=== PATIENT | female | born 1965 | race Caucasian/White ===

== ENCOUNTER → 2017-09-14 08:48 | Outpatient (CLI) | payer BC, SELFPAY ==
--- NOTE | 2017-09-14 09:08 | BI_ITS ---
MAMMOGRAPHY - BILATERAL SCREENING 3-D SERA SYNTHESIS REASON FOR EXAM: Female, 51 years old. Bilateral Screening 3-D tomosynthesis PERTINENT HISTORY: No significant family history. TECHNIQUE: 2-D mammograms and 3-D Sera synthesis of the breast (s) were performed. CAD was performed. COMPARISON: August 19, 2015, July 09, 2014 FINDINGS: The breast composition is composed of scattered fibroglandular density. Scattered benign calcifications are seen. No dense spiculated masses or suspicious microcalcifications are identified. No architectural distortion is identified. There is no skin thickening or retraction. There has been no significant change since the prior study. BI/SCREENING MAMM (CAD), BILAT IMPRESSION: No mammographic signs of malignancy. Routine yearly mammograms recommended. ASSESSMENT CATEGORY: BIRADS Category 2: Benign. A letter regarding these results will be sent to the patient by the facility within 30 days. FOLLOW UP RECOMMENDATION: Yearly follow up mammogram recommended. (A) Approximately 10% of breast cancers are not detected by mammography. A normal mammogram should not delay biopsy of a clinically suspicious abnormality. Electronically Signed: Carlos Alberto Tobar MD at 18:04 EDT , Service support ,
== END ==
PROVIDERS: Family Provider Family Medicine; PCP Family Medicine; Visit Provider Obstetrics & Gynecology
DX: Z12.31 Encounter for screening mammogram for malignant neoplasm of breast (principal)
CPT/HCPCS: 77063; 77067

== ENCOUNTER 2018-04-30 11:38 | Day surgery (SDC) | payer BC, SELFPAY ==
--- NOTE | 2018-04-30 | IMM_PTH ---
PATIENT: MARLENE SEAMAN LOC: EN U#:[id number] AGE/SX: 52/F ROOM: RE04/30/[address]: Dr. Edd Obregon MD : 1965 BED: DIS: 04/30/2018 SPEC #: [id number] RECD: 05/02/18 11:03 STATUS: CAROLINE REMarimar #: [id number] YUNIER: 04/30/18 00:[address]: Edd Obregon DEPT: IMMUNOHISTOCHEMISTRY RECD BY: Alla Baker ENTERED: 05/02/18 11:03 SP TYPE: IMMUNO OTHR DR: Dr. Ismael Rios MD Tissues: A - Stomach, NOS Procedures: H Pylori (initial) PHYSICIAN & INSTITUTION [place] [id number] SPECIMEN INFORMATION: Tissue Source: A - Antral biopsy Clinical Info: Constipation, LLQ pain, family history of cancer Specimen Number: [id number] CPT code: 15253 METHODOLOGY: Deparaffinized sections of prefer/formalin-fixed tissue or PAP/DQ stained slides are incubated with monoclonal/polyclonal antibodies/oligonucleotide probes. Localization is made via biotin free immunoperoxidase method. Appropriate controls are performed and reacted as expected. Results on target cell population are indicated in the following table: RESULTS: ANTIBODY / CLONE RESULT Block A H Pylori (polyclonal) negative These tests were developed and their performance characteristics determined by [facility]. They may not have been cleared or approved by the U.S. Food and Drug Administration. The FDA has determined that such clearance or approval is not necessary. INTERPRETATION: A. Antral biopsy: Negative for Helicobacter pylori. AM:giulia 05/05/18
--- NOTE | 2018-04-30 06:54 | HP.PCM_ITS ---
History and Physical Date of Admission: 04/30/18 Becki Carballo a 52 year old female who is a consultation requested by Dr. Rios?for an opinion regarding LLQ pain. ?My final recommendations will be communicated back to the requesting physician by way of shared Medical record. The patient has not?been seen previously. The patient is not aware of a family?history of colon cancer. ? The patient was seen by ?on 04/10/18, leading to this consultation. ?That note has been reviewed and part as follows: Has been having bowel issues for several years, but has decided since she is of age for colonoscopy she would discuss these issues with provider. ?She has been having constipation, wont have BM for a week then she will have LLQ pain then has BM that starts out hard then is diarrhea half way through. ?Unsure if she has any family hx of colon cancer, cancers do run in her family. ?She did use Miralax in past, but that seemed to cause her to be bloated so she hasn't been taking that. ?Has used Fiber supplements in the past. ? Component Latest Ref Rng & Units 04/03/2018 Protein, Total 6.3 - 8.0 g/dL 7.3 Albumin 3.9 - 4.9 g/dL 4.2 Calcium 8.5 - 10.2 mg/dL 9.4 Bilirubin, Total 0.2 - 1.3 mg/dL 0.3 Alkaline Phosphatase 34 - 123 U/L 35 AST 13 - 35 U/L 20 Glucose 74 - 99 mg/dL 85 BUN 7 - 21 mg/dL 12 Creatinine 0.58 - 0.96 mg/dL 0.87 Sodium 136 - 144 mmol/L 137 Potassium 3.7 - 5.1 mmol/L 4.3 Chloride 97 - 105 mmol/L 100 CO2 22 - 30 mmol/L 24 Anion Gap 9 - 18 mmol/L 13 ALT 7 - 38 U/L 10 eGFR- ? >60 eGFR-All Other Races . >60 Phosphorus 2.7 - 4.8 mg/dL 3.1 Magnesium 1.7 - 2.3 mg/dL 2.0 ? Presenting complaint: The patient presents today reporting abdominal pain and altered bowel habits off and on for years. ?Really bad when her daughter was born 17 yrs ago. ?She can't recall and issues when in teens or early twenties. ? The patient tells me that she will have bright red blood with constipation - anal tears. ? The patient isn't aware of any colon cancer in her family. Mother had stomach cancer. ?? . ? REVIEW OF SYSTEMS: GENERAL: No unplanned weight loss. RESPIRATORY: Negative for cough, hemoptysis, wheezing, COPD, dyspnea or shortness of breath CARDIOVASCULAR: ?Notes occasional palpitations - has had the work up. GI: The patient states that her appetite has been adequate. ?There has been no?nausea, no?vomiting. She denies?dysphagia and denies?odynophagia. There has not?been indigestion or?heartburn. There has not?been positional?regurgitation. Bowel habits have been irregular. There has been diarrhea. There has ?been constipation. The patient admits to?rectal bleeding. There has not?been melena. Intermittent abdominal pain that is located in the left lower?quadrant. LEASING DIRECTOR: Negative for abnormal vaginal bleeding, abnormal vaginal discharge. ?LMP: medication induced amenorrhagia. PSYCH: Sees Dr. Severino. HEMATOLOGY/LYMPHOLOGY Negative for prolonged bleeding, bruising easily or swollen nodes ENDOCRINE: No thyroid or diabetes. NEURO: ?No history of headaches, syncope, paralysis, seizures or tremors All other reviewed and negative other than HPI. ? ? PAST MEDICAL HISTORY PAST MEDICAL HISTORY Diagnosis Date ? Anorexia nervosa, restricting type ? ? Anxiety ? ? Ascending aorta dilation (HCC) ? ? 3.5 cm ? Cervical disc disease ? ? C6-7 ? Eating disorder, unspecified ? ? Esophageal reflux ? ? Lung nodule ? ? right ? Major depressive disorder, recurrent episode, mild (HCC) ? ? PTSD (post-traumatic stress disorder) ? ? Snoring ? ? PAST SURGICAL HISTORY PAST SURGICAL HISTORY Procedure Laterality Date ? LAMINECTOMY,CERVICAL ? 03/14/12 ? Laminectomy, cervical, diskectomy with fusion. ? LAPAROSCOPIC CHOLEYCYSTECTOMY ? 1996 ? Cholecystectomy, lap ? LIGATE FALLOPIAN TUBE ? 2001 ? Tubal ligation ? REPAIR UMBILICAL NICA,5+Y/O,REDUC ? 06/11/2007 ? Simple ? FAMILY HISTORY FAMILY HISTORY Problem Relation Age of Onset ? Hypertension Mother ? ? Cancer Maternal Grandmother ?Stomach ? Cancer Paternal Grandmother ?COPD ? Alcohol/Drug Maternal Grandfather ? ? Ischemic Heart Disease Maternal Grandfather ? ? Hypertension Maternal Grandfather ? ? Hypertension Brother ? ? other (Lung cancer) Paternal Grandfather ? ? other (pancreatic ca) Paternal Grandfather ?4 MGM siblings and patient's cousins. ? CURRENT MEDICATIONS ? Current Outpatient Prescriptions: buPROPion XL (WELLBUTRIN XL) 300 mg 24 hr tablet Take 1 tablet by mouth once daily. Disp: 30 tablet Rfl: 6 cholecalciferol, vitamin D3, (VITAMIN D3 ORAL) Take 1,000 mg by mouth once daily. Disp: Rfl: Drospirenone-Ethinyl Estradiol 3-0.02 mg per tablet Take 1 tablet by mouth once daily. Disp: Rfl: 0 [place]-3 Fatty Acids (OMEGA 3) 550 mg ORAL Cap Take one(1) tablet daily. Disp: Rfl: 0 Swab (NO-STING SKIN-PREP) swab 1 application once daily as needed (prior to attaching TENS unit pads). Disp: 50 Each Rfl: 1 TENS unit and electrodes cmpk Use as instructed. Disp: 1 Device Rfl: 0 traZODone (DESYREL) 50 mg tablet Take 1-2 tablets by mouth daily at bedtime. Disp: 60 tablet Rfl: 6 ? No current facility-administered medications for this visit. ? ? SOCIAL HISTORY: Patient is . She has never smoked. ?She?reports her alcohol use as occasionally having a glass of wine. She denies?recreational drug use. ? ? PHYSICAL EXAMINATION: Blood pressure 123/80, pulse 93, height 162.6 cm (5' 4), weight 57.8 kg (127 lb 6.4 oz). General Appearance: Well appearing, alert, in no acute distress, well-hydrated, well nourished. Skin: Skin color, texture, turgor normal, no suspicious rashes or lesions. Head: Normocephalic, no masses, lesions, or abnormalities. Eyes: Anicteric sclera. Oropharynx: Lips, mucosa, and tongue normal, teeth and gums normal, oropharynx normal. Neck: Supple, no adenopathy. Lungs: lungs clear to auscultation. Heart: RRR without murmur. Abdomen: Abdomen soft. Slight tenderness to palpation LLQ, non-tender otherwise. Bowel sounds normal. No masses, organomegaly. Extremities: No deformities or?edema. Peripheral Pulses: Normal. Neurologic: Gait normal. Sensation grossly intact. ? ? Impression: Family history of stomach cancer 2)colorectal cancer screening ?3)intermittent LLQ pain ? ? Plan: The patient will be scheduled for an upper endoscopy and?colonoscopy. ?She will require MAC due to anxiety.?Preparation for the procedures, using GoLytely as the laxative, have been explained in detail. ?The risks, benefits, anticipated outcomes and possible complications were mentioned. I explained the procedure in understandable terms and the patient was given printed material concerning the planned procedure. The patient had the opportunity to ask questions concerning the planned procedure. The patient freely consents to the planned procedure. ? ? The patient is encouraged to call with any questions or concerns, or should there be any change ?in health status between now and the scheduled procedure. ? I have personally interviewed and examined this patient. ?I have read the information that the HUMAN PERFORMANCE CONSULTANT?documented in this encounter. I spent 30?minutes in the visit, with more than 50% of the total [id number] time of the visit in counseling / coordination of care. ?? Laxmi Arriaga RN DISTILLERY MILLER.ELECTRIC FAN ASSEMBLER
[2018-04-30 12:15] VITALS: BP 95/64; PULSE 64; RESP 16; TEMP 36.9; O2SAT 100; BMI 21.8
--- NOTE | 2018-04-30 13:00 | COLBX_PTH ---
PATIENT: MARLENE SEAMAN LOC: EN U#:[id number] AGE/SX: 52/F ROOM: RE04/30/[address]: Dr. Edd Obregon MD : 1965 BED: DIS: 04/30/2018 SPEC #: [id number] RECD: 04/30/18 15:14 STATUS: CAROLINE KEN #: [id number] YUNIER: 04/30/18 13:[address]: Edd Obregon DEPT: SURGICAL PATHOLOGY RECD BY: Rolando Bryan ENTERED: 05/01/18 12:09 SP TYPE: COLON BX OTHR DR: Dr. Ismael Rios MD Tissues: A - Gastric mucous membrane B - Sigmoid colon biopsy Procedures: Surgery Specimen Level IV HEADER OPERATION: Colonoscopy, EGD ([facility] [place]) PRE-OP DIAGNOSIS: Family history of cancer, constipation, LLQ pain TISSUE SUBMITTED: A - Antral biopsy, B - Sigmoid polyps MICROSCOPIC DIAGNOSIS A. Gastric antrum, biopsy: Mild chronic gastritis. B. Sigmoid colon polyps, biopsy: Two fragments of tubular adenoma. AM:milton 05/02/18 COMMENT A. The results of immunohistochemistry for Helicobacter pylori will be reported separately ([id number]). MICROSCOPIC DESCRIPTION Slides are reviewed. GROSS DESCRIPTION A - Received in fixative is one container labeled with the patient's name and designated antral biopsy. The specimen consists of one irregular fragment of light morrison soft tissue that measures 0.3 x 0.3 x 0.1 cm. The specimen is totally submitted in one cassette. B - Received in fixative is one container labeled with the patient's name and designated sigmoid polyp. The specimen consists of two irregular fragments of morrison polypoid tissue that in aggregate measure 1 x 0.5 x 0.3 cm. The specimen is totally submitted in one cassette. / SJ:milton 05/01/18 TC:5 CPT: 91404 x2
[2018-04-30 14:14] VITALS: BP 109/64; BP 95/64; PULSE 76; RESP 16; TEMP 36.3; O2SAT 100
[2018-04-30 14:19] VITALS: BP 122/63; BP 95/64; PULSE 81; RESP 16; O2SAT 100
[2018-04-30 14:24] VITALS: BP 122/60; BP 95/64; PULSE 78; RESP 16; O2SAT 100
[2018-04-30 14:29] VITALS: BP 95/64; BP 99/69; PULSE 89; RESP 16; TEMP 36.8; O2SAT 100
[2018-04-30 14:59] VITALS: BP 95/64
--- NOTE | 2018-05-05 11:17 | OP.ENDO_ITS ---
Patient Name: Becki Carballo Procedure Date: 04/30/2018 1:34 PM Date of : 1965 Age: 52 Procedure: Upper GI endoscopy Indications: Family history of gastric cancer Providers: Edd Obregon MD Referring MD: Ismael Rios Medicines: Monitored Anesthesia Care Patient Profile: This is a 52 year old female. Refer to note in patient chart for documentation of history and physical. Complications: No immediate complications. Procedure: Pre-Anesthesia Assessment: - Prior to the procedure, a History and Physical was performed, and patient medications and allergies were reviewed. The patient is competent. The risks and benefits of the procedure and the sedation options and risks were discussed with the patient. All questions were answered and informed consent was obtained. Patient identification and proposed procedure were verified by the physician, the nurse and the soda flaker in the procedure room. Mental Status Examination: alert and oriented. Airway Examination: normal oropharyngeal airway and neck mobility. Respiratory Examination: clear to auscultation. CV Examination: normal. Prophylactic Antibiotics: The patient does not require prophylactic antibiotics. Prior Anticoagulants: The patient has taken no previous anticoagulant or antiplatelet agents. After reviewing the risks and benefits, the patient was deemed in satisfactory condition to undergo the procedure. The anesthesia plan was to use monitored anesthesia care (MAC). Immediately prior to administration of medications, the patient was re-assessed for adequacy to receive sedatives. The heart rate, respiratory rate, oxygen saturations, blood pressure, adequacy of pulmonary ventilation, and response to care were monitored throughout the procedure. The physical status of the patient was re-assessed after the procedure. After obtaining informed consent, the endoscope was passed under direct vision. Throughout the procedure, the patient's blood pressure, pulse, and oxygen saturations were monitored continuously. The gastroscope was introduced through the mouth, and advanced to the jejunum. The upper GI endoscopy was accomplished without difficulty. The patient tolerated the procedure well. Scope In: 1:43:44 PM Scope Out: 1:46:29 PM Total Procedure Duration Time 0 hours 2 minutes 45 seconds Findings: The examined jejunum was normal. The in the duodenum was normal. Localized mild inflammation characterized by erosions, erythema and friability was found in the gastric antrum. Biopsies were taken with a cold forceps for Helicobacter pylori testing using PyloriTek test. Biopsies were taken with a cold forceps for histology. The examined esophagus was normal. Impression: - Normal examined jejunum. - Normal. - Gastritis. Biopsied. - Normal esophagus. Recommendation: - Return to nurse practitioner in 1 week. - Continue present medications. Procedure Code(s): --- Professional --- 12811, Esophagogastroduodenoscopy, flexible, transoral; with biopsy, single or multiple CPT copyright 2017 [employer]. All rights reserved. The codes documented in this report are preliminary and upon ehs manager review may be revised to meet current compliance requirements. Edd Obregon MD 04/30/2018 2:18:37 PM This report has been signed electronically. Number of Addenda: 0 Note Initiated On: 04/30/2018 1:34 PM
--- NOTE | 2018-05-05 11:17 | OP.ENDO_ITS ---
Patient Name: Becki Carballo Procedure Date: 04/30/2018 1:48 PM Date of : 1965 Age: 52 Procedure: Colonoscopy Indications: Abdominal pain in the left lower quadrant, Constipation Providers: Edd Obregon MD Referring MD: Ismael Rios Medicines: Monitored Anesthesia Care Patient Profile: This is a 52 year old female. Refer to note in patient chart for documentation of history and physical. Last Colonoscopy: date unknown. Unable to locate last colonoscopy report. Complications: No immediate complications. Procedure: Pre-Anesthesia Assessment: - Prior to the procedure, a History and Physical was performed, and patient medications and allergies were reviewed. The patient is competent. The risks and benefits of the procedure and the sedation options and risks were discussed with the patient. All questions were answered and informed consent was obtained. Patient identification and proposed procedure were verified by the physician, the nurse and the plant operator helper in the procedure room. Mental Status Examination: alert and oriented. Airway Examination: normal oropharyngeal airway and neck mobility. Respiratory Examination: clear to auscultation. CV Examination: normal. Prophylactic Antibiotics: The patient does not require prophylactic antibiotics. Prior Anticoagulants: The patient has taken no previous anticoagulant or antiplatelet agents. After reviewing the risks and benefits, the patient was deemed in satisfactory condition to undergo the procedure. The anesthesia plan was to use monitored anesthesia care (MAC). Immediately prior to administration of medications, the patient was re-assessed for adequacy to receive sedatives. The heart rate, respiratory rate, oxygen saturations, blood pressure, adequacy of pulmonary ventilation, and response to care were monitored throughout the procedure. The physical status of the patient was re-assessed after the procedure. After I obtained informed consent, the scope was passed under direct vision. Throughout the procedure, the patient's blood pressure, pulse, and oxygen saturations were monitored continuously. The Colonoscope was introduced through the anus and advanced to the cecum, identified by the appendiceal orifice, ileocecal valve and palpation. The colonoscopy was performed without difficulty. The patient tolerated the procedure well. The quality of the bowel preparation was good. Scope In: 1:49:39 PM Scope Withdrawal Time 0 hours 11 minutes 48 seconds Scope Out: 2:09:51 PM Total Procedure Duration Time 0 hours 20 minutes 12 seconds Findings: The perianal and digital rectal examinations were normal. Three sessile polyps were found in the mid sigmoid colon. The polyps were small in size. These polyps were removed with a hot snare. Resection and retrieval were complete. The exam was otherwise without abnormality. The retroflexed view of the distal rectum and anal verge was normal and showed no anal or rectal abnormalities. Impression: - Three small polyps in the mid sigmoid colon, removed with a hot snare. Resected and retrieved. - The examination was otherwise normal. - The distal rectum and anal verge are normal on retroflexion view. Recommendation: - Discharge patient to home. - Resume previous diet. - Continue present medications. - Await pathology results. - Repeat colonoscopy in 5 years for screening purposes. - Return to nurse practitioner in 1 week. Procedure Code(s): --- Professional --- 84278, Colonoscopy, flexible; with removal of tumor(s), polyp(s), or other lesion(s) by snare technique CPT copyright 2017 [employer]. All rights reserved. The codes documented in this report are preliminary and upon workers compensation coordinator review may be revised to meet current compliance requirements. Edd Obregon MD 04/30/2018 2:21:45 PM This report has been signed electronically. Number of Addenda: 0 Note Initiated On: 04/30/2018 1:48 PM
--- OUTSIDE RECORDS SUMMARY | 2018-07-05 07:46 | XMS RPT_ITS ---
:1965 Author Organization OHIP Care Team Providers Name Role Phone SENDY HAMM Attending Unavailable SENDY HAMM Referring Unavailable Patric Mcbride Primary Care Unavailable SENDY HAMM Attending Unavailable SENDY HAMM Referring Unavailable Patric Mcbride Primary Care Unavailable SENDY HAMM Attending Unavailable SENDY HAMM Referring Unavailable Patric Mcbride Primary Care Unavailable CHIQUITA MARTÍNEZ Attending Unavailable SENDY HAMM Referring Unavailable Patric Mcbride Primary Care Unavailable Mary Mar Attending Unavailable Patric Mcbride Primary Care Unavailable Areli Longoria Attending Unavailable Areli Longoria Referring Unavailable Patric Mcbride Primary Care Unavailable CIASENDY SALAS Attending Unavailable CIANCONESENDY Referring Unavailable CIANCONESENDY Attending Unavailable SENDY HAMM Referring Unavailable CHIQUITA MARTÍNEZ ([facility]) Attending Unavailable SENDY HMAM Referring Unavailable [email or web address], physician Attending Unavailable PROVIDER, UNKNOWN Referring Unavailable renanonisha, physician Primary Care Unavailable SANCHEZ DA SILVA Attending Unavailable SANCHEZ DA SILVA Referring Unavailable SANCHEZ DA SILVA Attending Unavailable SANCHEZ DA SILVA Referring Unavailable SANCHEZ DA SILVA Attending Unavailable SANCHEZ DA SILVA Referring Unavailable FAUSTO BOWLING, SANCHEZ M Attending Unavailable FAUSTO BOWLING, SANCHEZ M Referring Unavailable FAUSTO BOWLING, SANCHEZ M Attending Unavailable FAUSTO BOWLING, SANCHEZ M Referring Unavailable ELDERBROCK, PATRIC Burton Attending Unavailable FAUSTO BOWLING, SANCHEZ Gibson Attending Unavailable FAUSTO BOWLING, SANCHEZ M Referring Unavailable FAUSTO BOWLING, SANCHEZ M Attending Unavailable FAUSTO BOWLING, SANCHEZ M Referring Unavailable FAUSTO BOWLING, SANCHEZ M Attending Unavailable FAUSTO BOWLING, SANCHEZ M Referring Unavailable FAUSTO BOWLING, SANCHEZ M Attending Unavailable FAUSTO BOWLING, SANCHEZ M Referring Unavailable ELDERBROCK, PATRIC Burton Attending Unavailable RADHA CAMARA (AGRICULTURAL TECHNICIAN) Referring Unavailable FAUSTO BOWLING, SANCHEZ Gibson Attending Unavailable FAUSTO BOWLING, SANCHEZ Gibson Referring Unavailable FAUSTO BOWLING, SANCHEZ M Attending Unavailable FAUSTO BOWLING, SANCHEZ M Referring Unavailable FAUSTO BOWLING, SANCHEZ M Attending Unavailable FAUSTO BOWLING, SANCHEZ M Referring Unavailable FAUSTO BOWLING, SANCHEZ M Attending Unavailable FAUSTO BOWLING, SANCHEZ M Referring Unavailable FAUSTO BOWLING, SANCHEZ M Attending Unavailable FAUSTO BOWLING, SANCHEZ M Referring Unavailable FAUSTO BOWLING, SANCHEZ M Attending Unavailable FAUSTO BOWLING, SANCHEZ M Referring Unavailable RADHA CAMARA (AGRICULTURAL TECHNICIAN) Referring Unavailable RADHA CAMARA (AGRICULTURAL TECHNICIAN) Referring Unavailable RADHA CAMARA (AGRICULTURAL TECHNICIAN) Attending Unavailable RADHA CAMARA (AGRICULTURAL TECHNICIAN) Referring Unavailable FAUSTO BOWLING, SANCHEZ Gibson Attending Unavailable FAUSTO BOWLING, SANCHEZ M Referring Unavailable FAUSTO BOWLING, SANCHEZ M Attending Unavailable FAUSTO BOWLING, SANCHEZ M Referring Unavailable FAUSTO BOWLING, SANCHEZ M Attending Unavailable FAUSTO BOWLING, SANCHEZ M Referring Unavailable FAUSTO BOWLING, SANCHEZ M Attending Unavailable FAUSTO BOWLING, SANCHEZ M Referring Unavailable FAUSTO BOWLING, SANCHEZ M Attending Unavailable FAUSTO BOWLING, SANCHEZ M Referring Unavailable FAUSTO BOWLING, SANCHEZ M Attending Unavailable FAUSTO BOWLING, SANCHEZ M Referring Unavailable RADHA CAMARA (AGRICULTURAL TECHNICIAN) Attending Unavailable RODOLFOKASI PARIKH (LUMP MACHINE OPERATOR) Referring Unavailable FAUSTO BOWLING, SANCHEZ M Attending Unavailable FAUSTO BOWLING, SANCHEZ M Referring Unavailable FAUSTO BOWLING, SANCHEZ M Attending Unavailable FAUSTO BOWLING, SANCHEZ M Referring Unavailable FAUSTO BOWLING, SANCHEZ M Attending Unavailable FAUSTO BOWLING, SANCHEZ M Referring Unavailable RODOLFO, KASI (LUMP MACHINE OPERATOR) Attending Unavailable RODOLFOKASI PARIKH (LUMP MACHINE OPERATOR) Referring Unavailable FAUSTO BOWLING, SANCHEZ Gibson Attending Unavailable FAUSTO BOWLING, SANCHEZ Gibson Referring Unavailable FAUSTO BOWLING, SANCHEZ Gibson Attending Unavailable FAUSTO BOWLING, SANCHEZ Gibson Referring Unavailable CHIQUITA MARTÍNEZ Referring Unavailable THORPEDALLAS (AGRICULTURAL TECHNICIAN) Referring Unavailable FAUSTO BOWLING, SANCHEZ Gibson Attending Unavailable FAUSTO BOWLING, SANCHEZ Gibson Referring Unavailable FAUSTO BOWLING, SANCHEZ Gibson Attending Unavailable FAUSTO BOWLING, SANCHEZ Gibson Referring Unavailable THORPEDALLAS (AGRICULTURAL TECHNICIAN) Attending Unavailable ELDERBROCK, PATRIC Burton Referring Unavailable ELDERBROCK, PATRIC Burton Attending Unavailable CIANCONESENDY Referring Unavailable FAUSTO BOWLING, SANCHEZ Gibson Attending Unavailable FAUSTO BOWLING, SANCHEZ Gibson Referring Unavailable FAUSTO BOWLING, SANCHEZ Gibson Attending Unavailable FAUSTO BOWLING, SANCHEZ Gibson Referring Unavailable FAUSTO BOWLING, SANCHEZ Gibson Attending Unavailable FAUSTO BOWLING, SANCHEZ Gibson Attending Unavailable FAUSTO BOWLING, SANCHEZ Gibson Referring Unavailable FAUSTO BOWLING, SANCHEZ Gibson Attending Unavailable FAUSTO BOWLING, SANCHEZ Gibson Referring Unavailable RADHA CAMARA (AGRICULTURAL TECHNICIAN) Attending Unavailable ELDERBROCK, PATRIC Burton Referring Unavailable FAUSTO BOWLING, SANCHEZ Gibson Attending Unavailable FAUSTO BOWLING, SANCHEZ Gibson Referring Unavailable FAUSTO BOWLING, SANCHEZ Gibson Attending Unavailable FAUSTO BOWLING, SANCHEZ Gibson Referring Unavailable FAUSTO BOWLING, SANCHEZ Gibson Attending Unavailable FAUSTO BOWLING, SANCHEZ Gibson Referring Unavailable PROBLEMS PROBLEMS DATE TYPE CONDITION / CODE ATTENDING STATUS SOURCE 05/05/2018 Active Functional NA Active [facility] dyspepsia / [facility] [place] K30(ICD-10) Repository 10/07/2017 Active Pain in right hip NA Active [facility] / M25.551(ICD-10) [facility] [place] Repository 10/07/2017 Active Pain in left hip NA Active [facility] / M25.552(ICD-10) [facility] [place] Repository 10/07/2017 Active Other fatigue / NA Active [facility] R53.83(ICD-10) [facility] [place] Repository 06/05/2016 Active Vitamin D SENDY HAMM Active [facility] deficiency, [facility] [place] unspecified / Repository E55.9(ICD-10) 02/20/2016 Active Post-traumatic CIANCONESENDY Active [facility] stress disorder, [facility] unspecified / Repository F43.10(ICD-10) 02/20/2016 Active Anorexia nervosa, GALADAVIDSENDY SCHUMACHER Active [facility] restricting type [facility] [place] / F50.01(ICD-10) Repository 02/20/2016 Active Major depressive SENDY HAMM Active [facility] disorder, [facility] [place] recurrent, mild / Repository F33.0(ICD-10) 02/20/2016 Active Anxiety disorder, SENDY HAMM Active [facility] unspecified / [facility] [place] F41.9(ICD-10) Repository 06/05/2016 Admitting Unknown / SENDY HAMM Active [facility]K(Unknown) [facility] Repository 07/03/2017 Active Unknown / FAUSTO MCCULLOUGH Active [facility] UNK(Unknown) SANCHEZ Gibson [facility] Repository PROCEDURES PROCEDURES No Procedure Records FoundRESULTS RESULTS PROGRESS Observed: 05/09/2018 Status: COMPLETED Source: [place] 9:25 AM [facility] REPOSITORY HNO ID: [id number] Author: Chiquita Martínez Service: (none) Author Type: Nurse Practitioner Type: Progress Notes Filed: 05/09/2018 9:25 AM Note Text: Reviewed results. Chiquita Martínez APRN.JULY TSH Collected: 05/08/2018 Status: F Source: [place] 11:50 AM [facility] REPOSITORY TYPE CODE TESTS RESULT OUT OF RANGE REFERENCE UNITS LAB TSH 0.400-5.500 uU/mL TSH 2.530 Result Comment: If the patient is , TSH reference range varies by gestational period: First Trimester 0.100-2.500 uU/mL Second Trimester 0.200-3.000 uU/mL Third Trimester 0.300-3.000 uU/mL References: 1. Harrison L, Myrtle M, Sage EK, et al. Management of Thyroid Dysfunction during and : An Endocrine Society Clinical Practice Guideline. J Clin Endocrinol Metab, 2012:97:7625-5296. 2. Jamie TIM. Overview of thyroid disease in . UpToDate. 2016. Accessed on September 30, 2015. Performed By: #### TSH, VITD #### [facility] [address] [place] [address] VITAMIN D 25 HYDROXY Collected: 05/08/2018 Status: F Source: [place] 11:50 AM [facility] REPOSITORY TYPE CODE TESTS RESULT OUT OF REFERENCE UNITS RANGE LAB VITD 31.0-80.0 ng/mL Vitamin D 25 56.3 Hydroxy Result Comment: Classification of 25 [place] Vitamin D status: Insufficiency/Moderate Deficiency: < or = 30 ng/mL Sufficiency/Optimal Levels: 31 to 80 ng/mL Toxicity: > 100 ng/mL Test performed by chemiluminescent immunoassay. Performed By: #### TSH, VITD #### [facility] [address] [place], [place] [address] OPERATIVE REPORT - Observed: 05/07/2018 Status: F Source: [facility] 12:46 PM [facility] REPOSITORY [facility] Medical Records Department [address] [place] [address] Operative Report - Endoscopy MR#: [id number] Acct: [id number] Name: MARLENE CARBALLO Rep #: [id number] : 1965 52 From: Areli Longoria MD PCP: Patric Mcbride MD Status: [facility] Patient Name: Marlene Carballo Procedure Date: 04/30/2018 1:34 PM Date of : 1965 Age: 52 Procedure: Upper GI endoscopy Indications: Family history of gastric cancer Providers: Areli Longoria MD Referring MD: Patric Mcbride Medicines: Monitored Anesthesia Care Patient Profile: This is a 52 year old female. Refer to note in patient chart for documentation of history and physical. Complications: No immediate complications. Procedure: Pre-Anesthesia Assessment: - Prior to the procedure, a History and Physical was performed, and patient medications and allergies were reviewed. The patient is competent. The risks and benefits of the procedure and the sedation options and risks were discussed with the patient. All questions were answered and informed consent was obtained. Patient identification and proposed procedure were verified by the physician, the nurse and the fraud manager in the procedure room. Mental Status Examination: alert and oriented. Airway Examination: normal oropharyngeal airway and neck mobility. Respiratory Examination: clear to auscultation. CV Examination: normal. Prophylactic Antibiotics: The patient does not require prophylactic antibiotics. Prior Anticoagulants: The patient has taken no previous anticoagulant or antiplatelet agents. After reviewing the risks and benefits, the patient was deemed in satisfactory condition to undergo the procedure. The anesthesia plan was to use monitored anesthesia care (MAC). Immediately prior to administration of medications, the patient was re-assessed for adequacy to receive sedatives. The heart rate, respiratory rate, oxygen saturations, blood pressure, adequacy of pulmonary ventilation, and response to care were monitored throughout the procedure. The physical status of the patient was re-assessed after the procedure. After obtaining informed consent, the endoscope was passed under direct vision. Throughout the procedure, the patient's blood pressure, pulse, and oxygen saturations were monitored continuously. The gastroscope was introduced through the mouth, and advanced to the jejunum. The upper GI endoscopy was accomplished without difficulty. The patient tolerated the procedure well. Scope In: 1:43:44 PM Scope Out: 1:46:29 PM Total Procedure Duration Time 0 hours 2 minutes 45 seconds Findings: The examined jejunum was normal. The in the duodenum was normal. Localized mild inflammation characterized by erosions, erythema and friability was found in the gastric antrum. Biopsies were taken with a cold forceps for Helicobacter pylori testing using PyloriTek test. Biopsies were taken with a cold forceps for histology. The examined esophagus was normal. Impression: - Normal examined jejunum. - Normal. - Gastritis. Biopsied. - Normal esophagus. Recommendation: - Return to nurse practitioner in 1 week. - Continue present medications. Procedure Code(s): --- Professional --- 19339, Esophagogastroduodenoscopy, flexible, transoral; with biopsy, single or multiple CPT copyright 2017 [employer]. All rights reserved. The codes documented in this report are preliminary and upon refining supervisor review may be revised to meet current compliance requirements. Areli Longoria MD 04/30/2018 2:18:37 PM This report has been signed electronically. Number of Addenda: 0 Note Initiated On: 04/30/2018 1:34 PM 05/05/18 1016 Date Areli Longoria MD Cosigner Signature: Date (if indicated) CC: Patric Mcbride MD; Areli Longoria MD Date Dictated: 04/30/18 1334 Date Transcribed: Kitchen Utility Associate: MILTON Signed PROGRESS Observed: 05/06/2018 Status: COMPLETED Source: [place] 8:23 AM [facility] REPOSITORY HNO ID: [id number] Author: Chiquita Martínez Service: (none) Author Type: Nurse Practitioner Type: Progress Notes Filed: 05/07/2018 3:50 PM Note Text: Time In: 8:23 AM Interim History: Marlene Carballo is a 52 year old female who presents for a follow up with symptoms of Depression; and Anxiety/ Anorexia, interviewed alone. My depression has been worse. Patient endorses exacerbation of depressive symptoms since January 2018. She shared that she had transitioned to a new trauma therapist who was attempting to move her through her trauma work more intensively than her prior trauma therapist. She indicates she began struggling with more flashbacks and intrusive recall of her trauma, and elected to take a break from her trauma work until her mood improved. She notes that since that time, her anxious symptoms and PTSD related symptoms have improved, but her depressive symptoms have worsened. She reports not feeling excited for [place] and not being excited about her son's being . She reports efforts to use DBT skills, with opposite to emotion action and maintaining an attitude of gratitude; she describes feelings of frustration with her current mood as she indicates everything in her life is going well currently, but she doesn't feel good. She endorses intermittent episodes of imagining herself not being here anymore wondering if everyone would be better off without (her), feeling this way 2x/week. She convincingly denies SI plan or intent. She indicates her children and future grandchild give her a sense of hope. She endorses urges to escape into sleep. She reports feeling too sedated with Trazodone and self discontinued use. She is now taking 2 melatonin tabs (dose unknown) and 1/2 Benadryl (12.5 mg) nightly, and getting 8-9 hrs of nonrestorative sleep. She reports her current mood is associated with urges to isolate, lowered motivation interest, and energy. She continues to maintain ADLs, and is on task at work and home. Ms. Carballo shared that her eating is ok, could be better sharing that she lacks an appetite currently, secondary to her lowered mood. She reports that she continues to eat 3 small meals and 1-2 snacks daily. Ms. Carballo endorses continued urges for weight loss, but denies intentional effort to control or influence her weight at this time. She denies self weighing. She denies current use of diet pills, laxatives or Sudafed. She shared that she self discontinued Y[place]utat 2 yrs ago, secondary to fears of weight gain, despite this not manifesting after years of Y[place]utat use. She endorsed constant ruminative anxiety regarding her weight with Y[place]utat use, and refuses to use it again secondary to her high distress when taking it. 24 recall - B: toast, yogurt L: polish muffin with egg D: pasta, chicken and vegetables Ms. Carballo is currently seeing Dr. Fausto Mccullough for individual therapy, once/week. She shared that she paused her trauma therapy this past January, after having to switch to a new therapist from Andrew to [facility] in November 2017. She shared that the trauma therapy had become too intensive, triggering frequent flashbacks and exacerbating her anxious symptoms. She elected to take a break from this therapy with intention to return the end of April 2018, but now is uncertain if she is ready to begin again. Past Psychotropic Medication Trials: cymbalta - night sweats zoloft - weight gain prozac - unsure why changed effexor - reports did not do well on Yakutat - significant anxiety re: risk for weight gain; no weight gain in evidence during use Trazodone - too sedating Past/Fam/Soc Hx Marlene Carballo currently is currently working as a nurse at [employer] and doing 2 shifts per week at the [employer]. 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 She indicates when working at the [employer], 1/2 of her shifts are 8 hr evening shifts and 1/2 are 8 hr night shifts. She reports tolerating the night shifts without difficulty, noting that these are shorter than shifts she used to work at the hospital. She shared that she meets with friends once every 2 weeks but denies having any outside interests or hobbies other than work and home life. Family/social history -Wilmar 4 children - Reggie (24), Mitch (22) ,Lizett Zapien (19), Mariam (17yo - has ADD); She reports her children are doing well and she is getting along with them. 3 children continue to live at home; Reggie is in the [employer] - and lives in [place] with his who is with their first child Alcohol: none Denies illicit drug use Past medical history Cervical fusion ? Current Psychiatric Meds: Wellbutrin XL 300 mg daily PAST MEDICAL HISTORY Diagnosis Date - Anorexia nervosa, restricting type - Anxiety - Ascending aorta dilation (HCC) 3.5 cm - Cervical disc disease C6-7 - Esophageal reflux - Lung nodule right - Major depressive disorder, recurrent episode, mild (HCC) - PTSD (post-traumatic stress disorder) - Snoring FAMILY HISTORY Problem Relation Age of Onset - Hypertension Mother - Cancer Maternal Grandmother Stomach - Cancer Paternal Grandmother COPD - Alcohol/Drug Maternal Grandfather - Ischemic Heart Disease Maternal Grandfather - Hypertension Maternal Grandfather - Hypertension Brother - other (Lung cancer) Paternal Grandfather - other (pancreatic ca) Paternal Grandfather 4 MGM siblings and patient's cousins. Social History Marital status: Spouse name: Isabelle Years of education: Number of children: 4 Occupational History Occupation Employer Comment [employer]* [employer]* Social History Main Topics Smoking status: Never Smoker Smokeless tobacco: Never Used Alcohol use: No Drug use: No Sexual activity: Yes Partners with: Male General Observations Appearance:Neatly groomed Demeanor:Cooperative Activity:Normal Eye Contact:Good Speech Rate:Normal Volume:Soft Articulation:Clear Coherent: Yes Spontaneous:Yes Language Naming:Intact Repetition:Intact Mood AND Affect Depression:Mild Anxiety:None Anger:None Anhedonia;Mild Euphoria:None Affect:Blunted Associations:Logical Process:Normal Knowledge: Good Delusion: re: body image Hallucination: No Suicidal Ideation:Thoughts of , but not suicide. Homicidal Ideation:No homicidal ideation, intent or plan. Judgement::Automatic Insight:Intellectual Orientation:Person, Place, Time and Situation Gait and Station: Steady, Straight Muscle Strength AND Tone: Muscle:Normal Strength:Normal Tone: Strong 3 or > Vital Signs: There were no vitals taken for this visit. Memory:Intact Attention:Good Concentration:Good Review Of Systems: Sleep:urges to escape into sleep; takes melatonin and Benadryl 12.5 mg nightly for sleep Headache: No Weakness:No Stiffness: No Tremor:No Gastrointestinal: Appetite:describes poor appetite but forces self to eat 3 small meals and 1-2 snacks Nausea: No Bowel movements: Normal Skin rash: No Stressors: Denies legal, medical, financial, occupational, or interpersonal stressors. Labwork: Reviewed past labwork including Vitamin D 10/07/17 WNL (39.4); last TSH 09/24/16 WNL (1.97) Diagnosis: 1. Major depressive disorder, recurrent episode, mild (HCC) - ICD9: 296.31, ICD10: F33.0 (primary diagnosis) 2. Anxiety - ICD9: 300.00, ICD10: F41.9 3. PTSD (post-traumatic stress disorder) - ICD9: 309.81, ICD10: F43.10 4. Anorexia nervosa, restricting type - ICD9: 307.1, ICD10: F50.01 Therapy/ Treatment Plan: - Follow Up Therapy: Continue follow-up with primary care physician Dr. Mcbride. Continue therapy with Dr. Sanchez Matos. Patient currently taking a break from Ria Granger at [place] of traumatic stress, stating she is waiting until depressive symptoms improve. Encouraged patient to begin exploring possible hobbies to pursue, as she reports no activities for herself outside of work and caring for her own children. Mindfulness to eating recommended. Lab requisition provided to obtain updated TSH and Vit D levels. Continue with current use of OTC Vitamin D 1000 iu daily. - 40 minutes of DBT oriented psychotherapy was provided as part of the session discussing opposite to emotion action for eating and socialization and healthy self soothing (+[id number]) - Psychotherapy was provided as part of session, Plan discussed including risks, benefits, and side effects of medications (ongoing discussion) and patient agreeable to plan, - Follow Up: in 1-2 months. - Medication Management: Continue with current regimen. Discussed obtaining updated labwork for Vit D level and TSH as last TSH obtained in September 2016, and Vit D level was 39.4 in September 2017. Patient wishes to wait for these results before considering medication changes. Discussed possible addition of Prozac. Patient refusing Y[place]utat at this time; she reports ruminative anxiety regarding potential weight gain with use of Yakutat despite no weight gain previously while taking it. Continue medication management and psychotherapy. Risks benefits alternatives of medications discussed with patient. Risks of Wellbutrin and disordered eating discussed including increased risk of seizure. Benefit continues to outweigh risk at this time. Patient acknowledges understanding that should ongoing weight loss and disordered eating symptoms persist that alternative medications may be better options. Current regimen: Wellbutrin XL 300 mg daily Trazodone 50 mg 1-2 tablets QHS PRN sleep - patient not currently taking as she reports too sedating. Medication orders placed this encounter buPROPion XL (WELLBUTRIN XL) 300 mg 24 hr tablet Sig: Take 1 tablet by mouth once daily. Dispense: 30 tablet Refill: 6 Case reviewed by MD Zana. Chiquita Martínez APRN.LUMP MACHINE OPERATOR Time Out:: 9:15AM AMYLASE Collected: 05/05/2018 Status: F Source: [place] 11:33 AM [facility] REPOSITORY TYPE CODE TESTS RESULT OUT OF REFERENCE UNITS RANGE LAB AMYL 30-104 U/L Amylase 58 Performed By: #### AMYL, LIPA #### [facility] [address] [place] [address] LIPASE Collected: 05/05/2018 Status: F Source: [place] 11:33 AM [facility] REPOSITORY TYPE CODE TESTS RESULT OUT OF REFERENCE UNITS RANGE LAB LIPA 16-61 U/L Lipase 38 Performed By: #### AMYL, LIPA #### [facility] [address] [place], [place] [address] PROGRESS Observed: 05/05/2018 Status: COMPLETED Source: [place] 11:22 AM [facility] REPOSITORY HNO ID: [id number] Author: Patric Mcbride Service: (none) Author Type: Physician Type: Progress Notes Filed: 05/05/2018 11:33 AM Note Text: Chief Complaint Patient presents with: Sinus Infection,frequent/recurring HPI Marlene Carballo is a 52 year old female who presents here today for sinus infection. Pt has been sick with head congestion, slight non productive cough, left ear pain, sinus pressure, facial pain, tooth pain x 12 days, SOB x 2 days. Denies any fevers or sore throat. Snot is discolored which has been going on now for the last week. Has been using Tylenol. She states that she normally does not get sick, did have a sinus infection 18 months ago. Has not been working last few days. Past medical history, appointments, medications, allergies reviewed. Previous Medical History PAST MEDICAL HISTORY Diagnosis Date - Anorexia nervosa, restricting type - Anxiety - Ascending aorta dilation (HCC) 3.5 cm - Cervical disc disease C6-7 - Esophageal reflux - Lung nodule right - Major depressive disorder, recurrent episode, mild (HCC) - PTSD (post-traumatic stress disorder) - Snoring Previous Surgical History PAST SURGICAL HISTORY Procedure Laterality Date - LAMINECTOMY,CERVICAL 03/14/12 Laminectomy, cervical, diskectomy with fusion. - LAPAROSCOPIC CHOLEYCYSTECTOMY 1996 Cholecystectomy, lap - LIGATE FALLOPIAN TUBE 2001 Tubal ligation - REPAIR UMBILICAL NICA,5+Y/O,REDUC 06/11/2007 Simple Family History FAMILY HISTORY Problem Relation Age of Onset - Hypertension Mother - Cancer Maternal Grandmother Stomach - Cancer Paternal Grandmother COPD - Alcohol/Drug Maternal Grandfather - Ischemic Heart Disease Maternal Grandfather - Hypertension Maternal Grandfather - Hypertension Brother - other (Lung cancer) Paternal Grandfather - other (pancreatic ca) Paternal Grandfather 4 MGM siblings and patient's cousins. Patient Allergies ALLERGIES No Known Allergies Current Medications Current Outpatient Prescriptions on File Prior to Visit: cholecalciferol, vitamin D3, (VITAMIN D3 ORAL) Take 1,000 mg by mouth once daily. buPROPion XL (WELLBUTRIN XL) 300 mg 24 hr tablet Take 1 tablet by mouth once daily. traZODone (DESYREL) 50 mg tablet Take 1-2 tablets by mouth daily at bedtime. Swab (NO-STING SKIN-PREP) swab 1 application once daily as needed (prior to attaching TENS unit pads). T[facility] unit and electrodes [facility] Use as instructed. Drospirenone-Ethinyl Estradiol 3-0.02 mg per tablet Take 1 tablet by mouth once daily. [place]-3 Fatty Acids (OMEGA 3) 550 mg ORAL Cap Take one(1) tablet daily. No current facility-administered medications on file prior to visit. 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 General Appearance: Well appearing, alert, in no acute distress, well-hydrated, well nourished.. Head: Facial tenderness. Ears: External ears normal, canals clear, left ear slightly red, no infection Oropharynx: Lips, mucosa, and tongue normal, teeth and gums normal, oropharynx normal. Neck: Supple, no adenopathy; thyroid symmetric, normal size, no bruits. Lungs: lungs clear to auscultation. No wheezing, rhonchi, rales. Heart: RRR without murmur, gallop, or rubs. No ectopy. Health Maintenance List HPV EVERY 5 YEARS due on 10/27/1997 DTAP,TDAP,TD(2 - Tdap) due on 10/13/2012 COLORECTAL CANCER SCREENING,SEE MODIFIER due on 10/27/2017 PAP EVERY 5 YEARS due on 06/27/2018 MAMMOGRAM due on 09/14/2018 LIPID SCREEN due on 02/01/2021 DIABETES SCREEN due on 04/03/2021 INFLUENZA Completed Data reviewed none ASSESSMENT/PLAN: 1. Acute non-recurrent frontal sinusitis - ICD9: 461.1, ICD10: J01.10 - Will begin treatment with Augmentin 875 mg PO BID for 10 days Follow up as needed or if sx continue or worsen. I agree with the Chief Complaint, ROS, and Past Histories independently gathered by the clinical production support specialist and the remaining scribed note accurately describes my personal service to the patient. Patric Mcbride MD The documentation for this note was completed by Rosalind Perdomo Ma acting as scribe for Patric Mcbride MD. May 05, 2018 11:22 AM. OPERATIVE REPORT - Observed: 05/05/2018 Status: F Source: [facility] 11:21 AM [facility] REPOSITORY [facility] Medical Records Department [address] [place] [address] Operative Report - Endoscopy MR#: [id number] Acct: [id number] Name: MARLENE CARBALLO Enedelia Rep #: [id number] : 1965 52 From: Areli Longoria MD PCP: Patric Mcbride MD Status: DEP [facility] Patient Name: Marlene Carballo Procedure Date: 04/30/2018 1:48 PM Date of : 1965 Age: 52 Procedure: Colonoscopy Indications: Abdominal pain in the left lower quadrant, Constipation Providers: Areli Longoria MD Referring MD: Patric Mcbride Medicines: Monitored Anesthesia Care Patient Profile: This is a 52 year old female. Refer to note in patient chart for documentation of history and physical. Last Colonoscopy: date unknown. Unable to locate last colonoscopy report. Complications: No immediate complications. Procedure: Pre-Anesthesia Assessment: - Prior to the procedure, a History and Physical was performed, and patient medications and allergies were reviewed. The patient is competent. The risks and benefits of the procedure and the sedation options and risks were discussed with the patient. All questions were answered and informed consent was obtained. Patient identification and proposed procedure were verified by the physician, the nurse and the fraud manager in the procedure room. Mental Status Examination: alert and oriented. Airway Examination: normal oropharyngeal airway and neck mobility. Respiratory Examination: clear to auscultation. CV Examination: normal. Prophylactic Antibiotics: The patient does not require prophylactic antibiotics. Prior Anticoagulants: The patient has taken no previous anticoagulant or antiplatelet agents. After reviewing the risks and benefits, the patient was deemed in satisfactory condition to undergo the procedure. The anesthesia plan was to use monitored anesthesia care (MAC). Immediately prior to administration of medications, the patient was re-assessed for adequacy to receive sedatives. The heart rate, respiratory rate, oxygen saturations, blood pressure, adequacy of pulmonary ventilation, and response to care were monitored throughout the procedure. The physical status of the patient was re-assessed after the procedure. After I obtained informed consent, the scope was passed under direct vision. Throughout the procedure, the patient's blood pressure, pulse, and oxygen saturations were monitored continuously. The Colonoscope was introduced through the anus and advanced to the cecum, identified by the appendiceal orifice, ileocecal valve and palpation. The colonoscopy was performed without difficulty. The patient tolerated the procedure well. The quality of the bowel preparation was good. Scope In: 1:49:39 PM Scope Withdrawal Time 0 hours 11 minutes 48 seconds Scope Out: 2:09:51 PM Total Procedure Duration Time 0 hours 20 minutes 12 seconds Findings: The perianal and digital rectal examinations were normal. Three sessile polyps were found in the mid sigmoid colon. The polyps were small in size. These polyps were removed with a hot snare. Resection and retrieval were complete. The exam was otherwise without abnormality. The retroflexed view of the distal rectum and anal verge was normal and showed no anal or rectal abnormalities. Impression: - Three small polyps in the mid sigmoid colon, removed with a hot snare. Resected and retrieved. - The examination was otherwise normal. - The distal rectum and anal verge are normal on retroflexion view. Recommendation: - Discharge patient to home. - Resume previous diet. - Continue present medications. - Await pathology results. - Repeat colonoscopy in 5 years for screening purposes. - Return to nurse practitioner in 1 week. Procedure Code(s): --- Professional --- 12393, Colonoscopy, flexible; with removal of tumor(s), polyp(s), or other lesion(s) by snare technique CPT copyright 2017 [employer]. All rights reserved. The codes documented in this report are preliminary and upon refining supervisor review may be revised to meet current compliance requirements. Areli Longoria MD 04/30/2018 2:21:45 PM This report has been signed electronically. Number of Addenda: 0 Note Initiated On: 04/30/2018 1:48 PM 04/30/18 1451 Date Areli Longoria MD Cosigner Signature: Date (if indicated) CC: Patric Mcbride MD; Areli Longoria MD Date Dictated: 04/30/18 1348 Date Transcribed: Kitchen Utility Associate: MILTON VARGAS Observed: 05/05/2018 Status: COMPLETED Source: [place] 11:20 AM [facility] RE[facility]IT[facility] MARLENE CARBALLO ([id number]) 1965 F Date Time Provider Department 05/05/18 11:20 AM PATRIC MCBRIDE During your visit today, we recorded the following information about you: Temperature Pulse Respiration Blood pressure 97.3 degrees 78/minute 16/minute 138/88 Weight 56.8 kg Patric Mcbride MD 05/05/2018 11:33 AM Signed Chief Complaint Patient presents with: Sinus Infection,frequent/recurring HPI Marlene Carballo is a 52 year old female who presents here today for sinus infection. Pt has been sick with head congestion, slight non productive cough, left ear pain, sinus pressure, facial pain, tooth pain x 12 days, SOB x 2 days. Denies any fevers or sore throat. Snot is discolored which has been going on now for the last week. Has been using Tylenol. She states that she normally does not get sick, did have a sinus infection 18 months ago. Has not been working last few days. Past medical history, appointments, medications, allergies reviewed. Previous Medical History PAST MEDICAL HISTORY Diagnosis Date - Anorexia nervosa, restricting type - Anxiety - Ascending aorta dilation (HCC) 3.5 cm - Cervical disc disease C6-7 - Esophageal reflux - Lung nodule right - Major depressive disorder, recurrent episode, mild (HCC) - PTSD (post-traumatic stress disorder) - Snoring Previous Surgical History PAST SURGICAL HISTORY Procedure Laterality Date - LAMINECTOMY,CERVICAL 03/14/12 Laminectomy, cervical, diskectomy with fusion. - LAPAROSCOPIC CHOLEYCYSTECTOMY 1996 Cholecystectomy, lap - LIGATE FALLOPIAN TUBE 2001 Tubal ligation - REPAIR UMBILICAL NICA,5+Y/O,REDUC 06/11/2007 Simple Family History FAMILY HISTORY Problem Relation Age of Onset - Hypertension Mother - Cancer Maternal Grandmother Stomach - Cancer Paternal Grandmother COPD - Alcohol/Drug Maternal Grandfather - Ischemic Heart Disease Maternal Grandfather - Hypertension Maternal Grandfather - Hypertension Brother - other (Lung cancer) Paternal Grandfather - other (pancreatic ca) Paternal Grandfather 4 MGM siblings and patient's cousins. Patient Allergies ALLERGIES No Known Allergies Current Medications Current Outpatient Prescriptions on File Prior to Visit: cholecalciferol, vitamin D3, (VITAMIN D3 ORAL) Take 1,000 mg by mouth once daily. buPROPion XL (WELLBUTRIN XL) 300 mg 24 hr tablet Take 1 tablet by mouth once daily. traZODone (DESYREL) 50 mg tablet Take 1-2 tablets by mouth daily at bedtime. Swab (NO-STING SKIN-PREP) swab 1 application once daily as needed (prior to attaching TENS unit pads). TENS unit and electrodes cmpk Use as instructed. Drospirenone-Ethinyl Estradiol 3-0.02 mg per tablet Take 1 tablet by mouth once daily. [place]-3 Fatty Acids (OMEGA 3) 550 mg ORAL Cap Take one(1) tablet daily. No current facility-administered medications on file prior to visit. 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 General Appearance: Well appearing, alert, in no acute distress, well-hydrated, well nourished.. Head: Facial tenderness. Ears: External ears normal, canals clear, left ear slightly red, no infection Oropharynx: Lips, mucosa, and tongue normal, teeth and gums normal, oropharynx normal. Neck: Supple, no adenopathy; thyroid symmetric, normal size, no bruits. Lungs: lungs clear to auscultation. No wheezing, rhonchi, rales. Heart: RRR without murmur, gallop, or rubs. No ectopy. Health Maintenance List HPV EVERY 5 YEARS due on 10/27/1997 DTAP,TDAP,TD(2 - Tdap) due on 10/13/2012 COLORECTAL CANCER SCREENING,SEE MODIFIER due on 10/27/2017 PAP EVERY 5 YEARS due on 06/27/2018 MAMMOGRAM due on 09/14/2018 LIPID SCREEN due on 02/01/2021 DIABETES SCREEN due on 04/03/2021 INFLUENZA Completed Data reviewed none ASSESSMENT/PLAN: 1. Acute non-recurrent frontal sinusitis - ICD9: 461.1, ICD10: J01.10 - Will begin treatment with Augmentin 875 mg PO BID for 10 days Follow up as needed or if sx continue or worsen. I agree with the Chief Complaint, ROS, and Past Histories independently gathered by the clinical production support specialist and the remaining scribed note accurately describes my personal service to the patient. Patric Mcbride MD The documentation for this note was completed by Rosalind Perdomo Ma acting as scribe for Patric Mcbride MD. May 05, 2018 11:22 AM. Referring Provider: SELF [[id number]] Allergies As of Date: 05/05/2018 (No Known Allergies) Date Reviewed: 05/05/2018 Reviewed by: Rosalind Perdomo Ma - Fully Assessed Reason for Visit: Sinus Infection,frequent/recurring [1167] Primary Visit Diagnosis:Acute non-recurrent frontal sinusitis [J01.10] Order(s):amoxicillin-clavulanic acid (AUGMENTIN) 875-125 mg per tabletTake 1 tablet by mouth twice daily for 10 days.Disp: 20 tabletRfl: 0 Prescriptions as of 05/05/2018 Sig: VITAMIN D3 ORAL Take 1,000 mg by mouth once d* BUPROPION XL 300 MG 24 HR TAB Take 1 tablet by mouth once d* TRAZODONE 50 MG TABLET Take 1-2 tablets by mouth [place]* SWAB 1 application once daily as n* TENS UNIT AND ELECTRODES COMB* Use as instructed. DROSPIRENONE 3 MG-ETHINYL EST* Take 1 tablet by mouth once d* * FLAXSEED OIL 1000 MG CAPSULE Take one(1) tablet daily. AMOXICILLIN 875 MG-POTASSIUM * Take 1 tablet by mouth twice * Problem List As Of Date 05/05/2018 Noted Resolved Eating disorder [F50.9] INVALID FOR* More... UMBILICAL HERNIA [K42.9] INVALID FOR* Osteopenia [M85.80] INVALID FOR* PVC's (premature ventricular contractions) [I49*INVALID FOR* Mitral prolapse [I34.1] INVALID FOR* Depression [F32.9] INVALID FOR* Cervicalgia [M54.2] INVALID FOR* PMDD (premenstrual dysphoric disorder) [F32.81] INVALID FOR* Cervical strain [S16.1XXA] INVALID FOR* DDD (degenerative disc disease), cervical [M50.*INVALID FOR* Ascending aorta dilatation (HCC) [I77.810] INVALID FOR* Eating disorder, unspecified [F50.9] Anxiety [F41.9] Major depressive disorder, recurrent episode, m* Anorexia nervosa, restricting type [F50.01] PTSD (post-traumatic stress disorder) [F43.10] Vitamin D deficiency [E55.9] INVALID FOR* Episcleritis of left eye [H15.102] INVALID FOR* Prescriptions ordered this encounter Disp Refills Start End AMOXICILLIN 875 MG-POTASSIUM CLAVULA* 20 t* 0 05/05/2018 05/15/2018 Route: ORAL Sig: Take 1 tablet by mouth twice daily for 10 days. Disposition: Return if symptoms worsen or fail to improve. Follow-up and Disposition History Recorded Encounter Status:Closed by PATRIC MCBRIDE MD on 05/05/18 PROGRESS Observed: 05/01/2018 Status: COMPLETED Source: [facility] 2:58 PM [facility] REPOSITORY HNO ID: [id number] Author: Sanchez Mccullough Service: (none) Author Type: Psychologist Type: Progress Notes Filed: 05/08/2018 2:28 PM Note Text: [facility] Progress Note Marlene Carballo 05/01/2018 [id number] Provider: Sanchez Wood PSYD CPT Code: 20293 Psychotherapy 38-52 minutes Time: Approximately 45 minutes was spent in therapy. Parties Present: Patient Patient Presentation/Concerns: Marlene was more engaged today, less shut down. She indicated being less depressed (less hopeless thoughts, better mood). She indicated that she had been sick (sounded sick) and thus was isolated for that reason. Stated that she is dreading the appointment next week to talk about medication. I sent Marlene a link about a virtual eating disorder support group. Mental Status: Mood: neutral Affect: mood-congruent Thoughts/Associations:goal directed Suicidal/Homicidal Ideation: None expressed or evidenced Other Observations: Therapy Focus Mood/affect regulation MEDICATIONS: Per medical record: Current Outpatient Prescriptions: cholecalciferol, vitamin D3, (VITAMIN D3 ORAL) Take 1,000 mg by mouth once daily. buPROPion XL (WELLBUTRIN XL) 300 mg 24 hr tablet Take 1 tablet by mouth once daily. traZODone (DESYREL) 50 mg tablet Take 1-2 tablets by mouth daily at bedtime. Swab (NO-STING SKIN-PREP) swab 1 application once daily as needed (prior to attaching TENS unit pads). TENS unit and electrodes cmpk Use as instructed. Drospirenone-Ethinyl Estradiol 3-0.02 mg per tablet Take 1 tablet by mouth once daily. [place]-3 Fatty Acids (OMEGA 3) 550 mg ORAL Cap Take one(1) tablet daily. No current facility-administered medications for this visit. Psychiatric Medication Issues: No change from previous appointment DIAGNOSIS: MO Anorexia Treatment Modality/Interventions: Cognitive Behavioral TREATMENT ASSESSMENT/PROGRESS: Deja Connell had put aside her journaling. We discussed the positive aspects that have come out of her trauma (stronger, more diligent parenting, protective etc). TREATMENT PLAN/GOALS: Continue in therapy focusing on affect management, mindful eating, coping Next appointment: 2 weeks Sanchez Wood PSYD PROGRESS Observed: 04/30/2018 Status: COMPLETED Source: [place] 7:25 PM [facility] [place] REPOSITORY HNO ID: [id number] Author: Areli Longoria Service: (none) Author Type: Physician Type: Progress Notes Filed: 04/30/2018 7:28 PM Note Text: OPERATIVE NOTATION FOR [facility] SURGICAL PROCEDURE. April 30, 2018 Marlene Carballo 1965 [id number] female PROCEDURE: EGD WITH BIOPSY - [id number] and COLONOSCOPY WITH SNARE POLYPECTOMY- 94312-308 SURGEON: Bing Longoria M.D. FACS SUBCONTRACT MANAGER: None DEPT: WQ PROVIDER: [id number] Longoria MD POS: 7X6=SDIPVDULRY DIAGNOSIS: (K29.70, K29.90) Gastritis and gastroduodenitis (primary encounter diagnosis) (D12.5) Polyp of sigmoid colon, unspecified type ASA CLASS: 3 - Severe FINDINGS: COMPLICATIONS: None PMHx - PAST MEDICAL HISTORY Diagnosis Date - Anorexia nervosa, restricting type - Anxiety - Ascending aorta dilation (HCC) 3.5 cm - Cervical disc disease C6-7 - Esophageal reflux - Lung nodule right - Major depressive disorder, recurrent episode, mild (HCC) - PTSD (post-traumatic stress disorder) - Snoring COMORBIDITIES - Psychiatric Post Op Occurrences - None Wound Classification - Clean Contaminated Operative note dictated in the [facility] dictation system. Areli Longoria MD COLON BIOPSY (CHOOSE Observed: 04/30/2018 Status: F Source: [place] SITE) 1:00 PM [facility] REPOSITORY Patient: MARLENE CARBALLO : 1965 (52/F) Acct Num: [id number] Phys: Mindi ASENCIO,Areli Unit Num: [id number] Loc: EN Specimen: [id number] Received: 04/30/18 1514 Spec Type: COLON BX TISSUES 1 TISSUES: A. Gastric mucous membrane B. Sigmoid colon biopsy COMMENT A. The results of immunohistochemistry for Helicobacter pylori will be reported separately ([id number]). GROSS DESCRIPTION A - Received in fixative is one container labeled with the patient's name and designated antral biopsy. The specimen consists of one irregular fragment of light morrison soft tissue that measures 0.3 x 0.3 x 0.1 cm. The specimen is totally submitted in one cassette. B - Received in fixative is one container labeled with the patient's name and designated sigmoid polyp. The specimen consists of two irregular fragments of morrison polypoid tissue that in aggregate measure 1 x 0.5 x 0.3 cm. The specimen is totally submitted in one cassette. / SJ:milton 05/01/18 TC:5 CPT: 61090 x2 HEADER OPERATION[place] [place] DIAGNOSIS: Family history of cancer, constipation, LLQ pain TISSUE SUBMITTED: A - Antral biopsy, B - Sigmoid polyps MICROSCOPIC DESCRIPTION Slides are reviewed. MICROSCOPIC DIAGNOSIS A. Gastric antrum, biopsy: Mild chronic gastritis. B. Sigmoid colon polyps, biopsy: Two fragments of tubular adenoma. AM:milton 05/02/18 Signed Michael Kasper DO 05/02/18 <signature on file> Performed By: #### PCOLBX #### [facility] [address] [place], [address] HISTORY AND PHYSICAL Observed: 04/30/2018 Status: F Source: [facility] EXAM 6:54 AM [facility] REPOSITORY [facility] Medical Records Department [address] [place] [address] History and Physical 04/30/18 0653 MR#: [id number] Acct: [id number] Name: MARLENE CARBALLO Rep #: [id number] : 1965 52 From: Areli Longoria MD PCP: Blanca ASENCIOPatric Status: PRE [facility] Y Location: EN History and Physical Date of Admission: 04/30/18 Marlene Carballo a 52 year old female who is a consultation requested by Dr. Mcbride for an opinion regarding LLQ pain. My final recommendations will be communicated back to the requesting physician by way of shared Medical record. The patient has not been seen previously. The patient is not aware of a family history of colon cancer. The patient was seen by on 04/10/18, leading to this consultation. That note has been reviewed and part as follows: Has been having bowel issues for several years, but has decided since she is of age for colonoscopy she would discuss these issues with provider. She has been having constipation, wont have BM for a week then she will have LLQ pain then has BM that starts out hard then is diarrhea half way through. Unsure if she has any family hx of colon cancer, cancers do run in her family. She did use Miralax in past, but that seemed to cause her to be bloated so she hasn't been taking that. Has used Fiber supplements in the past. o Component o Latest Ref Rng AND Units o 04/03/2018 o Protein, Total o 6.3 - 8.0 g/dL w 7.3 o Albumin o 3.9 - 4.9 g/dL w 4.2 o Calcium o 8.5 - 10.2 mg/dL w 9.4 Presenting complaint: The patient presents today reporting abdominal pain and altered bowel habits off and on for years. Really bad when her daughter was born 17 yrs ago. She can't recall and issues when in teens or early twenties. The patient tells me that she will have bright red blood with constipation - anal tears. The patient isn't aware of any colon cancer in her family. Mother had stomach cancer. . REVIEW OF SYSTEMS: GENERAL: No unplanned weight loss. RESPIRATORY: Negative for cough, hemoptysis, wheezing, COPD, dyspnea or shortness of breath CARDIOVASCULAR: Notes occasional palpitations - has had the work up. GI: The patient states that her appetite has been adequate. There has been no nausea, no vomiting. She denies dysphagia and denies odynophagia. There has not been indigestion or heartburn. There has not been positional regurgitation. Bowel habits have been irregular. There has been diarrhea. There has been constipation. The patient admits to rectal bleeding. There has not been melena. Intermittent abdominal pain that is located in the left lower quadrant. FRONT OFFICE ATTENDANT: Negative for abnormal vaginal bleeding, abnormal vaginal discharge. LMP: medication induced amenorrhagia. PSYCH: Sees Dr. Mccullough. HEMATOLOGY/LYMPHOLOGY Negative for prolonged bleeding, bruising easily or swollen nodes ENDOCRINE: No thyroid or diabetes. NEURO: No history of headaches, syncope, paralysis, seizures or tremors All other reviewed and negative other than HPI. w PAST MEDICAL HISTORY w PAST SURGICAL HISTORY w PAST SURGICAL HISTORY Procedure Laterality Date LAMINECTOMY,CERVICAL 03/14/12 Gian ctomy, cervical, diskectomy with fusion. LAPAROSCOPIC CHOLEYCYSTECTOMY 1996 Cholecystec Iveth castillo FALLOPIAN TUBE 2002 Tubal ligation REPAIR UMBILICAL NICA,5+Y/O,REDUC 06/11/2007 Simple w FAMILY HISTORY w FAMILY HISTORY Problem Relation Age of Onset Hypertension Mother Cancer Maternal Gra ndmother Stomach Cancer Paternal Grandmother COPD Alcohol/Drug Maternal Grandfather Ischemic Heart Disease Maternal Grandfather Hypertension Maternal Grandf ather Hypertension Brother other (Lung cancer) Paternal Grandfather other (pancr eatic ca) PaternalGrandfather 4 MGM siblings and patient's cousins. w CURRENT MEDICATIONS SOCIAL HISTORY: Patient is . She has never smoked. She reports her alcohol use as occasionally having a glass of wine. She denies recreational drug use. PHYSICAL EXAMINATION: Blood pressure 123/80, pulse 93, height 162.6 cm (5' 4), weight 57.8 kg (127 lb 6.4 oz). General Appearance: Well appearing, alert, in no acute distress, well-hydrated, well nourished. Skin: Skin color, texture, turgor normal, no suspicious rashes or lesions. Head: Normocephalic, no masses, lesions, or abnormalities. Eyes: Anicteric sclera. Oropharynx: Lips, mucosa, and tongue normal, teeth and gums normal, oropharynx normal. Neck: Supple, no adenopathy. Lungs: lungs clear to auscultation. Heart: RRR without murmur. Abdomen: Abdomen soft. Slight tenderness to palpation LLQ, non-tender otherwise. Bowel sounds normal. No masses, organomegaly. Extremities: No deformities or edema. Peripheral Pulses: Normal. Neurologic: Gait normal. Sensation grossly intact. Impression: Family history of stomach cancer 2)colorectal cancer screening 3)intermittent LLQ pain Plan: The patient will be scheduled for an upper endoscopy and colonoscopy. She will require MAC due to anxiety. Preparation for the procedures, using GoLytely as the laxative, have been explained in detail. The risks, benefits, anticipated outcomes and possible complications were mentioned. I explained the procedure in understandable terms and the patient was given printed material concerning the planned procedure. The patient had the opportunity to ask questions concerning the planned procedure. The patient freely consents to the planned procedure. The patient is encouraged to call with any questions or concerns, or should there be any change in health status between now and the scheduled procedure. I have personally interviewed and examined this patient. I have read the information that the REFERRAL RN documented in this encounter. I spent 30 minutes in the visit, with more than 50% of the total [id number] time of the visit in counseling / coordination of care. Dallas Arriaga RN APRN.[facility] 04/30/18 [id number] <Electronically signed by Areli Longoria MD> Date Areli Longoria MD Cosigner Signature: Date (if applicable) CC: Patric Mcbride MD; Areli Longoria MD Signed IMMUNOHISTOCHEMISTRY Observed: 04/30/2018 Status: F Source: [place] 12:00 AM [facility] REPOSITORY Patient: MARLENE CARBALLO : 1965 (52/F) Acct Num: [id number] Phys: Mindi ASENCIO,Areli Unit Num: [id number] Loc: EN Specimen: [id number] Received: 05/02/18 - 1103 Spec Type: IMMUNO TISSUES 1 TISSUES: A. Stomach, NOS SPECIMEN INFORMATION: Tissue Source: A - Antral biopsy Clinical Info: Constipation, LLQ pain, family history of cancer Specimen Number: [id number] CPT code: 32714 METHODOLOGY: Deparaffinized sections of prefer/formalin-fixed tissue or PAP/DQ stained slides are incubated with monoclonal/polyclonal antibodies/oligonucleotide probes. Localization is made via biotin free immunoperoxidase method. Appropriate controls are performed and reacted as expected. Results on target cell population are indicated in the following table: RESULTS: ANTIBODY / CLONE RESULT Block A H Pylori (polyclonal) negative These tests were developed and their performance characteristics determined by [facility]. They may not have been cleared or approved by the U.S. Food and Drug Administration. The FDA has determined that such clearance or approval is not necessary. INTERPRETATION: A. Antral biopsy: Negative for Helicobacter pylori. AM:giulia 05/05/18 PHYSICIAN AND INSTITUTION [place] [id number] Signed Michael Kasper DO 05/05/18 <signature on file> Performed By: #### PIMM #### [facility] [address] [place] [address]. [place], [place], [address] CNOP Observed: 04/30/2018 Status: COMPLETED Source: [place] 12:00 AM [facility] REPOSITORY Operative Note (Enc) (GENSWS) Progress Notes: Areli Longoria MD 04/30/2018 7:28 PM Signed OPERATIVE NOTATION FOR [facility] SURGICAL PROCEDURE. April 30, 2018 Marlene Carballo 1965 [id number] female PROCEDURE: EGD WITH BIOPSY - [id number] and COLONOSCOPY WITH SNARE POLYPECTOMY- 96155-607 SURGEON: Bing Longoria M.D. FACS SUBCONTRACT MANAGER: None DEPT: WQ PROVIDER: [id number] Longoria MD POS: [id number]=[id number] DIAGNOSIS: (K29.70, K29.90) Gastritis and gastroduodenitis (primary encounter diagnosis) (D12.5) Polyp of sigmoid colon, unspecified type ASA CLASS: 3 - Severe FINDINGS: COMPLICATIONS: None PMHx - PAST MEDICAL HISTORY Diagnosis Date - Anorexia nervosa, restricting type - Anxiety - Ascending aorta dilation (HCC) 3.5 cm - Cervical disc disease C6-7 - Esophageal reflux - Lung nodule right - Major depressive disorder, recurrent episode, mild (HCC) - PTSD (post-traumatic stress disorder) - Snoring COMORBIDITIES - Psychiatric Post Op Occurrences - None Wound Classification - Clean Contaminated Operative note dictated in the [facility] dictation system. Areli Longoria MD Encounter Status:Closed by ARELI LONGORIA MD on 04/30/18 PROGRESS Observed: 04/23/2018 Status: COMPLETED Source: [place] 6:36 PM [facility] REPOSITORY HNO ID: [id number] Author: Sanchez Mccullough Service: (none) Author Type: Psychologist Type: Progress Notes Filed: 04/29/2018 3:15 PM Note Text: [facility] Progress Note Marlene Carballo 04/23/2018 [id number] Provider: Sanchez Wood PSYD CPT Code: 69023 Psychotherapy 38-52 minutes Time: Approximately 45 minutes was spent in therapy. Parties Present: Patient Patient Presentation/Concerns: Marlene indicated having good and bad days over the holidays. Overall, she presented as very depressed (depressive thinking, hopeless (why bother), shutting down, isolating). She denied any suicidal thoughts or plans. The depression level has not seemed to improve. We spoke about possible shift in medication. Also, discussed eating routinely and no isolating. Discussed ways of connecting. Mental Status: Mood: depressed Affect: mood-congruent Thoughts/Associations:goal directed Suicidal/Homicidal Ideation: None expressed or evidenced Other Observations: Therapy Focus Self-care, Stress management and Mood/affect regulation MEDICATIONS: Per medical record: Current Outpatient Prescriptions: cholecalciferol, vitamin D3, (VITAMIN D3 ORAL) Take 1,000 mg by mouth once daily. buPROPion XL (WELLBUTRIN XL) 300 mg 24 hr tablet Take 1 tablet by mouth once daily. traZODone (DESYREL) 50 mg tablet Take 1-2 tablets by mouth daily at bedtime. Swab (NO-STING SKIN-PREP) swab 1 application once daily as needed (prior to attaching TENS unit pads). TENS unit and electrodes cmpk Use as instructed. Drospirenone-Ethinyl Estradiol 3-0.02 mg per tablet Take 1 tablet by mouth once daily. [place]-3 Fatty Acids (OMEGA 3) 550 mg ORAL Cap Take one(1) tablet daily. No current facility-administered medications for this visit. Psychiatric Medication Issues: No change from previous appointment DIAGNOSIS: MO PTSD Anorexia Treatment Modality/Interventions: Cognitive Behavioral TREATMENT ASSESSMENT/PROGRESS: Stable. She denied any suicidal thoughts or actions or plans. Very shut down during the session. Long pauses as if thinking. TREATMENT PLAN/GOALS: Continue in therapy focusing on affect management. I urged her to keep me posted of any changes or worsening of symptoms. Next appointment: 2 weeks Sanchez Wood PSYD HISTORY PHYSICAL Observed: 04/14/2018 Status: COMPLETED Source: [place] 2:00 PM [facility] REPOSITORY [facility] ID: [id number] Author: Dallas Arriaga Service: (none) Author Type: Nurse Practitioner Type: HANDP Filed: 04/14/2018 3:43 PM Note Text: Marlene Carballo a 52 year old female who is a consultation requested by Dr. Mcbride for an opinion regarding LLQ pain. My final recommendations will be communicated back to the requesting physician by way of shared Medical record. The patient has not been seen previously. The patient is not aware of a family history of colon cancer. The patient was seen by on 04/10/18, leading to this consultation. That note has been reviewed and part as follows: Has been having bowel issues for several years, but has decided since she is of age for colonoscopy she would discuss these issues with provider. She has been having constipation, wont have BM for a week then she will have LLQ pain then has BM that starts out hard then is diarrhea half way through. Unsure if she has any family hx of colon cancer, cancers do run in her family. She did use Miralax in past, but that seemed to cause her to be bloated so she hasn't been taking that. Has used Fiber supplements in the past. Component Latest Ref Rng AND Units 04/03/2018 Protein, Total 6.3 - 8.0 g/dL 7.3 Albumin 3.9 - 4.9 g/dL 4.2 Calcium 8.5 - 10.2 mg/dL 9.4 Bilirubin, Total 0.2 - 1.3 mg/dL 0.3 Alkaline Phosphatase 34 - 123 U/L 35 AST 13 - 35 U/L 20 Glucose 74 - 99 mg/dL 85 BUN 7 - 21 mg/dL 12 Creatinine 0.58 - 0.96 mg/dL 0.87 Sodium 136 - 144 mmol/L 137 Potassium 3.7 - 5.1 mmol/L 4.3 Chloride 97 - 105 mmol/L 100 CO2 22 - 30 mmol/L 24 Anion Gap 9 - 18 mmol/L 13 ALT 7 - 38 U/L 10 eGFR- >60 eGFR-All Other Races . >60 Phosphorus 2.7 - 4.8 mg/dL 3.1 Magnesium 1.7 - 2.3 mg/dL 2.0 Presenting complaint: The patient presents today reporting abdominal pain and altered bowel habits off and on for years. Really bad when her daughter was born 17 yrs ago. She can't recall and issues when in teens or early twenties. The patient tells me that she will have bright red blood with constipation - anal tears. The patient isn't aware of any colon cancer in her family. Mother had stomach cancer. . REVIEW OF SYSTEMS: GENERAL: No unplanned weight loss. RESPIRATORY: Negative for cough, hemoptysis, wheezing, COPD, dyspnea or shortness of breath CARDIOVASCULAR: Notes occasional palpitations - has had the work up. GI: The patient states that her appetite has been adequate. There has been no nausea, no vomiting. She denies dysphagia and denies odynophagia. There has not been indigestion or heartburn. There has not been positional regurgitation. Bowel habits have been irregular. There has been diarrhea. There has been constipation. The patient admits to rectal bleeding. There has not been melena. Intermittent abdominal pain that is located in the left lower quadrant. FRONT OFFICE ATTENDANT: Negative for abnormal vaginal bleeding, abnormal vaginal discharge. LMP: medication induced amenorrhagia. PSYCH: Sees Dr. Bowling. HEMATOLOGY/LYMPHOLOGY Negative for prolonged bleeding, bruising easily or swollen nodes ENDOCRINE: No thyroid or diabetes. NEURO: No history of headaches, syncope, paralysis, seizures or tremors All other reviewed and negative other than HPI. PAST MEDICAL HISTORY Diagnosis Date - Anorexia nervosa, restricting type - Anxiety - Ascending aorta dilation (HCC) 3.5 cm - Cervical disc disease C6-7 - Eating disorder, unspecified - Esophageal reflux - Lung nodule right - Major depressive disorder, recurrent episode, mild (HCC) - PTSD (post-traumatic stress disorder) - Snoring PAST SURGICAL HISTORY Procedure Laterality Date - LAMINECTOMY,CERVICAL 03/14/12 Laminectomy, cervical, diskectomy with fusion. - LAPAROSCOPIC CHOLEYCYSTECTOMY 1996 Cholecystectomy, lap - LIGATE FALLOPIAN TUBE 2001 Tubal ligation - REPAIR UMBILICAL NICA,5+Y/O,REDUC 06/11/2007 Simple FAMILY HISTORY Problem Relation Age of Onset - Hypertension Mother - Cancer Maternal Grandmother Stomach - Cancer Paternal Grandmother COPD - Alcohol/Drug Maternal Grandfather - Ischemic Heart Disease Maternal Grandfather - Hypertension Maternal Grandfather - Hypertension Brother - other (Lung cancer) Paternal Grandfather - other (pancreatic ca) Paternal Grandfather 4 MGM siblings and patient's cousins. Current Outpatient Prescriptions: buPROPion XL (WELLBUTRIN XL) 300 mg 24 hr tablet Take 1 tablet by mouth once daily. Disp: 30 tablet Rfl: 6 cholecalciferol, vitamin D3, (VITAMIN D3 ORAL) Take 1,000 mg by mouth once daily. Disp: Rfl: Drospirenone-Ethinyl Estradiol 3-0.02 mg per tablet Take 1 tablet by mouth once daily. Disp: Rfl: 0 [place]-3 Fatty Acids (OMEGA 3) 550 mg ORAL Cap Take one(1) tablet daily. Disp: Rfl: 0 Swab (NO-STING SKIN-PREP) swab 1 application once daily as needed (prior to attaching TENS unit pads). Disp: 50 Each Rfl: 1 TENS unit and electrodes cmpk Use as instructed. Disp: 1 Device Rfl: 0 traZODone (DESYREL) 50 mg tablet Take 1-2 tablets by mouth daily at bedtime. Disp: 60 tablet Rfl: 6 No current facility-administered medications for this visit. SOCIAL HISTORY: Patient is . She has never smoked. She reports her alcohol use as occasionally having a glass of wine. She denies recreational drug use. PHYSICAL EXAMINATION: Blood pressure 123/80, pulse 93, height 162.6 cm (5' 4), weight 57.8 kg (127 lb 6.4 oz). General Appearance: Well appearing, alert, in no acute distress, well-hydrated, well nourished. Skin: Skin color, texture, turgor normal, no suspicious rashes or lesions. Head: Normocephalic, no masses, lesions, or abnormalities. Eyes: Anicteric sclera. Oropharynx: Lips, mucosa, and tongue normal, teeth and gums normal, oropharynx normal. Neck: Supple, no adenopathy. Lungs: lungs clear to auscultation. Heart: RRR without murmur. Abdomen: Abdomen soft. Slight tenderness to palpation LLQ, non-tender otherwise. Bowel sounds normal. No masses, organomegaly. Extremities: No deformities or edema. Peripheral Pulses: Normal. Neurologic: Gait normal. Sensation grossly intact. Impression: Family history of stomach cancer 2)colorectal cancer screening 3)intermittent LLQ pain Plan: The patient will be scheduled for an upper endoscopy and colonoscopy. She will require MAC due to anxiety. Preparation for the procedures, using GoLytely as the laxative, have been explained in detail. The risks, benefits, anticipated outcomes and possible complications were mentioned. I explained the procedure in understandable terms and the patient was given printed material concerning the planned procedure. The patient had the opportunity to ask questions concerning the planned procedure. The patient freely consents to the planned procedure. The patient is encouraged to call with any questions or concerns, or should there be any change in health status between now and the scheduled procedure. I have personally interviewed and examined this patient. I have read the information that the REFERRAL RN documented in this encounter. I spent 30 minutes in the visit, with more than 50% of the total zilp-xi-zzcv time of the visit in counseling / coordination of care. Dallas Arriaga RN APRN.[facility] Observed: 04/14/2018 Status: COMPLETED Source: [place] 2:00 PM [facility] REPOSITORY [facility] MARLENE CARBALLO ([id number]) 1965 F Date Time Provider Department 04/14/18 2:00 PM DALLAS ARRIAGA (ALANNAH) [facility] During your visit today, we recorded the following information about you: Pulse Blood pressure Weight Height 93/minute 123/80 57.8 kg 1.626 m Dallas Arriaga RN SURVEY AND MAPPING TECHNICIAN.LUMP MACHINE OPERATOR 04/14/2018 3:43 PM Signed Marlene Carballo a 52 year old female who is a consultation requested by Dr. Mcbride for an opinion regarding LLQ pain. My final recommendations will be communicated back to the requesting physician by way of shared Medical record. The patient has not been seen previously. The patient is not aware of a family history of colon cancer. The patient was seen by on 04/10/18, leading to this consultation. That note has been reviewed and part as follows: Has been having bowel issues for several years, but has decided since she is of age for colonoscopy she would discuss these issues with provider. She has been having constipation, wont have BM for a week then she will have LLQ pain then has BM that starts out hard then is diarrhea half way through. Unsure if she has any family hx of colon cancer, cancers do run in her family. She did use Miralax in past, but that seemed to cause her to be bloated so she hasn't been taking that. Has used Fiber supplements in the past. Component Latest Ref Rng AND Units 04/03/2018 Protein, Total 6.3 - 8.0 g/dL 7.3 Albumin 3.9 - 4.9 g/dL 4.2 Calcium 8.5 - 10.2 mg/dL 9.4 Bilirubin, Total 0.2 - 1.3 mg/dL 0.3 Alkaline Phosphatase 34 - 123 U/L 35 AST 13 - 35 U/L 20 Glucose 74 - 99 mg/dL 85 BUN 7 - 21 mg/dL 12 Creatinine 0.58 - 0.96 mg/dL 0.87 Sodium 136 - 144 mmol/L 137 Potassium 3.7 - 5.1 mmol/L 4.3 Chloride 97 - 105 mmol/L 100 CO2 22 - 30 mmol/L 24 Anion Gap 9 - 18 mmol/L 13 ALT 7 - 38 U/L 10 eGFR- >60 eGFR-All Other Races . >60 Phosphorus 2.7 - 4.8 mg/dL 3.1 Magnesium 1.7 - 2.3 mg/dL 2.0 Presenting complaint: The patient presents today reporting abdominal pain and altered bowel habits off and on for years. Really bad when her daughter was born 17 yrs ago. She can't recall and issues when in teens or early twenties. The patient tells me that she will have bright red blood with constipation - anal tears. The patient isn't aware of any colon cancer in her family. Mother had stomach cancer. . REVIEW OF SYSTEMS: GENERAL: No unplanned weight loss. RESPIRATORY: Negative for cough, hemoptysis, wheezing, COPD, dyspnea or shortness of breath CARDIOVASCULAR: Notes occasional palpitations - has had the work up. GI: The patient states that her appetite has been adequate. There has been no nausea, no vomiting. She denies dysphagia and denies odynophagia. There has not been indigestion or heartburn. There has not been positional regurgitation. Bowel habits have been irregular. There has been diarrhea. There has been constipation. The patient admits to rectal bleeding. There has not been melena. Intermittent abdominal pain that is located in the left lower quadrant. FRONT OFFICE ATTENDANT: Negative for abnormal vaginal bleeding, abnormal vaginal discharge. LMP: medication induced amenorrhagia. PSYCH: Sees Dr. Mccullough. HEMATOLOGY/LYMPHOLOGY Negative for prolonged bleeding, bruising easily or swollen nodes ENDOCRINE: No thyroid or diabetes. NEURO: No history of headaches, syncope, paralysis, seizures or tremors All other reviewed and negative other than HPI. PAST MEDICAL HISTORY Diagnosis Date - Anorexia nervosa, restricting type - Anxiety - Ascending aorta dilation (HCC) 3.5 cm - Cervical disc disease C6-7 - Eating disorder, unspecified - Esophageal reflux - Lung nodule right - Major depressive disorder, recurrent episode, mild (HCC) - PTSD (post-traumatic stress disorder) - Snoring PAST SURGICAL HISTORY Procedure Laterality Date - LAMINECTOMY,CERVICAL 03/14/12 Laminectomy, cervical, diskectomy with fusion. - LAPAROSCOPIC CHOLEYCYSTECTOMY 1996 Cholecystectomy, lap - LIGATE FALLOPIAN TUBE 2001 Tubal ligation - REPAIR UMBILICAL NICA,5+Y/O,REDUC 06/11/2007 Simple FAMILY HISTORY Problem Relation Age of Onset - Hypertension Mother - Cancer Maternal Grandmother Stomach - Cancer Paternal Grandmother COPD - Alcohol/Drug Maternal Grandfather - Ischemic Heart Disease Maternal Grandfather - Hypertension Maternal Grandfather - Hypertension Brother - other (Lung cancer) Paternal Grandfather - other (pancreatic ca) Paternal Grandfather 4 MGM siblings and patient's cousins. Current Outpatient Prescriptions: buPROPion XL (WELLBUTRIN XL) 300 mg 24 hr tablet Take 1 tablet by mouth once daily. Disp: 30 tablet Rfl: 6 cholecalciferol, vitamin D3, (VITAMIN D3 ORAL) Take 1,000 mg by mouth once daily. Disp: Rfl: Drospirenone-Ethinyl Estradiol 3-0.02 mg per tablet Take 1 tablet by mouth once daily. Disp: Rfl: 0 [place]-3 Fatty Acids (OMEGA 3) 550 mg ORAL Cap Take one(1) tablet daily. Disp: Rfl: 0 Swab (NO-STING SKIN-PREP) swab 1 application once daily as needed (prior to attaching TENS unit pads). Disp: 50 Each Rfl: 1 TENS unit and electrodes cmpk Use as instructed. Disp: 1 Device Rfl: 0 traZODone (DESYREL) 50 mg tablet Take 1-2 tablets by mouth daily at bedtime. Disp: 60 tablet Rfl: 6 No current facility-administered medications for this visit. SOCIAL HISTORY: Patient is . She has never smoked. She reports her alcohol use as occasionally having a glass of wine. She denies recreational drug use. PHYSICAL EXAMINATION: Blood pressure 123/80, pulse 93, height 162.6 cm (5' 4), weight 57.8 kg (127 lb 6.4 oz). General Appearance: Well appearing, alert, in no acute distress, well-hydrated, well nourished. Skin: Skin color, texture, turgor normal, no suspicious rashes or lesions. Head: Normocephalic, no masses, lesions, or abnormalities. Eyes: Anicteric sclera. Oropharynx: Lips, mucosa, and tongue normal, teeth and gums normal, oropharynx normal. Neck: Supple, no adenopathy. Lungs: lungs clear to auscultation. Heart: RRR without murmur. Abdomen: Abdomen soft. Slight tenderness to palpation LLQ, non-tender otherwise. Bowel sounds normal. No masses, organomegaly. Extremities: No deformities or edema. Peripheral Pulses: Normal. Neurologic: Gait normal. Sensation grossly intact. Impression: Family history of stomach cancer 2)colorectal cancer screening 3)intermittent LLQ pain Plan: The patient will be scheduled for an upper endoscopy and colonoscopy. She will require MAC due to anxiety. Preparation for the procedures, using GoLytely as the laxative, have been explained in detail. The risks, benefits, anticipated outcomes and possible complications were mentioned. I explained the procedure in understandable terms and the patient was given printed material concerning the planned procedure. The patient had the opportunity to ask questions concerning the planned procedure. The patient freely consents to the planned procedure. The patient is encouraged to call with any questions or concerns, or should there be any change in health status between now and the scheduled procedure. I have personally interviewed and examined this patient. I have read the information that the REFERRAL RN documented in this encounter. I spent 30 minutes in the visit, with more than 50% of the total exsw-ai-zdcv time of the visit in counseling / coordination of care. Dallas Arriaga RN APRN.JULY Arriaga RN APRN.LUMP MACHINE OPERATOR 04/14/2018 2:38 PM Signed Please follow the provided instructions for upper endoscopy and colonoscopy. You will be using GoLytely as the laxative during the preparation. You may start the laxative as early as 1:00 in the afternoon. You will have the deeper sedation we call MAC. Please call the surgical scheduler, at the number provided, to schedule your procedure. The endoscopy staff will call you the day before the procedure with specific on arrival time. (Saturday for Saturday procedures). Referring Provider: PATRIC MCBRIDE [[id number]] Allergies As of Date: 04/14/2018 (No Known Allergies) Date Reviewed: 04/14/2018 Reviewed by: Lavinia Solis LPN - Fully Assessed Reason for Visit: LLQ PAIN, DIARRHEA,CONSTIPAITON [Other] Primary Visit Diagnosis:Functional dyspepsia [K30] Other Visit Diagnoses:LLQ pain [R10.32] Functional bowel disorder [K59.9] Encounter for screening for malignant neoplasm of colon [Z12.11] Family history of stomach cancer [Z80.0] Order(s):LIPASE BLD [SQLIPA] Order #: [id number] FUTURE AMYLASE BLD [SQAMYL] Order #: [id number] FUTURE COLONOSCOPY GEN ANES [7381654] Order #: [id number] FUTURE EGD GEN ANES [7309176] Order #: [id number] FUTURE peg 3350-electrolytes (COLYTE) 240-22.72-6.72 -5.84 gram solutionTake 4,000 mL by mouth one time only for 1 dose.Disp: 1 BottleRfl: 0 Prescriptions as of 04/14/2018 Sig: BUPROPION XL 300 MG 24 HR TAB Take 1 tablet by mouth once d* VITAMIN D3 ORAL Take 1,000 mg by mouth once d* DROSPIRENONE 3 MG-ETHINYL EST* Take 1 tablet by mouth once d* * FLAXSEED OIL 1000 MG CAPSULE Take one(1) tablet daily. SWAB 1 application once daily as n* TENS UNIT AND ELECTRODES COMB* Use as instructed. TRAZODONE 50 MG TABLET Take 1-2 tablets by mouth delores* PEG 3350 240 GRAM-ELECTROLYTE* Take 4,000 mL by mouth one ti* Problem List As Of Date 04/14/2018 Noted Resolved Eating disorder [F50.9] INVALID FOR* More... UMBILICAL HERNIA [K42.9] INVALID FOR* Osteopenia [M85.80] INVALID FOR* PVC's (premature ventricular contractions) [I49*INVALID FOR* Mitral prolapse [I34.1] INVALID FOR* Depression [F32.9] INVALID FOR* Cervicalgia [M54.2] INVALID FOR* PMDD (premenstrual dysphoric disorder) [F32.81] INVALID FOR* Cervical strain [S16.1XXA] INVALID FOR* DDD (degenerative disc disease), cervical [M50.*INVALID FOR* Ascending aorta dilatation (HCC) [I77.810] INVALID FOR* Eating disorder, unspecified [F50.9] Anxiety [F41.9] Major depressive disorder, recurrent episode, m* Anorexia nervosa, restricting type [F50.01] PTSD (post-traumatic stress disorder) [F43.10] Vitamin D deficiency [E55.9] INVALID FOR* Episcleritis of left eye [H15.102] INVALID FOR* Other instructions from your clinician: Please follow the provided instructions for upper endoscopy and colonoscopy. You will be using GoLytely as the laxative during the preparation. You may start the laxative as early as 1:00 in the afternoon. You will have the deeper sedation we call MAC. Please call the surgical scheduler, at the number provided, to schedule your procedure. The endoscopy staff will call you the day before the procedure with specific on arrival time. (Saturday for Saturday procedures). Prescriptions ordered this encounter Disp Refills Start End PEG 3350 240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 Progress Note Marlene Carbalol 03/14/2018 [id number] Provider: Sanchez Wood PSYD CPT Code: 44800 Psychotherapy 38-52 minutes Time: Approximately 445 minutes was spent in therapy. Parties Present: self Patient Presentation/Concerns: Marlene discussed again wanting to quit the trauma therapy. She is emotionally wrestling with whether to continue or quit. It has brought up thoughts of self harm, which she denies acting on. Also reports depression Mental Status: Mood: depressed Affect: mood-congruent and blunted Thoughts/Associations:ruminiatve depressive Suicidal/Homicidal Ideation: None expressed or evidenced Other Observations: None Therapy Focus Mood/affect regulation MEDICATIONS: Per medical record: Current Outpatient Prescriptions: cholecalciferol, vitamin D3, (VITAMIN D3 ORAL) Take 1,000 mg by mouth once daily. buPROPion XL (WELLBUTRIN XL) 300 mg 24 hr tablet Take 1 tablet by mouth once daily. traZODone (DESYREL) 50 mg tablet Take 1-2 tablets by mouth daily at bedtime. Swab (NO-STING SKIN-PREP) swab 1 application once daily as needed (prior to attaching TENS unit pads). TENS unit and electrodes cmpk Use as instructed. Drospirenone-Ethinyl Estradiol 3-0.02 mg per tablet Take 1 tablet by mouth once daily. [place]-3 Fatty Acids (OMEGA 3) 550 mg ORAL Cap Take one(1) tablet daily. No current facility-administered medications for this visit. Psychiatric Medication Issues: No change from previous appointment DIAGNOSIS: MO Anorexia Treatment Modality/Interventions: Cognitive Behavioral TREATMENT ASSESSMENT/PROGRESS: Stable The trauma issues have triggered desire to restrict and depression, she stated TREATMENT PLAN/GOALS: Continue in therapy focusing on affect management, she denied any suicidal thoughts Continue to discuss best options for moving forward Call immediately if she is experiencing self harm thoughts/actions Next appointment: 2 weeks Sanchez Wood PSYD PROGRESS Observed: 02/20/2018 Status: COMPLETED Source: [place] 2:28 PM [facility] REPOSITORY HNO ID: [id number] Author: Sanchez Mccullough Service: (none) Author Type: Psychologist Type: Progress Notes Filed: 03/14/2018 9:23 AM Note Text: [facility] Progress Note Marlene Carballo 02/20/2018 [id number] Provider: Sanchez Wood PSYD CPT Code: 64217 Psychotherapy 38-52 minutes Time: Approximately 45 minutes was spent in therapy. Patient Concerns: Marlene indicated being depressed and overwhelmed by the new trauma therapy at [facility]. Delroy's session led to self harm of hitting herself and taking a muscle relaxant (1). Discussed how she is feeling and the need to contact Ria as soon as possible. She was shut down during the session. She denied any thoughts of suicide. Stated wanting to numb out the feelings with restriction of food. She reports continuing to eat because she has to. Discussed healthy coping mechanisms. I also suggested returning to an Eating Disorder IOP program. Mental Status: Mood: neutral Affect: mood-congruent Thoughts/Associations:goal directed Suicidal/Homicidal Ideation: None expressed or evidenced Other Observations: Therapy Focus CBT MEDICATIONS: Per medical record: Current Outpatient Prescriptions: cholecalciferol, vitamin D3, (VITAMIN D3 ORAL) Take 1,000 mg by mouth once daily. buPROPion XL (WELLBUTRIN XL) 300 mg 24 hr tablet Take 1 tablet by mouth once daily. traZODone (DESYREL) 50 mg tablet Take 1-2 tablets by mouth daily at bedtime. Swab (NO-STING SKIN-PREP) swab 1 application once daily as needed (prior to attaching TENS unit pads). TENS unit and electrodes cmpk Use as instructed. Drospirenone-Ethinyl Estradiol 3-0.02 mg per tablet Take 1 tablet by mouth once daily. [place]-3 Fatty Acids (OMEGA 3) 550 mg ORAL Cap Take one(1) tablet daily. No current facility-administered medications for this visit. Psychiatric Medication Issues: No change from previous appointment DIAGNOSIS: MO PTSD Anorexia Treatment Modality/Interventions: Cognitive Behavioral TREATMENT ASSESSMENT/PROGRESS: Trauma triggers, self harm. She will be spending time with her sister in law this weekend. Encouraged her to call if needed. Discussed safety plan (if feeling suicidal call 911, go to ER). TREATMENT PLAN/GOALS: Continue in therapy focusing on stress management and affect management. I encouraged her to call Ria and talk to her. I have left her a message to return my call. Next appointment: 1 week Sanchez Wood PSYD PROGRESS Observed: 02/13/2018 Status: COMPLETED Source: [place] 1:05 PM [facility] REPOSITORY HNO ID: [id number] Author: Sanchez Mccullough Service: (none) Author Type: Psychologist Type: Progress Notes Filed: 02/18/2018 3:44 PM Note Text: [facility] Progress Note Marlene Carballo 02/13/2018 [id number] Provider: Sanchez Wood PSYD CPT Code: 55741 Psychotherapy 38-52 minutes Time: Approximately 45 minutes was spent in therapy. Parties Present: Patient Patient Presentation/Concerns: Marlene indicated that she is struggling with the new therapy. It has prompted her to feel depressed, wanting to be alone, urges (denies any action) of self harm, increase in eating disorder behaviors. We discussed coping behaviors-calling her support system, staying connected, distraction, positive self talk etc. I indicated that she can stop the trauma therapy at [place] at any time if she feels too overwhelmed or can't do it. She stated she wants to continue. She denies any suicidal feelings/thoughts. Mental Status: Mood: neutral Affect: mood-congruent Thoughts/Associations:goal directed Suicidal/Homicidal Ideation: None expressed or evidenced Other Observations: None Therapy Focus Mood/affect regulation MEDICATIONS: Per medical record: Current Outpatient Prescriptions: cholecalciferol, vitamin D3, (VITAMIN D3 ORAL) Take 1,000 mg by mouth once daily. buPROPion XL (WELLBUTRIN XL) 300 mg 24 hr tablet Take 1 tablet by mouth once daily. traZODone (DESYREL) 50 mg tablet Take 1-2 tablets by mouth daily at bedtime. Swab (NO-STING SKIN-PREP) swab 1 application once daily as needed (prior to attaching TENS unit pads). TENS unit and electrodes cmpk Use as instructed. Drospirenone-Ethinyl Estradiol 3-0.02 mg per tablet Take 1 tablet by mouth once daily. [place]-3 Fatty Acids (OMEGA 3) 550 mg ORAL Cap Take one(1) tablet daily. No current facility-administered medications for this visit. Psychiatric Medication Issues: No change from previous appointment DIAGNOSIS: MO Anorexia PTSD Treatment Modality/Interventions: Cognitive Behavioral TREATMENT ASSESSMENT/PRPGRESS Jaber, difficult for her to put things into words. Her weight is the same per doctors apt yesterday TREATMENT PLAN/GOALS: Continue in therapy focusing on affect management. Next appointment: 2 weeks Sanchez Wood PSYD PROGRESS Observed: 02/10/2018 Status: COMPLETED Source: [place] 9:57 AM [facility] [place] REPOSITORY O ID: [id number] Author: Radha Chahal (Alannah) Jax Service: (none) Author Type: Nurse Practitioner Type: Progress Notes Filed: 02/10/2018 10:18 AM Note Text: Chief Complaint Patient presents with: Recheck: 2 month HPI Marlene Carballo is a 52 year old female who presents here today for Routine 2 month follow up Anorexia, eating disorder. Continues to follow with Dr. Mccullough (Psychology)for counseling, and Psychiatry-recently added Trazodone for sleep with improvement. 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 Stressful job, learning as she goes. States overall feels she is doing well. States she is drinking Ensure to make sure she gets her protein in. Weight stable. Denies any light headedness or syncope. Last 3 Encounter Wt Readings: Date: Wt: 02/10/2018 58.1 kg (128 lb) 12/09/2017 58.2 kg (128 lb 6.4 oz) 10/07/2017 59 kg (130 lb) The ROS is otherwise negative. Past medical history, appointments, medications, allergies reviewed. Patient Allergies ALLERGIES No Known Allergies Current Medications Current Outpatient Prescriptions on File Prior to Visit: buPROPion XL (WELLBUTRIN XL) 300 mg 24 hr tablet Take 1 tablet by mouth once daily. traZODone (DESYREL) 50 mg tablet Take 1-2 tablets by mouth daily at bedtime. Swab (NO-STING SKIN-PREP) swab 1 application once daily as needed (prior to attaching TENS unit pads). TENS unit and electrodes cmpk Use as instructed. Drospirenone-Ethinyl Estradiol 3-0.02 mg per tablet Take 1 tablet by mouth once daily. [place]-3 Fatty Acids (OMEGA 3) 550 mg ORAL Cap Take one(1) tablet daily. No current facility-administered medications on file prior to visit. Previous Medical History PAST MEDICAL HISTORY Diagnosis Date - Anorexia nervosa, restricting type - Anxiety - Ascending aorta dilation (HCC) 3.5 cm - Cervical disc disease C6-7 - Eating disorder, unspecified - Esophageal reflux - Lung nodule right - Major depressive disorder, recurrent episode, mild (HCC) - PTSD (post-traumatic stress disorder) - Snoring Previous Surgical History PAST SURGICAL HISTORY Procedure Laterality Date - LAMINECTOMY,CERVICAL 03/14/12 Laminectomy, cervical, diskectomy with fusion. - LAPAROSCOPIC CHOLEYCYSTECTOMY 1996 Cholecystectomy, lap - LIGATE FALLOPIAN TUBE 2001 Tubal ligation - REPAIR UMBILICAL NICA,5+Y/O,REDUC 06/11/2007 Simple Family History FAMILY HISTORY Problem Relation Age of Onset - Hypertension Mother - Cancer Maternal Grandmother Stomach - Cancer Paternal Grandmother COPD - Alcohol/Drug Maternal Grandfather - Ischemic Heart Disease Maternal Grandfather - Hypertension Maternal Grandfather - Hypertension Brother - other (Lung cancer) Paternal Grandfather - other (pancreatic ca) Paternal Grandfather 4 MGM siblings and patient's cousins. 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 General Appearance: Well appearing, alert, in no acute distress, well-hydrated, well nourished.. Oropharynx: Lips, mucosa, and tongue normal, teeth and gums normal, oropharynx normal. Neck: Supple, no adenopathy; thyroid symmetric, normal size, no bruits. Lungs: Lungs clear to auscultation. No wheezing, rhonchi, rales. Heart: RRR without murmur, gallop, or rubs. No ectopy. Appearance: well dressed well groomed, cooperative and pleasant Behavior: good eye contact Speech: fluent and coherent Mood: happy Affect: appropriate Perceptions: none Thought process: goal directed Thought Content: normal Intelligence level: normal Insight: fair Judgment: good ASSESSMENT/PLAN: 1. Anorexia nervosa, restricting type - ICD9: 307.1, ICD10: F50.01 (primary diagnosis) - continue with her current treatment plan and follow up with Psychiatry and Psychology as planned 2. Depression, unspecified depression type - ICD9: 311, ICD10: F32.9 Stable 3. Anxiety - ICD9: 300.00, ICD10: F41.9 Stable MARCOS Santiago SURVEY AND MAPPING TECHNICIAN.LUMP MACHINE OPERATOR CNOV Observed: 02/10/2018 Status: COMPLETED Source: [place] 9:40 AM [facility] REPOSITORY Office Visit (FAMPWS) MARLENE CARBALLO ([id number]) 1965 F Date Time Provider Department 02/10/18 9:40 AM RADHA CAMARA (AGRICULTURAL TECHNICIAN) FAMPWS During your visit today, we recorded the following information about you: Temperature Pulse Respiration Blood pressure 98.3 degrees 76/minute 16/minute 118/80 Weight 58.1 kg MARCOS Santiago SURVEY AND MAPPING TECHNICIAN.LUMP MACHINE OPERATOR 02/10/2018 10:18 AM Signed Chief Complaint Patient presents with: Recheck: 2 month HPI Marlene Carballo is a 52 year old female who presents here today for Routine 2 month follow up Anorexia, eating disorder. Continues to follow with Dr. Mccullough (Psychology)for counseling, and Psychiatry-recently added Trazodone for sleep with improvement. 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 Stressful job, learning as she goes. States overall feels she is doing well. States she is drinking Ensure to make sure she gets her protein in. Weight stable. Denies any light headedness or syncope. Last 3 Encounter Wt Readings: Date: Wt: 02/10/2018 58.1 kg (128 lb) 12/09/2017 58.2 kg (128 lb 6.4 oz) 10/07/2017 59 kg (130 lb) The ROS is otherwise negative. Past medical history, appointments, medications, allergies reviewed. Patient Allergies ALLERGIES No Known Allergies Current Medications Current Outpatient Prescriptions on File Prior to Visit: buPROPion XL (WELLBUTRIN XL) 300 mg 24 hr tablet Take 1 tablet by mouth once daily. traZODone (DESYREL) 50 mg tablet Take 1-2 tablets by mouth daily at bedtime. Swab (NO-STING SKIN-PREP) swab 1 application once daily as needed (prior to attaching TENS unit pads). TENS unit and electrodes cmpk Use as instructed. Drospirenone-Ethinyl Estradiol 3-0.02 mg per tablet Take 1 tablet by mouth once daily. [place]-3 Fatty Acids (OMEGA 3) 550 mg ORAL Cap Take one(1) tablet daily. No current facility-administered medications on file prior to visit. Previous Medical History PAST MEDICAL HISTORY Diagnosis Date - Anorexia nervosa, restricting type - Anxiety - Ascending aorta dilation (HCC) 3.5 cm - Cervical disc disease C6-7 - Eating disorder, unspecified - Esophageal reflux - Lung nodule right - Major depressive disorder, recurrent episode, mild (HCC) - PTSD (post-traumatic stress disorder) - Snoring Previous Surgical History PAST SURGICAL HISTORY Procedure Laterality Date - LAMINECTOMY,CERVICAL 03/14/12 Laminectomy, cervical, diskectomy with fusion. - LAPAROSCOPIC CHOLEYCYSTECTOMY 1996 Cholecystectomy, lap - LIGATE FALLOPIAN TUBE 2001 Tubal ligation - REPAIR UMBILICAL NICA,5+Y/O,REDUC 06/11/2007 Simple Family History FAMILY HISTORY Problem Relation Age of Onset - Hypertension Mother - Cancer Maternal Grandmother Stomach - Cancer Paternal Grandmother COPD - Alcohol/Drug Maternal Grandfather - Ischemic Heart Disease Maternal Grandfather - Hypertension Maternal Grandfather - Hypertension Brother - other (Lung cancer) Paternal Grandfather - other (pancreatic ca) Paternal Grandfather 4 MGM siblings and patient's cousins. 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 General Appearance: Well appearing, alert, in no acute distress, well-hydrated, well nourished.. Oropharynx: Lips, mucosa, and tongue normal, teeth and gums normal, oropharynx normal. Neck: Supple, no adenopathy; thyroid symmetric, normal size, no bruits. Lungs: Lungs clear to auscultation. No wheezing, rhonchi, rales. Heart: RRR without murmur, gallop, or rubs. No ectopy. Appearance: well dressed well groomed, cooperative and pleasant Behavior: good eye contact Speech: fluent and coherent Mood: happy Affect: appropriate Perceptions: none Thought process: goal directed Thought Content: normal Intelligence level: normal Insight: fair Judgment: good ASSESSMENT/PLAN: 1. Anorexia nervosa, restricting type - ICD9: 307.1, ICD10: F50.01 (primary diagnosis) - continue with her current treatment plan and follow up with Psychiatry and Psychology as planned 2. Depression, unspecified depression type - ICD9: 311, ICD10: F32.9 Stable 3. Anxiety - ICD9: 300.00, ICD10: F41.9 Stable Radha Camara, MSN SURVEY AND MAPPING TECHNICIAN.LUMP MACHINE OPERATOR Referring Provider: PATRIC MCBRIDE [[id number]] Allergies As of Date: 02/10/2018 (No Known Allergies) Date Reviewed: 02/10/2018 Reviewed by: Karrie Wells LPN - Fully Assessed Reason for Visit: Recheck [92] Cmt: 2 month Primary Visit Diagnosis:Anorexia nervosa, restricting type [F50.01] Other Visit Diagnoses:Depression, unspecified depression type [F32.9] Anxiety [F41.9] Prescriptions as of 02/10/2018 Sig: VITAMIN D3 ORAL Take 1,000 mg by mouth once d* BUPROPION XL 300 MG 24 HR TAB Take 1 tablet by mouth once d* TRAZODONE 50 MG TABLET Take 1-2 tablets by mouth delores* SWAB 1 application once daily as n* TENS UNIT AND ELECTRODES COMB* Use as instructed. DROSPIRENONE 3 MG-ETHINYL EST* Take 1 tablet by mouth once d* * FLAXSEED OIL 1000 MG CAPSULE Take one(1) tablet daily. Problem List As Of Date 02/10/2018 Noted Resolved Eating disorder [F50.9] INVALID FOR* More... UMBILICAL HERNIA [K42.9] INVALID FOR* Osteopenia [M85.80] INVALID FOR* PVC's (premature ventricular contractions) [I49*INVALID FOR* Mitral prolapse [I34.1] INVALID FOR* Depression [F32.9] INVALID FOR* Cervicalgia [M54.2] INVALID FOR* PMDD (premenstrual dysphoric disorder) [F32.81] INVALID FOR* Cervical strain [S16.1XXA] INVALID FOR* DDD (degenerative disc disease), cervical [M50.*INVALID FOR* Ascending aorta dilatation (HCC) [I77.810] INVALID FOR* Eating disorder, unspecified [F50.9] Anxiety [F41.9] Major depressive disorder, recurrent episode, m* Anorexia nervosa, restricting type [F50.01] PTSD (post-traumatic stress disorder) [F43.10] Vitamin D deficiency [E55.9] INVALID FOR* Episcleritis of left eye [H15.102] INVALID FOR* Disposition: Return in about 4 months (around 06/12/2018). Follow-up and Disposition History Recorded Encounter Status:Closed by RADHA CAMARA LUMP MACHINE OPERATOR on 02/10/18 PROGRESS Observed: 01/23/2018 Status: COMPLETED Source: [place] 2:01 PM [facility] REPOSITORY HNO ID: [id number] Author: Sanchez Mccullough Service: (none) Author Type: Psychologist Type: Progress Notes Filed: 01/27/2018 10:53 AM Note Text: [facility] Progress Note Marlene Carballo 01/23/2018 [id number] Provider: Sanchez Wood PSYD CPT Code: 30316 Psychotherapy 38-52 minutes Time: Approximately 45 minutes was spent in therapy. Parties Present: Patient Patient Presentation/Concerns: Marlene spoke to her about the start of the new treatment. She stated being disappointed by his response. She was shut down again today, affect and talking. She states being afraid that her eating disorder symptoms will escalate. She is currently restricting (but states still eating) and has urges to numb with sleep and substances. She denies doing it. Mental Status: Mood: neutral Affect: mood-congruent Thoughts/Associations:goal directed Suicidal/Homicidal Ideation: None expressed or evidenced Other Observations: Therapy Focus Mood/affect regulation MEDICATIONS: Per medical record: Current Outpatient Prescriptions: buPROPion XL (WELLBUTRIN XL) 300 mg 24 hr tablet Take 1 tablet by mouth once daily. traZODone (DESYREL) 50 mg tablet Take 1-2 tablets by mouth daily at bedtime. Swab (NO-STING SKIN-PREP) swab 1 application once daily as needed (prior to attaching TENS unit pads). TENS unit and electrodes cmpk Use as instructed. Drospirenone-Ethinyl Estradiol 3-0.02 mg per tablet Take 1 tablet by mouth once daily. [place]-3 Fatty Acids (OMEGA 3) 550 mg ORAL Cap Take one(1) tablet daily. No current facility-administered medications for this visit. Psychiatric Medication Issues: No change from previous appointment DIAGNOSIS: MO Anorexia Treatment Modality/Interventions: Cognitive Behavioral TREATMENT ASSESSMENT/PROGRESS: Stable TREATMENT PLAN/GOALS: Continue in therapy focusing on affect management, mindful eating, call/text me if needed when I am gone next week Next appointment: 2 weeks Sanchez Wood PSYD PROGRESS Observed: 01/22/2018 Status: COMPLETED Source: [place] 11:04 AM [facility] REPOSITORY O ID: [id number] Author: Sanchez Mccullough Service: (none) Author Type: Psychologist Type: Progress Notes Filed: 01/22/2018 12:30 PM Note Text: [facility] Progress Note Marlene Carballo 01/16/2018 [id number] Provider: Sanchez Wood PSYD CPT Code: 65246 Psychotherapy 38-52 minutes Time: Approximately 45 minutes was spent in therapy. Parties Present: Patient Patient Presentation/Concerns: Malrene indicated that she had spoken with Ria, the trauma therapist about getting started. She stated wanting to stop the anticipation anxiety. She continues to struggle with talking to her about the new therapy option as Ria has suggested. She states that she worries about an increase in eating disorder thoughts/behaviors as the therapy starts as the thoughts are strong now. She indicates putting pressure on herself to be over or to stop making a big deal. It's difficult jay her to validate her own feelings and to feel them without becoming overwhelmed. Mental Status: Mood: neutral Affect: mood-congruent Thoughts/Associations:goal directed Suicidal/Homicidal Ideation: None expressed or evidenced Other Observations: None Therapy Focus Mood/affect regulation MEDICATIONS: Per medical record: Current Outpatient Prescriptions: buPROPion XL (WELLBUTRIN XL) 300 mg 24 hr tablet Take 1 tablet by mouth once daily. traZODone (DESYREL) 50 mg tablet Take 1-2 tablets by mouth daily at bedtime. Swab (NO-STING SKIN-PREP) swab 1 application once daily as needed (prior to attaching TENS unit pads). TENS unit and electrodes cmpk Use as instructed. Drospirenone-Ethinyl Estradiol 3-0.02 mg per tablet Take 1 tablet by mouth once daily. [place]-3 Fatty Acids (OMEGA 3) 550 mg ORAL Cap Take one(1) tablet daily. No current facility-administered medications for this visit. Psychiatric Medication Issues: No change from previous appointment DIAGNOSIS: MO PTSD Anorexia Treatment Modality/Interventions: Cognitive Behavioral TREATMENT ASSESSMENT/PROGRESS: Stable TREATMENT PLAN/GOALS: Continue in therapy focusing on affect management. CBT and DBT coping skills, utilize mindful eating skills, coping effectively and in healthy ways to trauma triggers. Next appointment: 2 weeks Sanchez Wood PSYD PROGRESS Observed: 01/08/2018 Status: COMPLETED Source: [place] 3:13 PM [facility] REPOSITORY O ID: [id number] Author: Sanchez Mccullough Service: (none) Author Type: Psychologist Type: Progress Notes Filed: 01/21/2018 2:25 PM Note Text: [facility] Progress Note Marlene Carballo 01/08/2018 [id number] Provider: Sanchez Wood PSYD CPT Code: 17658 Psychotherapy 38-52 minutes Time: Approximately 45 minutes was spent in therapy. Parties Present: Patient Patient Presentation/Concerns: Marlene indicated having a lot of anticipation anxiety, fear and flashbacks due to her the anticipation on working on trauma therapy in the next few weeks. The anxiety has led to eating disorder urges and thoughts of self punishment. She stated she has not acted on these. Despite feeling anxious, she stated wanting to continue with the therapy. She states being anxious to get through it. She was shut down today emotionally. Stated that the thoughts were very bothersome. None of the techniques she used in the past help. Mental Status: Mood: depressed Affect: mood-congruent Thoughts/Associations:goal directed Suicidal/Homicidal Ideation: None expressed or evidenced Other Observations: None Therapy Focus Mood/affect regulation MEDICATIONS: Per medical record: Current Outpatient Prescriptions: buPROPion XL (WELLBUTRIN XL) 300 mg 24 hr tablet Take 1 tablet by mouth once daily. traZODone (DESYREL) 50 mg tablet Take 1-2 tablets by mouth daily at bedtime. Swab (NO-STING SKIN-PREP) swab 1 application once daily as needed (prior to attaching TENS unit pads). TENS unit and electrodes cmpk Use as instructed. Drospirenone-Ethinyl Estradiol 3-0.02 mg per tablet Take 1 tablet by mouth once daily. [place]-3 Fatty Acids (OMEGA 3) 550 mg ORAL Cap Take one(1) tablet daily. No current facility-administered medications for this visit. Psychiatric Medication Issues: No change from previous appointment DIAGNOSIS: Diagnosis: MO Anorexia Treatment Modality/Interventions: Cognitive Behavioral TREATMENT ASSESSMENT/PROGRESS: Increase in eating disorder thoughts, sad affect, shut down. Her fear is that other people will notice that she is upset TREATMENT PLAN/GOALS: Continue in therapy focusing on affect management. I contacted Marlene after the session via phone to see how she was doing. She stated that the thoughts continued to be bothersome and exhausting. She indicated she would try some of the techniques (distraction, music, sleep) ##I called [facility], to let her know I would be gone for two weeks in January. We spoke about Marlene's anxiety about the upcoming therapy of Cognitive Processing Therapy. We agreed to keep in contact. she stated that she would wait until after I returned to begin as I am one of Marlene's main suppo rts. Next appointment: 2 weeks Sanchez Wood PSYD PROGRESS Observed: 01/01/2018 Status: COMPLETED Source: [place] 6:43 PM [facility] REPOSITORY HNO ID: [id number] Author: Sanchez Mccullough Service: (none) Author Type: Psychologist Type: Progress Notes Filed: 01/15/2018 4:49 PM Note Text: [facility] Progress Note Marlene Carballo 01/01/2018 [id number] Provider: Sanchez Wood PSYD CPT Code: 21394 Psychotherapy 38-52 minutes Time: Approximately 45 minutes was spent in therapy. Parties Present: Patient Patient Presentation/Concerns: Marlene indicated that she feels shut down this week. She was very quiet, not very talkative in session. She states being triggered in the last session with Ria. She states wanting more support, which she does not get at home. Marlene indicates disconnecting from others, shutting down. Mental Status: Mood: neutral Affect: mood-congruent and flat Thoughts/Associations:goal directed, ruminative Suicidal/Homicidal Ideation: None expressed or evidenced Other Observations: None Therapy Focus Mood/affect regulation MEDICATIONS: Per medical record: Current Outpatient Prescriptions: buPROPion XL (WELLBUTRIN XL) 300 mg 24 hr tablet Take 1 tablet by mouth once daily. traZODone (DESYREL) 50 mg tablet Take 1-2 tablets by mouth daily at bedtime. Swab (NO-STING SKIN-PREP) swab 1 application once daily as needed (prior to attaching TENS unit pads). [facility] Use as instructed. Drospirenone-Ethinyl Estradiol 3-0.02 mg per tablet Take 1 tablet by mouth once daily. [place]-3 Fatty Acids (OMEGA 3) 550 mg ORAL Cap Take one(1) tablet daily. No current facility-administered medications for this visit. Psychiatric Medication Issues: No change from previous appointment DIAGNOSIS: MO PTSD Anorexia Treatment Modality/Interventions: Cognitive Behavioral TREATMENT ASSESSMENT/PROGRESS: Stable TREATMENT PLAN/GOALS: Continue in therapy focusing on affect management. 1) Time with recovery journal 2) Connect with others to maintain the connection Next appointment: 2 weeks Sanchez Wood PSYD PROGRESS Observed: 12/31/2017 Status: COMPLETED Source: [place] 12:58 PM [facility] REPOSITORY HNO ID: [id number] Author: Sanchez Mccullough Service: (none) Author Type: Psychologist Type: Progress Notes Filed: 01/08/2018 6:33 PM Note Text: [facility] Progress Note Marlene Carballo 12/26/2017 [id number] Provider: Sanchez Wood PSYD CPT Code: 06341 Psychotherapy 38-52 minutes Time: Approximately 45 minutes was spent in therapy. Parties Present: Patient Patient Presentation/Concerns: Marlene spoke about a lot of anxiety regarding events and home. She indicated an increase in eating disorder thoughts. She stated it may be due to the trauma therapist indicating they would get started in January. Also, she stated struggling with having little support at home regarding her eating disorder. Mental Status: Mood: depressed Affect: mood-congruent Thoughts/Associations:goal directed Suicidal/Homicidal Ideation: None expressed or evidenced Other Observations: None Therapy Focus Mood/affect regulation MEDICATIONS: Per medical record: Current Outpatient Prescriptions: buPROPion XL (WELLBUTRIN XL) 300 mg 24 hr tablet Take 1 tablet by mouth once daily. traZODone (DESYREL) 50 mg tablet Take 1-2 tablets by mouth daily at bedtime. Swab (NO-STING SKIN-PREP) swab 1 application once daily as needed (prior to attaching TENS unit pads). TENS unit and electrodes cmpk Use as instructed. Drospirenone-Ethinyl Estradiol 3-0.02 mg per tablet Take 1 tablet by mouth once daily. [place]-3 Fatty Acids (OMEGA 3) 550 mg ORAL Cap Take one(1) tablet daily. No current facility-administered medications for this visit. Psychiatric Medication Issues: No change from previous appointment DIAGNOSIS: MO Anorexia PTSD Treatment Modality/Interventions: Cognitive Behavioral TREATMENT ASSESSMENT/PROGRESS: Reported an increase in Eating Disorder symptoms TREATMENT PLAN/GOALS: Continue in therapy focusing on anxiety management, coping with trauma triggers eff Call Ria about the therapy and connecting/treatment planning. Next appointment: 1 week Sanchez Wood PSYD PROGRESS Observed: 12/19/2017 Status: COMPLETED Source: [place] 1:04 PM [facility] REPOSITORY HNO ID: [id number] Author: Sanchez Mccullough Service: (none) Author Type: Psychologist Type: Progress Notes Filed: 12/25/2017 7:15 PM Note Text: [facility] Progress Note Marlene Carballo 12/19/2017 [id number] Provider: Sanchez Wood PSYD CPT Code: 06402 Psychotherapy 38-52 minutes Time: Approximately 45 minutes was spent in therapy. Parties Present: Patient Patient Presentation/Concerns: Marlene indicated that she is still restricting. She stated needing a dietitian. She agreed to look into this option with her insurance. Marlene is still processing/adapting to the new therapist. She states disclosing things triggers anxiety. After the sessions, she noticed an increase in anxiety. Her daughter lost weight due to medication. This was triggering to her. Mental Status: Mood: neutral Affect: mood-congruent Thoughts/Associations:goal directed Suicidal/Homicidal Ideation: None expressed or evidenced Other Observations: None Therapy Focus Mood/affect regulation MEDICATIONS: Per medical record: Current Outpatient Prescriptions: buPROPion XL (WELLBUTRIN XL) 300 mg 24 hr tablet Take 1 tablet by mouth once daily. traZODone (DESYREL) 50 mg tablet Take 1-2 tablets by mouth daily at bedtime. Swab (NO-STING SKIN-PREP) swab 1 application once daily as needed (prior to attaching TENS unit pads). TENS unit and electrodes cmpk Use as instructed. Drospirenone-Ethinyl Estradiol 3-0.02 mg per tablet Take 1 tablet by mouth once daily. [place]-3 Fatty Acids (OMEGA 3) 550 mg ORAL Cap Take one(1) tablet daily. No current facility-administered medications for this visit. Psychiatric Medication Issues: No change from previous appointment DIAGNOSIS: Diagnosis: MO Anorexia PTSD Treatment Modality/Interventions: Cognitive Behavioral TREATMENT ASSESSMENT/PROGRESS: Stable TREATMENT PLAN/GOALS: Continue in therapy focusing on affect management and mindful eating. Next appointment: 2 weeks Sanchez Wood PSYD PROGRESS Observed: 12/12/2017 Status: COMPLETED Source: [place] 9:40 AM [facility] REPOSITORY O ID: [id number] Author: Sendy Hamm Service: (none) Author Type: Physician Type: Progress Notes Filed: 12/12/2017 9:47 AM Note Text: Marlene Carballo 1965 Psychiatric Evaluation -December 12, 2017 seen for 30 minutes History obtained per interview with patient and review of chart. CC: Follow Up; Depression; and Anxiety/ Anorexia My main problem is anxiety HPI/Interim History: Mood stable and euthymic since summer 2016. Denies depression. Admits to decreased energy associated with food restriction July and September. Increased food intake over the past 2-3 weeks has resulted in increased energy and ability to focus. Reports decreased appetite overall. Reports general intake as: Breakfast-Egg, Kyr[place] muffin, milk Lunch-cottage cheese or yogurt or protein bar Dinner-protein and fruit Snack-2 Ensures daily Denies diet pills laxatives or Sudafed's. Denies binging or purging. Ruminative anxiety increased over the past 2 weeks associated with the start of school. 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 No suicidal or homicidal ideation. No symptoms consistent with psychosis. Sleeping from 10 PM until between 5 and 8 AM. Labs from January 2016 reviewed. Phosphorous normal at 3.0. Creatinine mildly elevated at 1.08. TSH normal at 2.9. Hemoglobin and hematocrit low at 11 and 33. [place] level from September 2015 - 0.2 Labs reviewed from July 19, 2016. Creatinine 1.0. Family/social history -[place] 4 children - Reggie (23), Mitch (21), Lizett Snyder (18), Erik (16) Nurse Alcohol none Denies illicit drug use Past medical history Cervical fusion Current Psychiatric Meds: Wellbutrin XL 300 mg daily MSE: Patient is alert and oriented in no acute distress. Appears stated age. Ambulatory with normal gait and station. Casually dressed and groomed with appropriate hygiene. Cooperative with interview. Good eye contact. No psychomotor agitation or retardation. Mood is anxious. Affect congruent. Speech is clear and of regular rate and volume. Language fluent. Thought process organized. Associations logical. Thought content significant for ruminative anxiety . No current suicidal ideation related to her detected. No homicidal ideation or symptoms of psychosis related to her detected. Immediate recent and remote memory grossly intact. Attention and concentration are good. Estimated intelligence fund of knowledge average. Judgment and insight are fair . Diagnosis: Encounter Diagnosis ICD-10-CM 1. Major depressive disorder, recurrent episode, mild (HCC) F33.0 2. Anxiety F41.9 3. PTSD (post-traumatic stress disorder) F43.10 4. Anorexia nervosa, restricting type F50.01 PHOSPHORUS INORGANIC COMP METABOLIC PANEL MAGNESIUM BLD 5. Vitamin D deficiency E55.9 Plan: Continue medication management and psychotherapy. Risks benefits alternatives of medications discussed with patient. Risks of Wellbutrin and disordered eating discussed including increased risk of seizure. Benefit continues to outweigh risk at this time. Patient acknowledges understanding that should ongoing weight loss and disordered eating symptoms persist that alternative medications may be better options. Wellbutrin XL 300 mg daily September 24, 2016 labs reviewed. CMP within normal limits. TSH 1.9 Requisition for lab work provided including CMP, phosphorus, magnesium Continue follow-up with primary care physician Dr. Mcbride. Continue therapy with Dr. Sanchez Matos. Continue with Ria Granger at [place] of traumatic stress. Review recovery journal. Normalized eating encouraged. Encouraged to follow meal plan with food logs. Decreased social media. No Sudafed. Encouraged to see dietitian. Referral provided for . Psychotherapy Time: 20 minutes insight oriented psychotherapy . Follow up with primary care physician/providers for medical issues. Plan discussed including risks, benefits and side effects of medications (ongoing discussion). Patient acknowledges understanding and is agreeable to plan. Patient feels able to maintain safety for self and others. Patient agrees to seek help or emergency care should symptoms worsen. Sendy Hamm MD PROGRESS Observed: 12/11/2017 Status: COMPLETED Source: [place] 6:24 PM [facility] REPOSITORY O ID: [id number] Author: Sanchez Mccullough Service: (none) Author Type: Psychologist Type: Progress Notes Filed: 12/25/2017 3:50 PM Note Text: [facility] Progress Note Marlene Carballo 12/11/2017 [id number] Provider: Sanchez Wood PSYD CPT Code: 51738 Psychotherapy 38-52 minutes Time: Approximately 45 minutes was spent in therapy. Parties Present: Patient Patient Presentation/Concerns: Marlene indicated that she had lost weight. Discussed how the eating disorder thoughts may trigger other thoughts (ex. you lost weight, keep going). Marlene has an appointment tomorrow with her psychiatrist. We discussed what she wishes to gain in the appointment with AC. Specifically, we spoke about being direct about what she needs. Mental Status: Mood: neutral Affect: mood-congruent Thoughts/Associations:goal directed Suicidal/Homicidal Ideation: None expressed or evidenced Other Observations: Therapy Focus Mood/affect regulation MEDICATIONS: Per medical record: Current Outpatient Prescriptions: buPROPion XL (WELLBUTRIN XL) 300 mg 24 hr tablet Take 1 tablet by mouth once daily. Swab (NO-STING SKIN-PREP) swab 1 application once daily as needed (prior to attaching TENS unit pads). TENS unit and electrodes cmpk Use as instructed. Drospirenone-Ethinyl Estradiol 3-0.02 mg per tablet Take 1 tablet by mouth once daily. [place]-3 Fatty Acids (OMEGA 3) 550 mg ORAL Cap Take one(1) tablet daily. No current facility-administered medications for this visit. Psychiatric Medication Issues: No change from previous appointment DIAGNOSIS: MO PTSD Anoreixa Treatment Modality/Interventions: Cognitive Behavioral TREATMENT ASSESSMENT/PROGRESS: Stable TREATMENT PLAN/GOALS: Continue in therapy focusing on affect management, mindful eating, CBT for reducing eating disorder thoughts Next appointment: 2 weeks Sanchez Wood PSYD PROGRESS Observed: 12/09/2017 Status: COMPLETED Source: [place] 8:14 AM [facility] [place] REPOSITORY O ID: [id number] Author: Patric Mcbride Service: (none) Author Type: Physician Type: Progress Notes Filed: 12/09/2017 8:51 AM Note Text: Chief Complaint Patient presents with: Recheck HPI Marlene Carballo is a 52 year old female who presents here today for a 2 mo f/u. Pt here today to follow up. Hip pain - Improvement in bilateral hip pain since last seeing Radha Camara. Pt states that with PT she had much improvement. Does not feel Rheum eval needed at this point. Eating - Weight has been stable. Follows with psychiatry and psychologist Discussed family history of pancreatic caner. Apparently her mother is being genetically tested this fall; recommended waiting to see these results and can refer Marlene for genetic testing if she is positive. Oc palpitations; not bothersome Past medical history, appointments, medications, allergies reviewed. Previous Medical History PAST MEDICAL HISTORY Diagnosis Date - Anorexia nervosa, restricting type - Anxiety - Ascending aorta dilation (HCC) 3.5 cm - Cervical disc disease C6-7 - Eating disorder, unspecified - Esophageal reflux - Lung nodule right - Major depressive disorder, recurrent episode, mild (HCC) - PTSD (post-traumatic stress disorder) - Snoring Previous Surgical History PAST SURGICAL HISTORY Procedure Laterality Date - LAMINECTOMY,CERVICAL 03/14/12 Laminectomy, cervical, diskectomy with fusion. - LAPAROSCOPIC CHOLEYCYSTECTOMY 1996 Cholecystectomy, lap - LIGATE FALLOPIAN TUBE 2001 Tubal ligation - REPAIR UMBILICAL NICA,5+Y/O,REDUC 06/11/2007 Simple Family History FAMILY HISTORY Problem Relation Age of Onset - Hypertension Mother - Cancer Maternal Grandmother Stomach - Cancer Paternal Grandmother COPD - Alcohol/Drug Maternal Grandfather - Ischemic Heart Disease Maternal Grandfather - Hypertension Maternal Grandfather - Hypertension Brother - other (Lung cancer) Paternal Grandfather - other (pancreatic ca) Paternal Grandfather 4 MGM siblings and patient's cousins. Patient Allergies ALLERGIES No Known Allergies Current Medications Current Outpatient Prescriptions on File Prior to Visit: buPROPion XL (WELLBUTRIN XL) 300 mg 24 hr tablet Take 1 tablet by mouth once daily. Swab (NO-STING SKIN-PREP) swab 1 application once daily as needed (prior to attaching TENS unit pads). TENS unit and electrodes cmpk Use as instructed. Drospirenone-Ethinyl Estradiol 3-0.02 mg per tablet Take 1 tablet by mouth once daily. [place]-3 Fatty Acids (OMEGA 3) 550 mg ORAL Cap Take one(1) tablet daily. No current facility-administered medications on file prior to visit. 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 General Appearance: Well appearing, alert, in no acute distress, well-hydrated, well nourished.. Lungs: Lungs clear to auscultation. No wheezing, rhonchi, rales. Heart: RRR without murmur, gallop, or rubs. No ectopy. Health Maintenance List HPV EVERY 5 YEARS due on 10/27/1997 DTAP,TDAP,TD(2 - Tdap) due on 10/13/2012 COLORECTAL CANCER SCREENING,SEE MODIFIER due on 10/27/2017 INFLUENZA(1) due on 12/14/2017 PAP EVERY 5 YEARS due on 06/27/2018 MAMMOGRAM due on 09/14/2018 DIABETES SCREEN due on 10/07/2020 LIPID SCREEN due on 02/01/2021 Data reviewed No visits with results within 2 Month(s) from this visit. Latest known visit with results is: Appointment on 10/07/2017 Component Date Value - WBC 10/07/2017 6.59 - RBC 10/07/2017 3.91 - Hemoglobin 10/07/2017 11.4* - Hematocrit 10/07/2017 36.7 - MCV 10/07/2017 93.9 - MCH 10/07/2017 29.2 - MCHC 10/07/2017 31.1 - RDW-CV 10/07/2017 13.2 - Platelet Count 10/07/2017 306 - MPV 10/07/2017 11.0 - Neut% 10/07/2017 64.3 - Abs Neut (ANC) 10/07/2017 4.22 - Lymph% 10/07/2017 29.6 - Abs Lymph 10/07/2017 1.95 - Emery% 10/07/2017 5.0 - Abs Emery 10/07/2017 0.33 - Eosin% 10/07/2017 0.8 - Abs Eosin 10/07/2017 0.05 - Baso% 10/07/2017 0.3 - Abs Baso 10/07/2017 <0.03 - Nucleated Reds 10/07/2017 0.0 - Absolute nRBC 10/07/2017 <0.01 - Diff Type 10/07/2017 Auto Diff - Ferritin 10/07/2017 52.9 - Vitamin D 25 Hydroxy 10/07/2017 39.4 - Protein, Total 10/07/2017 7.5 - Albumin 10/07/2017 4.4 - Calcium 10/07/2017 9.6 - Bilirubin, Total 10/07/2017 0.4 - Alkaline Phosphatase 10/07/2017 35 - AST 10/07/2017 21 - Glucose 10/07/2017 92 - BUN 10/07/2017 10 - Creatinine 10/07/2017 0.80 - Sodium 10/07/2017 137 - Potassium 10/07/2017 4.3 - Chloride 10/07/2017 101 - CO2 10/07/2017 24 - Anion Gap 10/07/2017 12 - ALT 10/07/2017 16 - eGFR- 10/07/2017 >60 - eGFR-All Other Races 10/07/2017 >60 - WSR 10/07/2017 28* - CRP 10/07/2017 0.4 ASSESSMENT/PLAN: 1. Anorexia nervosa, restricting type - ICD9: 307.1, ICD10: F50.01 Continue current medications. Follow up in 2 months with Radha Camara, 4 months with me I agree with the Chief Complaint, ROS, and Past Histories independently gathered by the clinical production support specialist and the remaining scribed note accurately describes my personal service to the patient. Patric Mcbride MD The documentation for this note was completed by Brit Schwartz Ma acting as scribe for Patric Mcbride MD. December 09, 2017 8:15 AM. CNOV Observed: 12/09/2017 Status: COMPLETED Source: [place] 8:00 AM [facility] REPOSITORY Office Visit (FAMPWS) MARLENE CARBALLO ([id number]) 1965 F Date Time Provider Department 12/09/17 8:00 AM [facility] During your visit today, we recorded the following information about you: Pulse Respiration Blood pressure Weight 68/minute 12/minute 110/74 58.2 kg Patric Mcbride MD 12/09/2017 8:51 AM Signed Chief Complaint Patient presents with: Recheck HPI Marlene Carballo is a 52 year old female who presents here today for a 2 mo f/u. Pt here today to follow up. Hip pain - Improvement in bilateral hip pain since last seeing Radha Camara. Pt states that with PT she had much improvement. Does not feel Rheum eval needed at this point. Eating - Weight has been stable. Follows with psychiatry and psychologist Discussed family history of pancreatic caner. Apparently her mother is being genetically tested this fall; recommended waiting to see these results and can refer Marlene for genetic testing if she is positive. Oc palpitations; not bothersome Past medical history, appointments, medications, allergies reviewed. Previous Medical History PAST MEDICAL HISTORY Diagnosis Date - Anorexia nervosa, restricting type - Anxiety - Ascending aorta dilation (HCC) 3.5 cm - Cervical disc disease C6-7 - Eating disorder, unspecified - Esophageal reflux - Lung nodule right - Major depressive disorder, recurrent episode, mild (HCC) - PTSD (post-traumatic stress disorder) - Snoring Previous Surgical History PAST SURGICAL HISTORY Procedure Laterality Date - LAMINECTOMY,CERVICAL 03/14/12 Laminectomy, cervical, diskectomy with fusion. - LAPAROSCOPIC CHOLEYCYSTECTOMY 1996 Cholecystectomy, lap - LIGATE FALLOPIAN TUBE 2001 Tubal ligation - REPAIR UMBILICAL NICA,5+Y/O,REDUC 06/11/2007 Simple Family History FAMILY HISTORY Problem Relation Age of Onset - Hypertension Mother - Cancer Maternal Grandmother Stomach - Cancer Paternal Grandmother COPD - Alcohol/Drug Maternal Grandfather - Ischemic Heart Disease Maternal Grandfather - Hypertension Maternal Grandfather - Hypertension Brother - other (Lung cancer) Paternal Grandfather - other (pancreatic ca) Paternal Grandfather 4 MGM siblings and patient's cousins. Patient Allergies ALLERGIES No Known Allergies Current Medications Current Outpatient Prescriptions on File Prior to Visit: buPROPion XL (WELLBUTRIN XL) 300 mg 24 hr tablet Take 1 tablet by mouth once daily. Swab (NO-STING SKIN-PREP) swab 1 application once daily as needed (prior to attaching TENS unit pads). TENS unit and electrodes cmpk Use as instructed. Drospirenone-Ethinyl Estradiol 3-0.02 mg per tablet Take 1 tablet by mouth once daily. [place]-3 Fatty Acids (OMEGA 3) 550 mg ORAL Cap Take one(1) tablet daily. No current facility-administered medications on file prior to visit. Social History Social History Marital status: Spouse name: Isabelle Years of education: Number of children: 4 Occupational History Occupation Employer Comment [employer]* [employer] * Social History Main Topics Smoking status: Never Smoker Smokeless tobacco: Never Used Alcohol use: No Drug use: No Sexual activity: Yes Partners with: Male EXAM: BP 110/74 (BP Site: Left Arm, BP Position: Sitting, BP Cuff Size: Regular Adult) Pulse 68 Resp 12 Wt 58.2 kg (128 lb 6.4 oz) BMI 22.39 kg/m? General Appearance: Well appearing, alert, in no acute distress, well-hydrated, well nourished.. Lungs: Lungs clear to auscultation. No wheezing, rhonchi, rales. Heart: RRR without murmur, gallop, or rubs. No ectopy. Health Maintenance List HPV EVERY 5 YEARS due on 10/27/1997 DTAP,TDAP,TD(2 - Tdap) due on 10/13/2012 COLORECTAL CANCER SCREENING,SEE MODIFIER due on 10/27/2017 INFLUENZA(1) due on 12/14/2017 PAP EVERY 5 YEARS due on 06/27/2018 MAMMOGRAM due on 09/14/2018 DIABETES SCREEN due on 10/07/2020 LIPID SCREEN due on 02/01/2021 Data reviewed No visits with results within 2 Month(s) from this visit. Latest known visit with results is: Appointment on 10/07/2017 Component Date Value - WBC 10/07/2017 6.59 - RBC 10/07/2017 3.91 - Hemoglobin 10/07/2017 11.4* - Hematocrit 10/07/2017 36.7 - MCV 10/07/2017 93.9 - MCH 10/07/2017 29.2 - MCHC 10/07/2017 31.1 - RDW-CV 10/07/2017 13.2 - Platelet Count 10/07/2017 306 - MPV 10/07/2017 11.0 - Neut% 10/07/2017 64.3 - Abs Neut (ANC) 10/07/2017 4.22 - Lymph% 10/07/2017 29.6 - Abs Lymph 10/07/2017 1.95 - Emery% 10/07/2017 5.0 - Abs Emery 10/07/2017 0.33 - Eosin% 10/07/2017 0.8 - Abs Eosin 10/07/2017 0.05 - Baso% 10/07/2017 0.3 - Abs Baso 10/07/2017 <0.03 - Nucleated Reds 10/07/2017 0.0 - Absolute nRBC 10/07/2017 <0.01 - Diff Type 10/07/2017 Auto Diff - Ferritin 10/07/2017 52.9 - Vitamin D 25 Hydroxy 10/07/2017 39.4 - Protein, Total 10/07/2017 7.5 - Albumin 10/07/2017 4.4 - Calcium 10/07/2017 9.6 - Bilirubin, Total 10/07/2017 0.4 - Alkaline Phosphatase 10/07/2017 35 - AST 10/07/2017 21 - Glucose 10/07/2017 92 - BUN 10/07/2017 10 - Creatinine 10/07/2017 0.80 - Sodium 10/07/2017 137 - Potassium 10/07/2017 4.3 - Chloride 10/07/2017 101 - CO2 10/07/2017 24 - Anion Gap 10/07/2017 12 - ALT 10/07/2017 16 - eGFR- 10/07/2017 >60 - eGFR-All Other Races 10/07/2017 >60 - WSR 10/07/2017 28* - CRP 10/07/2017 0.4 ASSESSMENT/PLAN: 1. Anorexia nervosa, restricting type - ICD9: 307.1, ICD10: F50.01 Continue current medications. Follow up in 2 months with Radha Camara, 4 months with me I agree with the Chief Complaint, ROS, and Past Histories independently gathered by the clinical production support specialist and the remaining scribed note accurately describes my personal service to the patient. Patric Mcbride MD The documentation for this note was completed by Brit Schwartz Ma acting as scribe for Patric Mcbride MD. December 09, 2017 8:15 AM. Referring Provider: RADHA CAMARA (AGRICULTURAL TECHNICIAN) [[id number]] Allergies As of Date: 12/09/2017 (No Known Allergies) Date Reviewed: 10/07/2017 Reviewed by: Karrie Wells LPN - Fully Assessed Reason for Visit: Recheck [92] Primary Visit Diagnosis:Anorexia nervosa, restricting type [F50.01] Prescriptions as of 12/09/2017 Sig: BUPROPION XL 300 MG 24 HR TAB Take 1 tablet by mouth once d* SWAB 1 application once daily as n* TENS UNIT AND ELECTRODES COMB* Use as instructed. DROSPIRENONE 3 MG-ETHINYL EST* Take 1 tablet by mouth once d* * FLAXSEED OIL 1000 MG CAPSULE Take one(1) tablet daily. Problem List As Of Date 12/09/2017 Noted Resolved Eating disorder [F50.9] INVALID FOR* More... UMBILICAL HERNIA [K42.9] INVALID FOR* Osteopenia [M85.80] INVALID FOR* PVC's (premature ventricular contractions) [I49*INVALID FOR* Mitral prolapse [I34.1] INVALID FOR* Depression [F32.9] INVALID FOR* Cervicalgia [M54.2] INVALID FOR* PMDD (premenstrual dysphoric disorder) [F32.81] INVALID FOR* Cervical strain [S16.1XXA] INVALID FOR* DDD (degenerative disc disease), cervical [M50.*INVALID FOR* Ascending aorta dilatation (HCC) [I77.810] INVALID FOR* Eating disorder, unspecified [F50.9] Anxiety [F41.9] Major depressive disorder, recurrent episode, m* Anorexia nervosa, restricting type [F50.01] PTSD (post-traumatic stress disorder) [F43.10] Vitamin D deficiency [E55.9] INVALID FOR* Episcleritis of left eye [H15.102] INVALID FOR* Disposition: Return in about 2 months (around 02/08/2018). Follow-up and Disposition History Recorded Encounter Status:Closed by PATRIC MCBRIDE MD on 12/09/17 PROGRESS Observed: 12/05/2017 Status: COMPLETED Source: [place] 9:57 AM [facility] REPOSITORY HNO ID: [id number] Author: Sanchez Mccullough Service: (none) Author Type: Psychologist Type: Progress Notes Filed: 12/12/2017 8:18 AM Note Text: [facility] Progress Note Marlene Carballo 12/05/2017 [id number] Provider: Sanchez Wood PSYD CPT Code: 65402 Psychotherapy 38-52 minutes Time: Approximately 45 minutes was spent in therapy. Parties Present: Patient Patient Presentation/Concerns: Marlene indicated that she had a panic attack on Sat. She stated continuing to struggle with the transitioning to the new trauma therapist. Marlene stated that she isn't getting enough food daily/continues to restrict. Discussed adding a Boost/Ensure daily. She states having a lot of anxiety about her upcoming weigh in appointment. Mental Status: Mood: anxious Affect: mood-congruent Thoughts/Associations:goal directed Suicidal/Homicidal Ideation: None expressed or evidenced Other Observations: Therapy Focus Mood/affect regulation MEDICATIONS: Per medical record: Current Outpatient Prescriptions: buPROPion XL (WELLBUTRIN XL) 300 mg 24 hr tablet Take 1 tablet by mouth once daily. Swab (NO-STING SKIN-PREP) swab 1 application once daily as needed (prior to attaching TENS unit pads). TENS unit and electrodes cmpk Use as instructed. Drospirenone-Ethinyl Estradiol 3-0.02 mg per tablet Take 1 tablet by mouth once daily. [place]-3 Fatty Acids (OMEGA 3) 550 mg ORAL Cap Take one(1) tablet daily. No current facility-administered medications for this visit. Psychiatric Medication Issues: No change from previous appointment DIAGNOSIS: MO PTSD Anorexia Treatment Modality/Interventions: Cognitive Behavioral TREATMENT ASSESSMENT/PROGRESS: Stable, She states thinking about food a lot, a lot of mental/draining energy toward food/not eating TREATMENT PLAN/GOALS: Continue in therapy focusing on self- care, stress management and affect management. 1) 1 boost or ensure a day 2) CBT for eating disordered thoughts Next appointment: 2 weeks Sanchez Wood PSYD PROGRESS Observed: 11/27/2017 Status: COMPLETED Source: [place] 1:59 PM [facility] REPOSITORY HNO ID: [id number] Author: Sanchez Mccullough Service: (none) Author Type: Psychologist Type: Progress Notes Filed: 12/05/2017 3:07 PM Note Text: [facility] Progress Note Marlene Carballo 11/27/2017 [id number] Provider: Sanchez Wood PSYD CPT Code: 13380 Psychotherapy 38-52 minutes Time: Approximately 45 minutes was spent in therapy. Parties Present: Patient Patient Presentation/Concerns: Marlene met with the new trauma therapist. She stated that it went well and is still adjusting to the new situation. She indicated that the eating disorder symptoms were strong this week. Continues to struggle with eating enough Restriction and thinking about food is a significant problem. She stated that working nights may have exacerbated the current symptoms. Mental Status: Mood: depressed Affect: mood-congruent Thoughts/Associations:goal directed Suicidal/Homicidal Ideation: None expressed or evidenced Other Observations: Therapy Focus Mood/affect regulation MEDICATIONS: Per medical record: Current Outpatient Prescriptions: buPROPion XL (WELLBUTRIN XL) 300 mg 24 hr tablet Take 1 tablet by mouth once daily. Swab (NO-STING SKIN-PREP) swab 1 application once daily as needed (prior to attaching TENS unit pads). TENS unit and electrodes cmpk Use as instructed. Drospirenone-Ethinyl Estradiol 3-0.02 mg per tablet Take 1 tablet by mouth once daily. [place]-3 Fatty Acids (OMEGA 3) 550 mg ORAL Cap Take one(1) tablet daily. No current facility-administered medications for this visit. Psychiatric Medication Issues: No change from previous appointment DIAGNOSIS: MO PTSD Treatment Modality/Interventions: Cognitive Behavioral TREATMENT ASSESSMENT/PROGRESS: Stable, It is difficult for Marlene to talk about or identify feelings about new therapist. TREATMENT PLAN/GOALS: Continue in therapy focusing on affect management, CBT for anxiety, mindful eating, increase meal plan Next appointment: 2 weeks Sanchez Wood PSYD PROGRESS Observed: 11/20/2017 Status: COMPLETED Source: [place] 2:30 PM [facility] REPOSITORY HNO ID: [id number] Author: Sanchez Mccullough Service: (none) Author Type: Psychologist Type: Progress Notes Filed: 12/04/2017 9:38 AM Note Text: [facility] Progress Note Marlene Carballo 11/20/2017 [id number] Provider: Sanchez Wood PSYD CPT Code: 05707 Psychotherapy 38-52 minutes Time: Approximately 45 minutes was spent in therapy. Parties Present: Patient Patient Presentation/Concerns: Marlene indicated that she is switching therapist at the trauma center next week. We discussed the therapists roll, what she hopes to gain from continuing therapy and how to integrate the two more. I gave her a release to share with the new therapist. Given that there is not a local IOP program, having a team has been helpful in coping with PTSD and eating disorder symptoms. She would like to work with a dietitian as well. She just returned from [place] visiting her son. Mental Status: Mood: neutral Affect: mood-congruent Thoughts/Associations:goal directed Suicidal/Homicidal Ideation: None expressed or evidenced Other Observations: Therapy Focus Mood/affect regulation MEDICATIONS: Per medical record: Current Outpatient Prescriptions: buPROPion XL (WELLBUTRIN XL) 300 mg 24 hr tablet Take 1 tablet by mouth once daily. Swab (NO-STING SKIN-PREP) swab 1 application once daily as needed (prior to attaching TENS unit pads). TENS unit and electrodes cmpk Use as instructed. Drospirenone-Ethinyl Estradiol 3-0.02 mg per tablet Take 1 tablet by mouth once daily. [place]-3 Fatty Acids (OMEGA 3) 550 mg ORAL Cap Take one(1) tablet daily. No current facility-administered medications for this visit. Psychiatric Medication Issues: No change from previous appointment DIAGNOSIS: MO PTSD Anorexia Treatment Modality/Interventions: Cognitive Behavioral TREATMENT ASSESSMENT/PROGRESS: Stable TREATMENT PLAN/GOALS: Continue in therapy focusing on affect management, mindful eating, coordinating with treatment team Next appointment: 2 weeks Sanchez Wood PSYD PROGRESS Observed: 11/06/2017 Status: COMPLETED Source: [place] 6:33 PM [facility] REPOSITORY HNO ID: [id number] Author: Sanchez Mccullough Service: (none) Author Type: Psychologist Type: Progress Notes Filed: 11/12/2017 3:12 PM Note Text: [facility] Progress Note Marlene Carballo 11/06/2017 [id number] Provider: Sanchez Wood PSYD CPT Code: 45227 Psychotherapy 38-52 minutes Time: Approximately 45 minutes was spent in therapy. Parties Present: Patient Patient Presentation/Concerns: Marlene is going to [place] next week to visit her son. She reported a continued improvement and stability in her eating although sometimes still on the side of restriction. Also, she restarted the Wellbutrin, which she indicated was helpful. Stated using the meal plan from the past to help her gauge amount. Yesterday was the last session with her trauma therapist. Mental Status: Mood: neutral Affect: mood-congruent Thoughts/Associations:goal directed Suicidal/Homicidal Ideation: None expressed or evidenced Other Observations: None Therapy Focus Mood/affect regulation MEDICATIONS: Per medical record: Current Outpatient Prescriptions: buPROPion XL (WELLBUTRIN XL) 300 mg 24 hr tablet Take 1 tablet by mouth once daily. Swab (NO-STING SKIN-PREP) swab 1 application once daily as needed (prior to attaching TENS unit pads). [facility] Use as instructed. Drospirenone-Ethinyl Estradiol 3-0.02 mg per tablet Take 1 tablet by mouth once daily. [place]-3 Fatty Acids (OMEGA 3) 550 mg ORAL Cap Take one(1) tablet daily. No current facility-administered medications for this visit. Psychiatric Medication Issues: Started Wellbutrin again DIAGNOSIS: Diagnosis: MO PTSD Anorexia Treatment Modality/Interventions: Cognitive Behavioral TREATMENT ASSESSMENT/PROGRESS: Stated improvement in eating by Marlene. Reduction in/no self harming thoughts (restriction, meds etc). TREATMENT PLAN/GOALS: Continue in therapy focusing on affect management, Mindful eating, CBT for anxiety. She ended yesterday with her trauma therapist and will be transferring to a new therapist. Next appointment: 2 weeks Sanchez Wood PSYD PROGRESS Observed: 10/30/2017 Status: COMPLETED Source: [place] 3:01 PM [facility] REPOSITORY HNO ID: [id number] Author: Sanchez Mccullough Service: (none) Author Type: Psychologist Type: Progress Notes Filed: 11/07/2017 10:53 AM Note Text: [facility] Progress Note Marlene Carballo 10/30/2017 [id number] Provider: Sanchez Wood PSYD CPT Code: 76595 Psychotherapy 38-52 minutes Time: Approximately 45 minutes was spent in therapy. Parties Present: Patient Patient Presentation/Concerns: Marlene successfully met the challenges for her birthday. She reviewed the positive/encouraging letter she wrote to herself to help cope with ED thoughts after the weekend. She brought in her map of stuck thinking. She wrote her core thoughts, how they have shifted and things to still work on (I'm disgusting, people will leave me, I'm making a big deal out of nothing) etc. Marlene indicated a challenge this weekend of being alone and making food for herself. Discussed strategies for coping and continuing on positive path. She ends with Andrew, the trauma therapist, next week and will be transferring to a new trauma therapist. Mental Status: Mood: positive Affect: mood-congruent Thoughts/Associations:goal directed Suicidal/Homicidal Ideation: None expressed or evidenced Other Observations: None Therapy Focus Mood/affect regulation MEDICATIONS: Per medical record: Current Outpatient Prescriptions: buPROPion XL (WELLBUTRIN XL) 300 mg 24 hr tablet Take 1 tablet by mouth once daily. Swab (NO-STING SKIN-PREP) swab 1 application once daily as needed (prior to attaching TENS unit pads). TENS unit and electrodes cmpk Use as instructed. Drospirenone-Ethinyl Estradiol 3-0.02 mg per tablet Take 1 tablet by mouth once daily. [place]-3 Fatty Acids (OMEGA 3) 550 mg ORAL Cap Take one(1) tablet daily. No current facility-administered medications for this visit. Psychiatric Medication Issues: No change from previous appointment DIAGNOSIS: Diagnosis: MO PTSD Anorexia Treatment Modality/Interventions: Cognitive Behavioral TREATMENT ASSESSMENT/PROGRESS: Positive thinking, was able to cope effectively this weekend with ED thoughts well, she reported TREATMENT PLAN/GOALS: Continue in therapy focusing on CBT for anxiety management and mindful eating. Next appointment: 1 week Sanchez Wood PSYD PROGRESS Observed: 10/24/2017 Status: COMPLETED Source: [place] 2:33 PM [facility] REPOSITORY HNO ID: [id number] Author: Sanchez Mccullough Service: (none) Author Type: Psychologist Type: Progress Notes Filed: 10/30/2017 4:55 PM Note Text: [facility] Progress Note Marlene Carballo 10/24/2017 [id number] Provider: Sanchez Wood PSYD CPT Code: 37131 Psychotherapy 38-52 minutes Time: Approximately 45 minutes was spent in therapy. Parties Present: Patient Patient Presentation/Concerns: Marlene indicated that she was able to follow a meal plan for a few days, which resulted in an increase in energy, ability to think clearly and reduction of pain. She stated that the increase in food helped significantly with clearer thinking. Her birthday is this . She stated making plans to prepare for the negative mood that may follow eating this weekend (write herself a letter). Also, have some specific food options available/planned if she needs a snack as it is difficult to remember in the moment. She will be transferring to a different trauma therapist as Andrew is leaving. Extensive discussion about mindfulness and how it can be helpful to coping with feelings about food and knowing how much to eat. Mental Status: Mood: neutral Affect: mood-congruent Thoughts/Associations:goal directed Suicidal/Homicidal Ideation: None expressed or evidenced Other Observations: None Therapy Focus Mood/affect regulation MEDICATIONS: Per medical record: Current Outpatient Prescriptions: buPROPion XL (WELLBUTRIN XL) 300 mg 24 hr tablet Take 1 tablet by mouth once daily. Swab (NO-STING SKIN-PREP) swab 1 application once daily as needed (prior to attaching TENS unit pads). TENS unit and electrodes cmpk Use as instructed. Drospirenone-Ethinyl Estradiol 3-0.02 mg per tablet Take 1 tablet by mouth once daily. [place]-3 Fatty Acids (OMEGA 3) 550 mg ORAL Cap Take one(1) tablet daily. No current facility-administered medications for this visit. Psychiatric Medication Issues: No change from previous appointment DIAGNOSIS: MO PTSD Anorexia Treatment Modality/Interventions: Cognitive Behavioral TREATMENT ASSESSMENT/PROGRESS: Marlene indicated great progress in her ability to think clearer. Her mood was brighter today. She was able to put plans to eat more into place this week. TREATMENT PLAN/GOALS: Continue in therapy focusing on affect management, mindful eating, following a meal plan. Next appointment: 2 weeks Sanchez Wood PSYD XR HIP GREGG 5V PEL+ Observed: 10/07/2017 Status: F Source: [place] AP/LAT EA HIP 12:11 PM [facility] REPOSITORY * * *Final Report* * * DATE OF EXAM: Oct 07 2017 12:11PM WRX [id number] - XR HIP GREGG 5V PEL+ AP/LAT EA HIP / PROCEDURE REASON: multiple diagnoses * * * * Physician Interpretation * * * * PROCEDURE: Pelvis and bilateral hips INDICATION: Pain in right hip Pain in left hip . TECHNIQUE: XR HIP GREGG 5V PEL+ AP/LAT EA HIP COMPARISON: None FINDINGS: No acute fractures or dislocations are seen. There is mild/moderate superior hip joint space narrowing with minimal associated spur formation. No evidence for osteonecrosis. Sacroiliac joints and symphysis pubis are within normal limits. No soft tissue abnormality. IMPRESSION: Mild bilateral hip osteoarthrosis Kitchen Utility Associate: PSCB Transcribe Date/Time: Oct 07 2017 6:58P Dictated by : SAGE KOENIG MD This examination was interpreted and the report reviewed and electronically signed by: SAGE KOENIG MD on Oct 07 2017 6:59PM EST [id number] Observed: 10/07/2017 Status: COMPLETED Source: [place] 12:04 PM [facility] REPOSITORY HNO ID: [id number] Author: Alsion (Rt) Mary Barraza Service: (none) Author Type: Overhauler Type: Progress Notes Filed: 10/07/2017 12:13 PM Note Text: Radiology Service Progress Note PATIENT NAME: Marlene Carballo DATE OF SERVICE: October 07, 2017 TIME: 12:04 PM PATIENT IDENTITY VERIFICATION COMPLETED USING TWO (2) METHODS: Patient confirmed name verbally and Date of . PATIENT GENDER DATA: Female. status: : No status: NO. PATIENT RELEVANT IMPLANT DATA REVIEWED: Not Applicable RADIOLOGY DEPARTMENT: General X-ray: Exam(s) Completed: Pelvis X-Ray: Pelvis with Hip Bilateral PERIPHERAL IV DATA: Not applicable SIGNED BY: RT Amanda October 07, 2017 12:04 PM CBC AND DIFFERENTIAL Collected: 10/07/2017 Status: F Source: [place] 11:22 AM [facility] REPOSITORY TYPE CODE TESTS RESULT OUT OF REFERENCE UNITS RANGE LAB WBC 3.70-11.00 k/uL WBC 6.59 LAB RBC 3.90-5.20 m/uL RBC 3.91 LAB HGB 11.5-15.5 g/dL Low Hemoglobin 11.4 LAB HCT 36.0-46.0 % Hematocrit 36.7 LAB MCV 80.0-100.0 fL MCV 93.9 LAB MCH 26.0-34.0 pG MCH 29.2 LAB MCHC 30.5-36.0 g/dL MCHC 31.1 LAB RDWCV 11.5-15.0 % RDW-CV 13.2 LAB PLTCT 150-400 k/uL Platelet Count 306 LAB MPV 9.0-12.7 fL MPV 11.0 LAB ANEUT % Neut% 64.3 LAB AANEUT 1.45-7.50 k/uL Abs Neut 4.22 LAB ALYMP % Lymph% 29.6 LAB AALYMP 1.00-4.00 k/uL Abs Lymph 1.95 LAB AMONO % Emery% 5.0 LAB AAMONO <0.87 k/uL Abs Emery 0.33 LAB AEOS % Eosin% 0.8 LAB AAEOS <0.46 k/uL Abs Eosin 0.05 LAB ABASO % Baso% 0.3 LAB AABASO <0.11 k/uL Abs Baso <0.03 LAB AUNRBC 0 /100 WBC NRBCs 0.0 LAB ABNRBC <0.01 k/uL Absolute nRBC <0.01 LAB DTYP DTYPE Auto Diff Performed By: #### CBCDIF, CMP, CRP, FERR, VITD, WSR #### [facility] [address] [place], [place] [address] COMP METABOLIC PANEL Collected: 10/07/2017 Status: F Source: [place] 11:22 AM [facility] REPOSITORY TYPE CODE TESTS RESULT OUT OF REFERENCE UNITS RANGE LAB TP 6.3-8.0 g/dL Protein, Total 7.5 LAB ALB 3.9-4.9 g/dL Albumin 4.4 LAB CA 8.5-10.2 mg/dL Calcium, Total 9.6 LAB TBIL 0.2-1.3 mg/dL Bilirubin, Total 0.4 LAB ALKP 32-117 U/L Alkaline Phosphatase 35 LAB AST 13-35 U/L AST 21 LAB GLU 74-99 mg/dL Glucose 92 Result Comment: The [place] [employer] (ADA) provides guidance for cutoff values for fasting glucose and random glucose. The ADA defines fasting as no caloric intake for at least 8 hours. Fas ting plasma glucose results between 100 to 125 mg/dL indicate increased risk for diabetes (prediabetes). Fasting plasma glucose results greater than or equal to 126 mg/dL meet the criteria for diagnosis of diabetes. In the absence of unequivocal hyperglycemia, results should be confirmed by repeat testing. In a patient with classic symptoms of hyperglycemia or hyperglycemic crisis, random plasma glucose results greater than or equal to 200 mg/dL meet the criteria for diagnosis of diabetes. Reference: Standards of Medical Care in Diabetes 2016, [place] [employer] Association. Diabetes Care. 2016.39(Suppl 1). LAB BUN 7-21 mg/dL BUN 10 LAB CRET 0.58-0.96 mg/dL Creatinine 0.80 LAB NA 136-144 mmol/L Sodium 137 LAB K 3.7-5.1 mmol/L Potassium 4.3 LAB CL 97-105 mmol/L Chloride 101 LAB CO2 22-30 mmol/L CO2 24 LAB AGAP 9-18 mmol/L Anion Gap 12 LAB ALT 7-38 U/L ALT 16 LAB GFRAA eGFR- Amer. >60 LAB GFRNAA . eGFR-All Other Races >60 Result Comment: eGFR (Estimated GFR) Units of measure: mL/min/1.73 meters squared eGFR is derived from the reexpressed MDRD Study equation using the following parameters: serum creatinine, age, gender and race. The creatinine assay has been calibrated to be traceable to IDMS. An eGFR <60 mL/min/1.73m2 for >3 months is consistent with chronic kidney disease. Refer to KDOQI guidelines for clinical interpretation. In patients with unstable renal function, e.g. those with acute kidney injury, the eGFR may not accurately reflect actual GFR. Performed By: #### CBCDIF, CMP, CRP, FERR, VITD, WSR #### [facility] [address] [place] [address] C-REACTIVE PROTEIN Collected: 10/07/2017 Status: F Source: [place] 11:22 [facility] REPOSITORY TYPE CODE TESTS RESULT OUT OF REFERENCE UNITS RANGE LAB CRP <0.9 mg/dL C-Reactive 0.4 Protein Performed By: #### CBCDIF, CMP, CRP, FERR, VITD, WSR #### [place] [address] FERRITIN Collected: 10/07/2017 Status: F Source: [place] 11:22 [facility] REPOSITORY TYPE CODE TESTS RESULT OUT OF REFERENCE UNITS RANGE LAB FERR 14.7-205.1 ng/mL Ferritin 52.9 Performed By: #### CBCDIF, CMP, CRP, FERR, VITD, WSR #### [place] [address] VITAMIN D 25 HYDROXY Collected: 10/07/2017 Status: F Source: [place] 11:22 [facility] REPOSITORY TYPE CODE TESTS RESULT OUT OF REFERENCE UNITS RANGE LAB VITD 31.0-80.0 ng/mL Vitamin D 25 39.4 Hydroxy Result Comment: Classification of 25 [place] Vitamin D status: Insufficiency/Moderate Deficiency: < or = 30 ng/mL Sufficiency/Optimal Levels: 31 to 80 ng/mL Toxicity: > 100 ng/mL Test performed by chemiluminescent immunoassay. Performed By: #### CBCDIF, CMP, CRP, FERR, VITD, WSR #### [facility] [address] [place] [address] SED RATE WESTERGREN Collected: 10/07/2017 Status: F Source: [place] 11:22 [facility] REPOSITORY TYPE CODE TESTS RESULT OUT OF REFERENCE UNITS RANGE LAB WSR 0-20 mm/hr Sed Rate High Westergren 28 Performed By: #### CBCDIF, CMP, CRP, FERR, VITD, WSR #### [facility] [place] [address] PROGRESS Observed: 10/07/2017 Status: COMPLETED Source: [place] 10:50 AM [facility] REPOSITORY O ID: [id number] Author: Radha Chahal (Alannah) Jax Service: (none) Author Type: Nurse Practitioner Type: Progress Notes Filed: 10/07/2017 12:29 PM Note Text: Chief Complaint Patient presents with: Recheck: weight HPI Marlene Carballo is a 51 year old female who presents here today for Above Complaints, weight check, H/o eating disorder,, new concern, bilateral hip pain.Continues to follow with Dr. Mccullough and Psychiatrist- continues with Wellbutrin. Weight is stable, trying to lose weight, restricting. 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 Fatigue: Always tired despite adequate sleep. 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 Last 3 Encounter Wt Readings: Date: Wt: 10/07/2017 59 kg (130 lb) 08/02/2017 59.2 kg (130 lb 9.6 oz) 05/23/2017 58.1 kg (128 lb) Hip pain: points to anterior aspect both thighs, groin, onset insidious, present off and on for several months, worse this past month. Wakes her from sleep. Describes as achy, worse with position changes such as seated to walking. + Pain with weight bearing. Denies previous hip injury or trauma. Denies any new or unusual activities/exercises. Pain at night is both lateral hips and anterior groin, pointing to just below iliac crest. No swelling or skin discoloration. Rating pain 4 out of 10, can be as bad as 6-7 out of 10 at night. Treats with occasional Motrin 600 mg which helps. Past medical history, appointments, medications, allergies reviewed. Previous Medical History PAST MEDICAL HISTORY Diagnosis Date - Anorexia nervosa, restricting type - Anxiety - Ascending aorta dilation (HCC) 3.5 cm - Cervical disc disease C6-7 - Eating disorder, unspecified - Esophageal reflux - Lung nodule right - Major depressive disorder, recurrent episode, mild (HCC) - PTSD (post-traumatic stress disorder) - Snoring Previous Surgical History PAST SURGICAL HISTORY Procedure Laterality Date - LAMINECTOMY,CERVICAL 03/14/12 Laminectomy, cervical, diskectomy with fusion. - LAPAROSCOPIC CHOLEYCYSTECTOMY 1996 Cholecystectomy, lap - LIGATE FALLOPIAN TUBE 2001 Tubal ligation - REPAIR UMBILICAL NICA,5+Y/O,REDUC 06/11/2007 Simple Family History FAMILY HISTORY Problem Relation Age of Onset - Hypertension Mother - Cancer Maternal Grandmother Stomach - Cancer Paternal Grandmother COPD - Alcohol/Drug Maternal Grandfather - Ischemic Heart Disease Maternal Grandfather - Hypertension Maternal Grandfather - Hypertension Brother - Lung cancer [OTHER] Paternal Grandfather - pancreatic ca [OTHER] Paternal Grandfather 4 MGM siblings and patient's cousins. Patient Allergies ALLERGIES No Known Allergies Current Medications Current Outpatient Prescriptions on File Prior to Visit: buPROPion XL (WELLBUTRIN XL) 300 mg 24 hr tablet Take 1 tablet by mouth once daily. Swab (NO-STING SKIN-PREP) swab 1 application once daily as needed (prior to attaching TENS unit pads). TENS unit and electrodes cmpk Use as instructed. Drospirenone-Ethinyl Estradiol 3-0.02 mg per tablet Take 1 tablet by mouth once daily. [place]-3 Fatty Acids (OMEGA 3) 550 mg ORAL Cap Take one(1) tablet daily. No current facility-administered medications on file prior to visit. Social History Social History Marital status: Spouse name: Isabelle Years of education: Number of children: 4 Occupational History Occupation Employer Comment [employer]* [employer] * Social History Main Topics Smoking status: Never Smoker Smokeless tobacco: Never Used Alcohol use: No Drug use: No Sexual activity: Yes Partners with: Male EXAM: BP 102/70 (BP Site: Left Arm, BP Position: Sitting, BP Cuff Size: Regular Adult) Pulse 60 Temp 36.8 ?C (98.2 ?F) (Tympanic) Resp 16 Wt 59 kg (130 lb) BMI 22.67 kg/m? General Appearance: Well appearing, alert, in no acute distress, well-hydrated, well nourished., slow movement from chair to exam table, winces and grabs at right thigh. Skin: Skin color, texture, turgor normal, no suspicious rashes or lesions. Neck: Supple, no adenopathy; thyroid symmetric, normal size, no bruits. Back:no pain to palpation of vertebrae, good flexion and extension, good range of motion, no muscle tenderness, motor and sensory appear to be normal Lungs: Lungs clear to auscultation. No wheezing, rhonchi, rales. Musculoskeletal: No joint swelling, deformity, or tenderness, Positive: pain with flexion, internal/external rotation of both hips R>L. + TTP lateral greater trochanter Neurologic: Gait normal. Sensation grossly intact. Health Maintenance List HPV EVERY 5 YEARS due on 10/27/1997 DTAP,TDAP,TD(2 - Tdap) due on 10/13/2012 PAP EVERY 5 YEARS due on 06/27/2018 MAMMOGRAM due on 09/14/2018 DIABETES SCREEN due on 03/21/2020 LIPID SCREEN due on 02/01/2021 INFLUENZA Completed ASSESSMENT/PLAN: 1. Bilateral hip pain - ICD9: 719.45, ICD10: M25.551, M25.552 (primary diagnosis) - XR HIP BILAT 5V PEL/AP/LAT EACH HIP - CONSULT TO PHYSICAL THERAPY - SED RATE WESTERGREN - C-REACTIVE PROTEIN (CRP) 2. Vitamin D deficiency - ICD9: 268.9, ICD10: E55.9 - VITAMIN D 25 HYDROXY 3. Fatigue, unspecified type - ICD9: 780.79, ICD10: R53.83 - CBC + DIFF - FERRITIN BLD - VITAMIN D 25 HYDROXY - COMP METABOLIC PANEL 4. Eating disorder, unspecified - ICD9: 307.50, ICD10: F50.9 - Stable - Follow up in 2 months, continue with counseling Radha Camara MSN SURVEY AND MAPPING TECHNICIAN.LUMP MACHINE OPERATOR CNOV Observed: 10/07/2017 Status: COMPLETED Source: [place] 10:40 AM [facility] REPOSITORY Office Visit (FAMPWS) MARLENE CARBALLO ([id number]) 1965 F Date Time Provider Department 10/07/17 10:40 AM RADHA CAMARA (AGRICULTURAL TECHNICIAN) FAMPWS During your visit today, we recorded the following information about you: Temperature Pulse Respiration Blood pressure 98.2 degrees 60/minute 16/minute 102/70 Weight 59 kg Radha Camara MSN SURVEY AND MAPPING TECHNICIAN.LUMP MACHINE OPERATOR 10/07/2017 12:29 PM Signed Chief Complaint Patient presents with: Recheck: weight HPI Marlene Carballo is a 51 year old female who presents here today for Above Complaints, weight check, H/o eating disorder,, new concern, bilateral hip pain.Continues to follow with Dr. Mccullough and Psychiatrist- continues with Wellbutrin. Weight is stable, trying to lose weight, restricting. 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 Fatigue: Always tired despite adequate sleep. 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 Last 3 Encounter Wt Readings: Date: Wt: 10/07/2017 59 kg (130 lb) 08/02/2017 59.2 kg (130 lb 9.6 oz) 05/23/2017 58.1 kg (128 lb) Hip pain: points to anterior aspect both thighs, groin, onset insidious, present off and on for several months, worse this past month. Wakes her from sleep. Describes as achy, worse with position changes such as seated to walking. + Pain with weight bearing. Denies previous hip injury or trauma. Denies any new or unusual activities/exercises. Pain at night is both lateral hips and anterior groin, pointing to just below iliac crest. No swelling or skin discoloration. Rating pain 4 out of 10, can be as bad as 6-7 out of 10 at night. Treats with occasional Motrin 600 mg which helps. Past medical history, appointments, medications, allergies reviewed. Previous Medical History PAST MEDICAL HISTORY Diagnosis Date - Anorexia nervosa, restricting type - Anxiety - Ascending aorta dilation (HCC) 3.5 cm - Cervical disc disease C6-7 - Eating disorder, unspecified - Esophageal reflux - Lung nodule right - Major depressive disorder, recurrent episode, mild (HCC) - PTSD (post-traumatic stress disorder) - Snoring Previous Surgical History PAST SURGICAL HISTORY Procedure Laterality Date - LAMINECTOMY,CERVICAL 03/14/12 Laminectomy, cervical, diskectomy with fusion. - LAPAROSCOPIC CHOLEYCYSTECTOMY 1996 Cholecystectomy, lap - LIGATE FALLOPIAN TUBE 2001 Tubal ligation - REPAIR UMBILICAL NICA,5+Y/O,REDUC 06/11/2007 Simple Family History FAMILY HISTORY Problem Relation Age of Onset - Hypertension Mother - Cancer Maternal Grandmother Stomach - Cancer Paternal Grandmother COPD - Alcohol/Drug Maternal Grandfather - Ischemic Heart Disease Maternal Grandfather - Hypertension Maternal Grandfather - Hypertension Brother - Lung cancer [OTHER] Paternal Grandfather - pancreatic ca [OTHER] Paternal Grandfather 4 MGM siblings and patient's cousins. Patient Allergies ALLERGIES No Known Allergies Current Medications Current Outpatient Prescriptions on File Prior to Visit: buPROPion XL (WELLBUTRIN XL) 300 mg 24 hr tablet Take 1 tablet by mouth once daily. Swab (NO-STING SKIN-PREP) swab 1 application once daily as needed (prior to attaching TENS unit pads). TENS unit and electrodes cmpk Use as instructed. Drospirenone-Ethinyl Estradiol 3-0.02 mg per tablet Take 1 tablet by mouth once daily. [place]-3 Fatty Acids (OMEGA 3) 550 mg ORAL Cap Take one(1) tablet daily. No current facility-administered medications on file prior to visit. Social History Social History Marital status: Spouse name: Isabelle Years of education: Number of children: 4 Occupational History Occupation Employer Comment Labor and Delivery* [employer]* Social History Main Topics Smoking status: Never Smoker Smokeless tobacco: Never Used Alcohol use: No Drug use: No Sexual activity: Yes Partners with: Male EXAM: BP 102/70 (BP Site: Left Arm, BP Position: Sitting, BP Cuff Size: Regular Adult) Pulse 60 Temp 36.8 ?C (98.2 ?F) (Tympanic) Resp 16 Wt 59 kg (130 lb) BMI 22.67 kg/m? General Appearance: Well appearing, alert, in no acute distress, well-hydrated, well nourished., slow movement from chair to exam table, winces and grabs at right thigh. Skin: Skin color, texture, turgor normal, no suspicious rashes or lesions. Neck: Supple, no adenopathy; thyroid symmetric, normal size, no bruits. Back:no pain to palpation of vertebrae, good flexion and extension, good range of motion, no muscle tenderness, motor and sensory appear to be normal Lungs: Lungs clear to auscultation. No wheezing, rhonchi, rales. Musculoskeletal: No joint swelling, deformity, or tenderness, Positive: pain with flexion, internal/external rotation of both hips R>L. + TTP lateral greater trochanter Neurologic: Gait normal. Sensation grossly intact. Health Maintenance List HPV EVERY 5 YEARS due on 10/27/1997 DTAP,TDAP,TD(2 - Tdap) due on 10/13/2012 PAP EVERY 5 YEARS due on 06/27/2018 MAMMOGRAM due on 09/14/2018 DIABETES SCREEN due on 03/21/2020 LIPID SCREEN due on 02/01/2021 INFLUENZA Completed ASSESSMENT/PLAN: 1. Bilateral hip pain - ICD9: 719.45, ICD10: M25.551, M25.552 (primary diagnosis) - XR HIP BILAT 5V PEL/AP/LAT EACH HIP - CONSULT TO PHYSICAL THERAPY - SED RATE WESTERGREN - C-REACTIVE PROTEIN (CRP) 2. Vitamin D deficiency - ICD9: 268.9, ICD10: E55.9 - VITAMIN D 25 HYDROXY 3. Fatigue, unspecified type - ICD9: 780.79, ICD10: R53.83 - CBC + DIFF - FERRITIN BLD - VITAMIN D 25 HYDROXY - COMP METABOLIC PANEL 4. Eating disorder, unspecified - ICD9: 307.50, ICD10: F50.9 - Stable - Follow up in 2 months, continue with counseling Radha Camara, MSN SURVEY AND MAPPING TECHNICIAN.LUMP MACHINE OPERATOR Referring Provider: RADHA CAMARA (AGRICULTURAL TECHNICIAN) [[id number]] Allergies As of Date: 10/07/2017 (No Known Allergies) Date Reviewed: 10/07/2017 Reviewed by: Karrie Wells LPN - Fully Assessed Reason for Visit: Recheck [92] Cmt: weight Primary Visit Diagnosis:Bilateral hip pain [M25.551, M25.552] Other Visit Diagnoses:Vitamin D deficiency [E55.9] Fatigue, unspecified type [R53.83] Eating disorder, unspecified [F50.9] Order(s):CBC + DIFF [SQCBCDIF] Order #: [id number] FUTURE FERRITIN BLD [SQFERR] Order #: [id number] FUTURE VITAMIN D 25 HYDROXY [SQVITD] Order #: [id number] FUTURE COMP METABOLIC PANEL [SQCMP] Order #: [id number] FUTURE XR HIP BILAT 5V PEL/AP/LAT EACH HIP [8323747] Order #: [id number] FUTURE CONSULT TO PHYSICAL THERAPY [9032] Order #: [id number]: 1 SED RATE WESTERGREN [SQWSR] Order #: [id number] FUTURE C-REACTIVE PROTEIN (CRP) [SQCRP] Order #: [id number] FUTURE Prescriptions as of 10/07/2017 Sig: BUPROPION XL 300 MG 24 HR TAB Take 1 tablet by mouth once d* SWAB 1 application once daily as n* TENS UNIT AND ELECTRODES COMB* Use as instructed. DROSPIRENONE-ETHINYL ESTRADIO* Take 1 tablet by mouth once d* * FLAXSEED OIL 1000 MG CAPSULE Take one(1) tablet daily. Problem List As Of Date 10/07/2017 Noted Resolved Eating disorder [F50.9] INVALID FOR* More... UMBILICAL HERNIA [K42.9] INVALID FOR* Osteopenia [M85.80] INVALID FOR* PVC's (premature ventricular contractions) [I49*INVALID FOR* Mitral prolapse [I34.1] INVALID FOR* Depression [F32.9] INVALID FOR* Cervicalgia [M54.2] INVALID FOR* PMDD (premenstrual dysphoric disorder) [F32.81] INVALID FOR* Cervical strain [S16.1XXA] INVALID FOR* DDD (degenerative disc disease), cervical [M50.*INVALID FOR* Ascending aorta dilatation (HCC) [I77.810] INVALID FOR* Eating disorder, unspecified [F50.9] Anxiety [F41.9] Major depressive disorder, recurrent episode, m* Anorexia nervosa, restricting type [F50.01] PTSD (post-traumatic stress disorder) [F43.10] Vitamin D deficiency [E55.9] INVALID FOR* Episcleritis of left eye [H15.102] INVALID FOR* Disposition: Return in about 2 months (around 12/07/2017). Follow-up and Disposition History Recorded Encounter Status:Closed by RADHA CAMARA LUMP MACHINE OPERATOR on 10/07/17 PROGRESS Observed: 10/03/2017 Status: COMPLETED Source: [place] 1:49 PM [facility] REPOSITORY HNO ID: [id number] Author: Sanchez Mccullough Service: (none) Author Type: Psychologist Type: Progress Notes Filed: 10/03/2017 1:52 PM Note Text: [facility] Progress Note Marlene Carballo 09/25/2017 [id number] Provider: Sanchez Wood PSYD CPT Code: 91977 Psychotherapy 38-52 minutes Time: Approximately 45 minutes was spent in therapy. Parties Present: Patient Patient Presentation/Concerns: Marlene indicated that she is restricting. She states fearing becoming out of control or overweight if she eats normally. Marlene indicated that it is easy for her to skip meals at work, which is contributing to the problem. Discussed in detail ways of addressing this dynamic. She is continually working through trauma and self blame. Often feels alone and needing more support. The eating disorder absorbs a great deal of her emotional energy. Using her recovery journal is helpful. Mental Status: Mood: depressed Affect: mood-congruent Thoughts/Associations:goal directed Suicidal/Homicidal Ideation: None expressed or evidenced Other Observations: None Therapy Focus Mood/affect regulation MEDICATIONS: Per medical record: Current Outpatient Prescriptions: buPROPion XL (WELLBUTRIN XL) 300 mg 24 hr tablet Take 1 tablet by mouth once daily. Swab (NO-STING SKIN-PREP) swab 1 application once daily as needed (prior to attaching TENS unit pads). TENS unit and electrodes cmpk Use as instructed. Drospirenone-Ethinyl Estradiol 3-0.02 mg per tablet Take 1 tablet by mouth once daily. [place]-3 Fatty Acids (OMEGA 3) 550 mg ORAL Cap Take one(1) tablet daily. No current facility-administered medications for this visit. Psychiatric Medication Issues: No change from previous appointment DIAGNOSIS: Diagnosis: MO PTSD Anorexia Treatment Modality/Interventions: Cognitive Behavioral TREATMENT ASSESSMENT/PROGRESS: Stable TREATMENT PLAN/GOALS: Continue in therapy focusing on affect management. Next appointment: 2 weeks Sanchez Wood PSYD PROGRESS Observed: 10/03/2017 Status: COMPLETED Source: [place] 12:04 PM [facility] [place] REPOSITORY HNO ID: [id number] Author: Sanchez Mccullough Service: (none) Author Type: Psychologist Type: Progress Notes Filed: 10/03/2017 1:20 PM Note Text: [facility] Progress Note Marlene Carballo 10/03/2017 [id number] Provider: Sanchez Wood PSYD CPT Code: 78364 Psychotherapy 38-52 minutes Time: Approximately 45 minutes was spent in therapy. Parties Present: Patient Patient Presentation/Concerns: Marlene indicated that her trauma therapist in [place], Andrew Lilly, is leaving his position. This was very difficult news for her as they have been working together for three years. Marlene has felt that she has needed more support. We discussed her options. I indicated that she may wish to explore a support group in [place] as well as transfer to another therapist at the [facility]. She stated that she will consider her options. Marlene is also anticipating an upcoming doctors' appointment in which she will get weighed. I encouraged her to do a BLIND WEIGHT as the numbers are triggering of eating disorder behaviors. Goal: to not skip meals. Mental Status: Mood: depressed Affect: mood-congruent Thoughts/Associations: Shut down Suicidal/Homicidal Ideation: None expressed or evidenced Other Observations: None Therapy Focus Mood/affect regulation MEDICATIONS: Per medical record: Current Outpatient Prescriptions: buPROPion XL (WELLBUTRIN XL) 300 mg 24 hr tablet Take 1 tablet by mouth once daily. Swab (NO-STING SKIN-PREP) swab 1 application once daily as needed (prior to attaching TENS unit pads). TENS unit and electrodes cmpk Use as instructed. Drospirenone-Ethinyl Estradiol 3-0.02 mg per tablet Take 1 tablet by mouth once daily. [place]-3 Fatty Acids (OMEGA 3) 550 mg ORAL Cap Take one(1) tablet daily. No current facility-administered medications for this visit. Psychiatric Medication Issues: No change from previous appointment DIAGNOSIS: MO PTSD Anorexia Treatment Modality/Interventions: Cognitive Behavioral TREATMENT ASSESSMENT/PROGRESS: Stable TREATMENT PLAN/GOALS: Continue in therapy focusing on affect management. 1) Goal: to not skip meals 2) Blind weights 3) Continue to focus on not responding to eating disorder thoughts 4) CBT coping skills Next appointment: 2 weeks Sanchez Wood PSYD PROGRESS Observed: 09/25/2017 Status: COMPLETED Source: [place] 10:58 AM [facility] REPOSITORY O ID: [id number] Author: Sanchez Mccullough Service: (none) Author Type: Psychologist Type: Progress Notes Filed: 09/25/2017 11:02 AM Note Text: [facility] Progress Note Marlene Carballo 09/18/2017 [id number] Provider: Sanchez Wood PSYD CPT Code: 64270 Psychotherapy 38-52 minutes Time: Approximately 45 minutes was spent in therapy. Parties Present: Patient Patient Presentation/Concerns: Marlene spoke about poor body image and eating disorder thoughts. She admitted to taking medication and drinking wine to numb out. She denied any suicidal thoughts or feelings. We discussed removing medication and wine. Also, discussed alternate ways of coping with the intensity of her feelings/eating disorder thougths in healthier ways. The thoughts are critical of herself, shaming and indicate a low self-worth. Mental Status: Mood: depressed Affect: mood-congruent Thoughts/Associations:goal directed Suicidal/Homicidal Ideation: None expressed or evidenced Other Observations: None Therapy Focus Mood/affect regulation MEDICATIONS: Per medical record: Current Outpatient Prescriptions: buPROPion XL (WELLBUTRIN XL) 300 mg 24 hr tablet Take 1 tablet by mouth once daily. Swab (NO-STING SKIN-PREP) swab 1 application once daily as needed (prior to attaching TENS unit pads). TENS unit and electrodes cmpk Use as instructed. Drospirenone-Ethinyl Estradiol 3-0.02 mg per tablet Take 1 tablet by mouth once daily. [place]-3 Fatty Acids (OMEGA 3) 550 mg ORAL Cap Take one(1) tablet daily. No current facility-administered medications for this visit. Psychiatric Medication Issues: No change from previous appointment DIAGNOSIS: MO PTSD Anorexia Treatment Modality/Interventions: Cognitive Behavioral TREATMENT ASSESSMENT/PROGRESS: Stable, admitted to numbing out with substances instead of using eating disorder TREATMENT PLAN/GOALS: Continue in therapy focusing on affect management, healthy coping skills, using a meal plan, not responding to eating disorder thoughts, agreed to a safety plan (verbally, call 911, go to ER, tell her ), remove substances from home. [place] effectively with trauma triggers. Next appointment: 2 weeks Sanchez Wood PSYD SCREENING MAMM (CAD), Observed: 09/14/2017 Status: F Source: [facility] 9:09 AM [facility] REPOSITORY [facility] Imaging Services [address] [place] [id number] SCREENING MAMM (CAD), BILAT MR#: [id number] Acct: [id number] Name: MARLENE CARBALLO Rep #: [id number] : 1965 F 51 From: Carlos Alberto Tobar MD PCP: Patric Mcbride MD Status: REG CLI Study: SCREENING MAMM (CAD), BILAT Date of Exam: 09/14/17 Exam# [id number] Ordering Dr: Mary Mar MD MAMMOGRAPHY - BILATERAL SCREENING 3-D ANTOINE SYNTHESIS REASON FOR EXAM: Female, 51 years old. Bilateral Screening 3-D tomosynthesis PERTINENT HISTORY: No significant family history. TECHNIQUE: 2-D mammograms and 3-D Antoine synthesis of the breast (s) were performed. CAD was performed. COMPARISON: August 19, 2015, July 09, 2014 FINDINGS: The breast composition is composed of scattered fibroglandular density. Scattered benign calcifications are seen. No dense spiculated masses or suspicious microcalcifications are identified. No architectural distortion is identified. There is no skin thickening or retraction. There has been no significant change since the prior study. BI/SCREENING MAMM (CAD), BILAT IMPRESSION: No mammographic signs of malignancy. Routine yearly mammograms recommended. ASSESSMENT CATEGORY: BIRADS Category 2: Benign. A letter regarding these results will be sent to the patient by the facility within 30 days. FOLLOW UP RECOMMENDATION: Yearly follow up mammogram recommended. (A) Approximately 10% of breast cancers are not detected by mammography. A normal mammogram should not delay biopsy of a clinically suspicious abnormality. Electronically Signed: Carlos Alberto Tobar MD at 18:04 EDT , Service support , CC: Mary Mar MD; Patric Mcbride MD Kitchen Utility Associate: Signed PROGRESS Observed: 09/12/2017 Status: COMPLETED Source: [place] 2:08 PM [facility] [place] REPOSITORY O ID: [id number] Author: Sanchez Mccullough Service: (none) Author Type: Psychologist Type: Progress Notes Filed: 09/19/2017 3:30 PM Note Text: [facility] Progress Note Marlene Carballo 09/12/2017 [id number] Provider: Sanchez Wood PSYD CPT Code: 16160 Psychotherapy 38-52 minutes Time: Approximately 45 minutes was spent in therapy. Parties Present: Patient Patient Presentation/Concerns: Marlene indicated that her mother visited. She processed her mother's passive aggressive statements that triggered Eating Disordered responses. She processed her response to her mother's visit. She indicated restricting several times this week/completley skipping meals. At her last weigh in, she had gained two pounds. She had difficulty committing today to not skipping meal times. Mental Status: Mood: neutral Affect: mood-congruent Thoughts/Associations:goal directed Suicidal/Homicidal Ideation: None expressed or evidenced Other Observations: Therapy Focus Mood/affect regulation MEDICATIONS: Per medical record: Current Outpatient Prescriptions: buPROPion XL (WELLBUTRIN XL) 300 mg 24 hr tablet Take 1 tablet by mouth once daily. Swab (NO-STING SKIN-PREP) swab 1 application once daily as needed (prior to attaching TENS unit pads). TENS unit and electrodes cmpk Use as instructed. Drospirenone-Ethinyl Estradiol 3-0.02 mg per tablet Take 1 tablet by mouth once daily. [place]-3 Fatty Acids (OMEGA 3) 550 mg ORAL Cap Take one(1) tablet daily. No current facility-administered medications for this visit. Psychiatric Medication Issues: No change from previous appointment DIAGNOSIS: MO PTSD Anorexia Treatment Modality/Interventions: Cognitive Behavioral TREATMENT ASSESSMENT/PROGRESS: Stable. Marlene indicated that she having difficulty not responding to the thought I want to lose weight Today, we talked about radical acceptance of meal plan. She agreed to try not to skip meals. Continue to work on letting go of Eating Disorder Thoughts. TREATMENT PLAN/GOALS: Continue in therapy focusing on affect management. CBT and DBT for anxiety management and food restriction. I left another message on Andrew Ata's [employer] machine. I would like to consult with him. I left my cell phone number Next appointment: 2 weeks Sanchez Wood PSYD PROGRESS Observed: 09/06/2017 Status: COMPLETED Source: [place] 9:35 AM [facility] REPOSITORY O ID: [id number] Author: Sanchez Mccullough Service: (none) Author Type: Psychologist Type: Progress Notes Filed: 09/06/2017 9:38 AM Note Text: [facility] Progress Note Marlene Carballo 08/29/2017 [id number] Provider: Sanchez Wood PSYD CPT Code: 50390 Psychotherapy 38-52 minutes Time: Approximately 45 minutes was spent in therapy. Parties Present: Patient Patient Presentation/Concerns: Marlene indicated that her mother is coming in two weeks. This was the primary topic. This triggers a lot of anxiety and trauma responses. She states questioning her feelings (ex. if she is blowing things out of proportion). A significant increase in eating disorder thoughts. She states still eating but restricting quite a bit when she can. States feeling like she wants to isolate and sleep to avoid thoughts. We discussed the challenges that occurred in the previous visit from her mother, how she handled them and coping skills she can utilize in this visit. Mental Status: Mood: neutral Affect: mood-congruent Thoughts/Associations:goal directed Suicidal/Homicidal Ideation: None expressed or evidenced Other Observations: None Therapy Focus Mood/affect regulation MEDICATIONS: Per medical record: Current Outpatient Prescriptions: buPROPion XL (WELLBUTRIN XL) 300 mg 24 hr tablet Take 1 tablet by mouth once daily. Swab (NO-STING SKIN-PREP) swab 1 application once daily as needed (prior to attaching TENS unit pads). TENS unit and electrodes cmpk Use as instructed. Drospirenone-Ethinyl Estradiol 3-0.02 mg per tablet Take 1 tablet by mouth once daily. [place]-3 Fatty Acids (OMEGA 3) 550 mg ORAL Cap Take one(1) tablet daily. No current facility-administered medications for this visit. Psychiatric Medication Issues: No change from previous appointment DIAGNOSIS: MO Anorexia PTSD Treatment Modality/Interventions: Cognitive Behavioral TREATMENT ASSESSMENT/PROGRESS: Continues to report a high level of distress from eating disorder thoughts (negative thoughts about self, self hate, feeling disgusted by her body etc). TREATMENT PLAN/GOALS: Continue in therapy focusing on affect management. 1) CBT and DBT skills for coping 2) She agreed to bring out her former meal plan and utilize it. Next appointment: 1 week Sanchez Wood PSYD PROGRESS Observed: 09/04/2017 Status: COMPLETED Source: [place] 1:57 PM [facility] REPOSITORY HNO ID: [id number] Author: Sanchez Mccullough Service: (none) Author Type: Psychologist Type: Progress Notes Filed: 09/10/2017 2:14 PM Note Text: [facility] Progress Note Marlene Carballo 09/04/2017 [id number] Provider: Sanchez Wood PSYD CPT Code: 15925 Psychotherapy 38-52 minutes Time: Approximately 45 minutes was spent in therapy. Parties Present: Patient Patient Presentation/Concerns: Marlene indicated that she is still struggling with Eating Disorder thoughts. Although we have talked many times about instituting an eating disorder plan, she states being unable to execute it. I inquired about a need to return to an IOP program. Discussed small steps she can take. Her mother is coming this weekend, which has triggered a lot of additional anxiety. Also, working at night, is impacting her sleep and eating schedule. She uses it as an opportunity not to eat/restrict. She stated that typically she can focus at work. This week the eating disorder thoughts were very present. Mental Status: Mood: neutral Affect: mood-congruent Thoughts/Associations:goal directed Suicidal/Homicidal Ideation: None expressed or evidenced Other Observations: Therapy Focus Mood/affect regulation MEDICATIONS: Per medical record: Current Outpatient Prescriptions: buPROPion XL (WELLBUTRIN XL) 300 mg 24 hr tablet Take 1 tablet by mouth once daily. Swab (NO-STING SKIN-PREP) swab 1 application once daily as needed (prior to attaching TENS unit pads). TENS unit and electrodes cmpk Use as instructed. Drospirenone-Ethinyl Estradiol 3-0.02 mg per tablet Take 1 tablet by mouth once daily. [place]-3 Fatty Acids (OMEGA 3) 550 mg ORAL Cap Take one(1) tablet daily. No current facility-administered medications for this visit. Psychiatric Medication Issues: No change from previous appointment DIAGNOSIS: MO Anorexia PTSD Treatment Modality/Interventions: Cognitive Behavioral TREATMENT ASSESSMENT/PROGRESS: Increase in frequency and intensity of eating disorder thoughts. More urge to isolate and sleep. TREATMENT PLAN/GOALS: Continue in therapy focusing on affect management. CBT for anorexia. I asked Marlene to consider returning to [facility] if thoughts/behaviors worsen. Next appointment: 2 weeks Sanchez Wood PSYD PROGRESS Observed: 08/22/2017 Status: COMPLETED Source: [place] 10:59 AM [facility] REPOSITORY HNO ID: [id number] Author: Sanchez Mccullough Service: (none) Author Type: Psychologist Type: Progress Notes Filed: 08/28/2017 3:18 PM Note Text: [facility] Progress Note Marlene Carabllo 08/22/2017 [id number] Provider: Sanchez Wood PSYD CPT Code: 58703 Psychotherapy 38-52 minutes Time: Approximately 45 minutes was spent in therapy. Parties Present: Patient Patient Presentation/Concerns: Marlene had contacted me on Saturday. She was struggling with eating disorder thoughts. We outlined some of her options at that time. Today, we reviewed how they worked. She stated that getting out of the house, going for a walk, connecting with her children was helpful in the moment. When feeling down, she stated that she doesn't think of other options besides listening to eating disordered thoughts. She brought in her recovery journal today. It is filled with creative things that have been helpful in the past. She had not brought this in before. Marlene also completed the card I gave her last week about Actions to Support Her Recovery Mental Status: Mood: depressed, sad Affect: mood-congruent Thoughts/Associations:goal directed, ruminative Suicidal/Homicidal Ideation: None expressed or evidenced Other Observations: Therapy Focus Mood/affect regulation MEDICATIONS: Per medical record: Current Outpatient Prescriptions: buPROPion XL (WELLBUTRIN XL) 300 mg 24 hr tablet Take 1 tablet by mouth once daily. Swab (NO-STING SKIN-PREP) swab 1 application once daily as needed (prior to attaching TENS unit pads). TENS unit and electrodes cmpk Use as instructed. Drospirenone-Ethinyl Estradiol 3-0.02 mg per tablet Take 1 tablet by mouth once daily. [place]-3 Fatty Acids (OMEGA 3) 550 mg ORAL Cap Take one(1) tablet daily. No current facility-administered medications for this visit. Psychiatric Medication Issues: No change from previous appointment DIAGNOSIS: MO Anorexia Treatment Modality/Interventions: Cognitive Behavioral TREATMENT ASSESSMENT/PROGRESS: Stable. Marlene was very shut down today. She spoke very little and mostly when prompted. TREATMENT PLAN/GOALS: Continue in therapy focusing on affect management. 1) Do another page in her recovery journal 2) Outline five options she can do instead of listening to eating disorder Next appointment: 2 weeks Sanchez Wood PSYD PROGRESS Observed: 08/15/2017 Status: COMPLETED Source: [place] 2:58 PM [facility] REPOSITORY HNO ID: [id number] Author: Sanchez Mccullough Service: (none) Author Type: Psychologist Type: Progress Notes Filed: 08/28/2017 12:54 PM Note Text: [facility] Progress Note Marlene Carballo 08/15/2017 [id number] Provider: Sanchez Wood PSYD CPT Code: 78173 Psychotherapy 38-52 minutes Time: Approximately 45 minutes was spent in therapy. Parties Present: Patient Patient Presentation/Concerns: Marlene indicated that I she is struggling with the eating disorder thoughts. She wants to isolate and sleep. Her constant thought is to lose weight, If I lose weight everything will be better. Marlene was very shut down during the session. She did not very much during this session. We spoke about some possible support groups she could attend in [place]. She committed to working on staying connected and filling out the card about actions to support her recovery. Mental Status: Mood: neutral Affect: mood-congruent Thoughts/Associations:goal directed Suicidal/Homicidal Ideation: None expressed or evidenced Other Observations: Therapy Focus Mood/affect regulation MEDICATIONS: Per medical record: Current Outpatient Prescriptions: buPROPion XL (WELLBUTRIN XL) 300 mg 24 hr tablet Take 1 tablet by mouth once daily. Swab (NO-STING SKIN-PREP) swab 1 application once daily as needed (prior to attaching TENS unit pads). TENS unit and electrodes cmpk Use as instructed. Drospirenone-Ethinyl Estradiol 3-0.02 mg per tablet Take 1 tablet by mouth once daily. [place]-3 Fatty Acids (OMEGA 3) 550 mg ORAL Cap Take one(1) tablet daily. No current facility-administered medications for this visit. Psychiatric Medication Issues: No change from previous appointment DIAGNOSIS: MO PTSD Anorexia Treatment Modality/Interventions: Cognitive Behavioral TREATMENT ASSESSMENT/PROGRESS: Increase in Eating Disorder thoughts Depressed affect TREATMENT PLAN/GOALS: 1) Fill out the Recovery plan worksheet 2) CBT for coping Next appointment: 1 week Sanchez Wood PSYD PROGRESS Observed: 08/07/2017 Status: COMPLETED Source: [place] 10:05 AM [facility] REPOSITORY O ID: [id number] Author: Sanchez Da Silva Service: (none) Author Type: Psychologist Type: Progress Notes Filed: 08/22/2017 12:43 PM Note Text: [facility] Progress Note Marlene Carballo 08/07/2017 [id number] Provider: Sanchez Wood PSYD CPT Code: 25894 Psychotherapy 38-52 minutes Time: Approximately 45 minutes was spent in therapy. Parties Present: Patient Patient Presentation/Concerns: Marlene was very shut down today. Andrew, her trauma therapist has not returned my call yet. She saw him yesterday. They are continuing to do the exercises in session rather than on her own as it is too triggering/difficult for her to do alone. She stated that she had taken a Vicodin while doing one of the exercises at home. She agreed to put away/get rid of the Vicodin and any other self harm things. 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 Mental Status: Mood: neutral Affect: mood-congruent Thoughts/Associations:goal directed Suicidal/Homicidal Ideation: None expressed or evidenced Other Observations: None Therapy Focus Mood/affect regulation MEDICATIONS: Per medical record: Current Outpatient Prescriptions: buPROPion XL (WELLBUTRIN XL) 300 mg 24 hr tablet Take 1 tablet by mouth once daily. Swab (NO-STING SKIN-PREP) swab 1 application once daily as needed (prior to attaching TENS unit pads). TENS unit and electrodes cmpk Use as instructed. Drospirenone-Ethinyl Estradiol 3-0.02 mg per tablet Take 1 tablet by mouth once daily. [place]-3 Fatty Acids (OMEGA 3) 550 mg ORAL Cap Take one(1) tablet daily. No current facility-administered medications for this visit. Psychiatric Medication Issues: No change from previous appointment DIAGNOSIS: MO PTSD Anoerxia Treatment Modality/Interventions: Cognitive Behavioral TREATMENT ASSESSMENT/PROGRESS: Shut down, restricting, indicated urges to self harm (only did once with Vicodin) TREATMENT PLAN/GOALS: Continue in therapy focusing on self- care, affect management and trauma recovery. 1) Call Andrew again to connect and review treatment progress and goals 2) Meal plan from dietitian when she was previously in treatment 3) Connect with others when feeling down 4) Utilize coping skills from previous IOP program Next appointment: 1 week Sanchez Wood PSYD PROGRESS Observed: 08/02/2017 Status: COMPLETED Source: [place] 10:01 AM [facility] REPOSITORY O ID: [id number] Author: Radha Chahal (Agata Camara Service: (none) Author Type: Nurse Practitioner Type: Progress Notes Filed: 08/02/2017 2:15 PM Note Text: Chief Complaint Patient presents with: Recheck: 2 month F/U HPI Marlene Carballo is a 51 year old female who presents here today for routine follow up eating disorder. She continues to follow with Dr. Mccullough every other week. Not following any meal plan at this time. States feeling pretty good. Admits she would be at about 70% of her meal plan if she were to monitor. She is exercising by walking. 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 -Family stress-better, one son moved back home, going to school artificial fly tier and working as well. Neck pain: -uses spices for pain-tumeric, black pepper, parth, cyanne and cinnamon, mixed in applesauce. Uses as an antiinflammatory. Tens unit prn. Last 3 Encounter Wt Readings: Date: Wt: 08/02/2017 59.2 kg (130 lb 9.6 oz) 05/23/2017 58.1 kg (128 lb) 03/21/2017 58.1 kg (128 lb) The ROS is otherwise negative. Past medical history, appointments, medications, allergies reviewed. Patient Allergies ALLERGIES No Known Allergies Current Medications Current Outpatient Prescriptions on File Prior to Visit: buPROPion XL (WELLBUTRIN XL) 300 mg 24 hr tablet Take 1 tablet by mouth once daily. Swab (NO-STING SKIN-PREP) swab 1 application once daily as needed (prior to attaching TENS unit pads). TENS unit and electrodes cmpk Use as instructed. Drospirenone-Ethinyl Estradiol 3-0.02 mg per tablet Take 1 tablet by mouth once daily. [place]-3 Fatty Acids (OMEGA 3) 550 mg ORAL Cap Take one(1) tablet daily. No current facility-administered medications on file prior to visit. Previous Medical History PAST MEDICAL HISTORY Diagnosis Date - Anorexia nervosa, restricting type - Anxiety - Ascending aorta dilation (HCC) 3.5 cm - Cervical disc disease C6-7 - Eating disorder, unspecified - Esophageal reflux - Lung nodule right - Major depressive disorder, recurrent episode, mild (HCC) - PTSD (post-traumatic stress disorder) - Snoring Previous Surgical History PAST SURGICAL HISTORY Procedure Laterality Date - LAMINECTOMY,CERVICAL 03/14/12 Laminectomy, cervical, diskectomy with fusion. - LAPAROSCOPIC CHOLEYCYSTECTOMY 1996 Cholecystectomy, lap - LIGATE FALLOPIAN TUBE 2001 Tubal ligation - REPAIR UMBILICAL NICA,5+Y/O,REDUC 06/11/2007 Simple Family History FAMILY HISTORY Problem Relation Age of Onset - Hypertension Mother - Cancer Maternal Grandmother Stomach - Cancer Paternal Grandmother COPD - Alcohol/Drug Maternal Grandfather - Ischemic Heart Disease Maternal Grandfather - Hypertension Maternal Grandfather - Hypertension Brother - Lung cancer [OTHER] Paternal Grandfather - pancreatic ca [OTHER] Paternal Grandfather 4 MGM siblings and patient's cousins. 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 Neck: Supple, no adenopathy; thyroid symmetric, normal size, no bruits. Lungs: Lungs clear to auscultation. No wheezing, rhonchi, rales. Heart: RRR without murmur, gallop, or rubs. No ectopy. Appearance: well dressed well groomed, cooperative and pleasant Behavior: good eye contact and relaxed Speech: fluent and coherent Mood: euthymic Affect: appropriate Perceptions: none Thought process: goal directed Thought Content: normal Intelligence level: normal Insight: fair Judgment: good ASSESSMENT/PLAN: 1. Eating disorder - ICD9: 307.50, ICD10: F50.9 - Stable. Continue with counseling with Dr. Mccullough and trauma counseling In [place]. Follow up in 2 months. Sooner if needed. Radha Camara, MSN SURVEY AND MAPPING TECHNICIAN.LUMP MACHINE OPERATOR CNOV Observed: 08/02/2017 Status: COMPLETED Source: [place] 9:40 AM [facility] REPOSITORY Office Visit (FAMPWS) MARLENE CARBALLO ([id number]) 1965 F Date Time Provider Department 08/02/17 9:40 AM RADHA CAMARA (AGRICULTURAL TECHNICIAN) FAMPWS During your visit today, we recorded the following information about you: Temperature Pulse Respiration Blood pressure 97.8 degrees 66/minute 14/minute 92/62 Weight 59.2 kg Radha Camara, MSN SURVEY AND MAPPING TECHNICIAN.LUMP MACHINE OPERATOR 08/02/2017 2:15 PM Signed Chief Complaint Patient presents with: Recheck: 2 month F/U HPI Marlene Carballo is a 51 year old female who presents here today for routine follow up eating disorder. She continues to follow with Dr. Mccullough every other week. Not following any meal plan at this time. States feeling ANDquot;pretty goodANDquot;. Admits she would be at about ANDquot;70%ANDquot; of her meal plan if she were to monitor. She is exercising by walking. 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 -Family stress-better, one son moved back home, going to school artificial fly tier and working as well. Neck pain: -uses spices for pain-tumeric, black pepper, parth, cyanne and cinnamon, mixed in applesauce. Uses as an antiinflammatory. Tens unit prn. Last 3 Encounter Wt Readings: Date: Wt: 08/02/2017 59.2 kg (130 lb 9.6 oz) 05/23/2017 58.1 kg (128 lb) 03/21/2017 58.1 kg (128 lb) The ROS is otherwise negative. Past medical history, appointments, medications, allergies reviewed. Patient Allergies ALLERGIES No Known Allergies Current Medications Current Outpatient Prescriptions on File Prior to Visit: buPROPion XL (WELLBUTRIN XL) 300 mg 24 hr tablet Take 1 tablet by mouth once daily. Swab (NO-STING SKIN-PREP) swab 1 application once daily as needed (prior to attaching TENS unit pads). TENS unit and electrodes cmpk Use as instructed. Drospirenone-Ethinyl Estradiol 3-0.02 mg per tablet Take 1 tablet by mouth once daily. [place]-3 Fatty Acids (OMEGA 3) 550 mg ORAL Cap Take one(1) tablet daily. No current facility-administered medications on file prior to visit. Previous Medical History PAST MEDICAL HISTORY Diagnosis Date - Anorexia nervosa, restricting type - Anxiety - Ascending aorta dilation (HCC) 3.5 cm - Cervical disc disease C6-7 - Eating disorder, unspecified - Esophageal reflux - Lung nodule right - Major depressive disorder, recurrent episode, mild (HCC) - PTSD (post-traumatic stress disorder) - Snoring Previous Surgical History PAST SURGICAL HISTORY Procedure Laterality Date - LAMINECTOMY,CERVICAL 03/14/12 Laminectomy, cervical, diskectomy with fusion. - LAPAROSCOPIC CHOLEYCYSTECTOMY 1996 Cholecystectomy, lap - LIGATE FALLOPIAN TUBE 2001 Tubal ligation - REPAIR UMBILICAL NICA,5+Y/O,REDUC 06/11/2007 Simple Family History FAMILY HISTORY Problem Relation Age of Onset - Hypertension Mother - Cancer Maternal Grandmother Stomach - Cancer Paternal Grandmother COPD - Alcohol/Drug Maternal Grandfather - Ischemic Heart Disease Maternal Grandfather - Hypertension Maternal Grandfather - Hypertension Brother - Lung cancer [OTHER] Paternal Grandfather - pancreatic ca [OTHER] Paternal Grandfather 4 MGM siblings and patient's cousins. 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 Neck: Supple, no adenopathy; thyroid symmetric, normal size, no bruits. Lungs: Lungs clear to auscultation. No wheezing, rhonchi, rales. Heart: RRR without murmur, gallop, or rubs. No ectopy. Appearance: well dressed well groomed, cooperative and pleasant Behavior: good eye contact and relaxed Speech: fluent and coherent Mood: euthymic Affect: appropriate Perceptions: none Thought process: goal directed Thought Content: normal Intelligence level: normal Insight: fair Judgment: good ASSESSMENT/PLAN: 1. Eating disorder - ICD9: 307.50, ICD10: F50.9 - Stable. Continue with counseling with Dr. Mccullough and trauma counseling In [place]. Follow up in 2 months. Sooner if needed. Radha Camara, MSN SURVEY AND MAPPING TECHNICIAN.LUMP MACHINE OPERATOR Referring Provider: KASI REYNOLDS (LUMP MACHINE OPERATOR) [[id number]] Allergies As of Date: 08/02/2017 (No Known Allergies) Date Reviewed: 08/02/2017 Reviewed by: Wendy Melton Psych Assistant - Fully Assessed Reason for Visit: Recheck [92] Cmt: 2 month F/U Primary Visit Diagnosis:Eating disorder [F50.9] Prescriptions as of 08/02/2017 Sig: BUPROPION XL 300 MG 24 HR TAB Take 1 tablet by mouth once d* SWAB 1 application once daily as n* TENS UNIT AND ELECTRODES COMB* Use as instructed. DROSPIRENONE-ETHINYL ESTRADIO* Take 1 tablet by mouth once d* * FLAXSEED OIL 1000 MG CAPSULE Take one(1) tablet daily. Problem List As Of Date 08/02/2017 Noted Resolved Eating disorder [F50.9] INVALID FOR* More... UMBILICAL HERNIA [K42.9] INVALID FOR* Osteopenia [M85.80] INVALID FOR* PVC's (premature ventricular contractions) [I49*INVALID FOR* Mitral prolapse [I34.1] INVALID FOR* Depression [F32.9] INVALID FOR* Cervicalgia [M54.2] INVALID FOR* PMDD (premenstrual dysphoric disorder) [F32.81] INVALID FOR* Cervical strain [S16.1XXA] INVALID FOR* DDD (degenerative disc disease), cervical [M50.*INVALID FOR* Ascending aorta dilatation (HCC) [I77.810] INVALID FOR* Eating disorder, unspecified [F50.9] Anxiety [F41.9] Major depressive disorder, recurrent episode, m* Anorexia nervosa, restricting type [F50.01] PTSD (post-traumatic stress disorder) [F43.10] Vitamin D deficiency [E55.9] INVALID FOR* Episcleritis of left eye [H15.102] INVALID FOR* Disposition: Return in about 2 months (around 10/02/2017). Follow-up and Disposition History Recorded Encounter Status:Closed by RADHA CAMARA CNP on 08/02/17 PROGRESS Observed: 07/31/2017 Status: COMPLETED Source: [place] 6:45 PM [facility] REPOSITORY HNO ID: [id number] Author: Sanchez Mccullough Service: (none) Author Type: Psychologist Type: Progress Notes Filed: 08/14/2017 10:01 AM Note Text: [facility] Progress Note Marlene Carballo 07/30/2017 [id number] Provider: Sanchez Wood PSYD CPT Code: 83085 Psychotherapy 38-52 minutes Time: Approximately 45 minutes was spent in therapy. Parties Present: Patient Patient Presentation/Concerns: Marlene was very depressed today and reported a significant number of eating disorder thoughts. She reported continuing to eat but battling eating disorder thoughts daily/all day. She stated having the urge to do other self-harm behaviors (such as laxatives, hit herself etc). She denied engaging in these behaviors. She was reluctant to admit thoughts about self harm, she stated. Marlene indicated that this increase was due to more trauma work with her therapist Andrew. They were working on exposure to certain words/triggers. She stated that she has discussed her reaction with him. They have processed this in session. I asked her if she felt that the trauma work was too much for her. She said that she wished to continue and wanted to learn how to cope effectively with the triggers from the past. However, she has also been without therapy/support for approximately three weeks. She tried to reach out to a friend for support. Mental Status: Mood: neutral Affect: mood-congruent Thoughts/Associations:goal directed Suicidal/Homicidal Ideation: None expressed or evidenced Other Observations: None Therapy Focus Mood/affect regulation MEDICATIONS: Per medical record: Current Outpatient Prescriptions: buPROPion XL (WELLBUTRIN XL) 300 mg 24 hr tablet Take 1 tablet by mouth once daily. Swab (NO-STING SKIN-PREP) swab 1 application once daily as needed (prior to attaching TENS unit pads). [facility] Use as instructed. Drospirenone-Ethinyl Estradiol 3-0.02 mg per tablet Take 1 tablet by mouth once daily. [place]-3 Fatty Acids (OMEGA 3) 550 mg ORAL Cap Take one(1) tablet daily. No current facility-administered medications for this visit. Psychiatric Medication Issues: No change from previous appointment DIAGNOSIS: MO PTSD Anorexia Treatment Modality/Interventions: Cognitive Behavioral TREATMENT ASSESSMENT/PROGRESS: Stable TREATMENT PLAN/GOALS: Continue in therapy focusing on affect management. 1) Call Andrew, her trauma therapist to connect about her treatment 2) Continue to use CBT and DBT skills for coping (urge surfing, soothing activities). 3) Seek additional support for Marlene (support group etc). Next appointment: 2 weeks Sanchez Wood PSYD PROGRESS Observed: 07/25/2017 Status: COMPLETED Source: [facility] 3:27 PM CLINIC OTHER CAMPUS REPOSITORY O ID: [id number] Author: Sendy Hamm Service: (none) Author Type: Physician Type: Progress Notes Filed: 07/25/2017 3:33 PM Note Text: Marlene Carballo 1965 Psychiatric Evaluation -July 25, 2017 seen for 30 minutes History obtained per interview with patient and review of chart. CC: Follow Up; Depression; and Anxiety/ Anorexia HPI/Interim History: Mood stable and euthymic since summer 2016. Denies depression. Mild ruminative anxiety associated with job changes. Starting 3 part-time jobs within the past month. 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 Enjoyed spring break family trip to [place]. Children doing well. Reggie moving to [place] with . Good relationship with Mitch. Lizett graduating high school this year. Erik doing well. Eating 3 meals and 2 snacks daily. Denies binging or purging. Denies laxative dipolar Sudafed use. Denies excessive exercise. Compliant with medication. Denies adverse effects. Labs from January 2016 reviewed. Phosphorous normal at 3.0. Creatinine mildly elevated at 1.08. TSH normal at 2.9. Hemoglobin and hematocrit low at 11 and 33. [place] level from September 2015 - 0.2 Labs reviewed from July 19, 2016. Creatinine 1.0. Family/social history -Wilmar 4 children - Reggie (23), Mitch (21), Lizett Snyder (18), Erik (16) Past medical history Cervical fusion Current Psychiatric Meds: Wellbutrin XL 300 mg daily MSE: Patient is alert and oriented in no acute distress. Appears stated age. Ambulatory with normal gait and station. Casually dressed and groomed with appropriate hygiene. Cooperative with interview. Good eye contact. No psychomotor agitation or retardation. Mood is euthymic Affect congruent. Speech is clear and of regular rate and volume. Language fluent. Thought process organized. Associations logical. Thought content significant for ruminative anxiety . No current suicidal ideation related to her detected. No homicidal ideation or symptoms of psychosis related to her detected. Immediate recent and remote memory grossly intact. Attention and concentration are good. Estimated intelligence fund of knowledge average. Judgment and insight are fair to good.. Diagnosis: Encounter Diagnosis ICD-10-CM 1. Major depressive disorder, recurrent episode, mild (HCC) F33.0 2. Anxiety F41.9 3. PTSD (post-traumatic stress disorder) F43.10 4. Anorexia nervosa, restricting type F50.01 5. Vitamin D deficiency E55.9 Plan: Continue medication management and psychotherapy. Risks benefits alternatives of medications discussed with patient. Risks of Wellbutrin and disordered eating discussed including increased risk of seizure. Benefit continues to outweigh risk at this time. Patient acknowledges understanding that should ongoing weight loss and disordered eating symptoms persist that alternative medications may be better options. Wellbutrin XL 300 mg daily September 24, 2016 labs reviewed. CMP within normal limits. TSH 1.9 Continue follow-up with primary care physician Dr. Mcbride. Continue therapy with Dr. Sanchez Matos. Continue with Andrew at [place] of traumatic stress. Review recovery journal. Normalized eating encouraged. Encouraged to follow meal plan with food logs. Decreased social media. No Sudafed. Encouraged to see dietitian. Referral provided for Mindy. . Psychotherapy Time: 20 minutes insight oriented psychotherapy regarding trauma and need for ongoing treatment Follow up with primary care physician/providers for medical issues. Plan discussed including risks, benefits and side effects of medications (ongoing discussion). Patient acknowledges understanding and is agreeable to plan. Patient feels able to maintain safety for self and others. Patient agrees to seek help or emergency care should symptoms worsen. Sendy Hamm MD PROGRESS Observed: 07/04/2017 Status: COMPLETED Source: [place] 3:46 PM [facility] RE[facility]IT[facility] HNO ID: [id number] Author: Sanchez Mccullough Service: (none) Author Type: Psychologist Type: Progress Notes Filed: 07/11/2017 1:54 PM Note Text: [facility] Progress Note Marlene Carballo 07/03/2017 [id number] Provider: Sanchez Wood PSYD CPT Code: 92438 Psychotherapy 38-52 minutes Time: Approximately 45 minutes was spent in therapy. Parties Present: Patient Patient Presentation/Concerns: Marlene indicated that her trauma therapist asked how the eating disorder is doing. She stated not knowing how to answer that question. We discussed the factors that would help assess this (stability of weight, not restricting, level of eating disorder thoughts, etc). She stated restricting more than she admits to herself. Also, she stated needing direct questions to help her to be accountable. She will say, fine if asked a broad question. The visit from her mother and time away from work appeared to have triggered more eating disorder behavior. She delayed her weight in. Marlene indicated going on vacation with her family next week and starting three new jobs when she returns. Mental Status: Mood: depressed Affect: mood-congruent Thoughts/Associations:goal directed Suicidal/Homicidal Ideation: None expressed or evidenced Other Observations: None Therapy Focus Self-care and Mood/affect regulation MEDICATIONS: Per medical record: Current Outpatient Prescriptions: buPROPion XL (WELLBUTRIN XL) 300 mg 24 hr tablet TAKE ONE TABLET BY MOUTH ONCE DAILY Swab (NO-STING SKIN-PREP) swab 1 application once daily as needed (prior to attaching TENS unit pads). TENS unit and electrodes cmpk Use as instructed. Drospirenone-Ethinyl Estradiol 3-0.02 mg per tablet Take 1 tablet by mouth once daily. [place]-3 Fatty Acids (OMEGA 3) 550 mg ORAL Cap Take one(1) tablet daily. No current facility-administered medications for this visit. Psychiatric Medication Issues: No change from previous appointment DIAGNOSIS: Diagnosis: MO Anorexia Treatment Modality/Interventions: Cognitive Behavioral TREATMENT ASSESSMENT/PROGRESS: Stable TREATMENT PLAN/GOALS: Continue in therapy focusing on affect management. Increasing food intake/reduce restriction. Utilize skills to cope effectively with trauma and eating disorder triggers. Next appointment: 2 weeks Sanchez Wood PSYD PROGRESS Observed: 06/19/2017 Status: COMPLETED Source: [place] 5:21 PM [facility] RE[facility]IT[facility] HNO ID: [id number] Author: Sanchez Mccullough Service: (none) Author Type: Psychologist Type: Progress Notes Filed: 07/02/2017 9:40 AM Note Text: [facility] Progress Note Marlene Carballo 06/19/2017 [id number] Provider: Sanchez Wood PSYD CPT Code: 65249 Psychotherapy 38-52 minutes Time: Approximately 45 minutes was spent in therapy. Parties Present: Patient Patient Presentation/Concerns: Marlene spoke about her mother's visit. She had prepared for several scenarios in which mother could be hurtful. Her mother tried to hug her. She put a stop to it. She processed her sense of guilt and beliefs of how she thought she should act. When upset, her eating disorder thoughts/behaviors increase. We discussed coping skills. Mental Status: Mood: neutral Affect: mood-congruent Thoughts/Associations:goal directed Suicidal/Homicidal Ideation: None expressed or evidenced Other Observations: None Therapy Focus Mood/affect regulation MEDICATIONS: Per medical record: Current Outpatient Prescriptions: buPROPion XL (WELLBUTRIN XL) 300 mg 24 hr tablet TAKE ONE TABLET BY MOUTH ONCE DAILY Swab (NO-STING SKIN-PREP) swab 1 application once daily as needed (prior to attaching TENS unit pads). TENS unit and electrodes cmpk Use as instructed. Drospirenone-Ethinyl Estradiol 3-0.02 mg per tablet Take 1 tablet by mouth once daily. [place]-3 Fatty Acids (OMEGA 3) 550 mg ORAL Cap Take one(1) tablet daily. No current facility-administered medications for this visit. Psychiatric Medication Issues: No change from previous appointment DIAGNOSIS: Diagnosis: MO Anorexia Treatment Modality/Interventions: Cognitive Behavioral TREATMENT ASSESSMENT/PROGRESS: Stable TREATMENT PLAN/GOALS: Continue in therapy focusing on affect management, mindful eating, coping skills. Coping effectively with trauma triggers. Next appointment: 2 weeks Sanchez Wood PSYD PROGRESS Observed: 06/06/2017 Status: COMPLETED Source: [place] 2:42 PM [facility] RE[facility]IT[facility] HNO ID: [id number] Author: Sanchez Mccullough Service: (none) Author Type: Psychologist Type: Progress Notes Filed: 06/13/2017 3:34 PM Note Text: [facility] Progress Note Marlene Carballo 06/06/2017 [id number] Provider: Sanchez Wood PSYD CPT Code: 63033 Psychotherapy 38-52 minutes Time: Approximately 45 minutes was spent in therapy. Parties Present: Patient Patient Presentation/Concerns: Marlene indicated that she is experiencing a lot of trauma reactions due to a new assignment by her trauma therapist, Andrew, concerning writing an Impact Statement. She stated that this exercise caused flashbacks. Also, her mother is coming to visit. She spoke about her reaction (shutting down, being afraid, waiting for her to say something hurtful). She stated that she misses the feeling of the eating disorder (numbing out) when experiencing triggers. Discussed other healthy ways to cope. Mental Status: Mood: depressed Affect: mood-congruent Thoughts/Associations:goal directed Suicidal/Homicidal Ideation: None expressed or evidenced Other Observations: Marlene seemed more shut down Therapy Focus Self-care, Stress management and Mood/affect regulation MEDICATIONS: Per medical record: Current Outpatient Prescriptions: Swab (NO-STING SKIN-PREP) swab 1 application once daily as needed (prior to attaching TENS unit pads). buPROPion XL (WELLBUTRIN XL) 300 mg 24 hr tablet Take 1 tablet by mouth once daily. TENS unit and electrodes cmpk Use as instructed. Drospirenone-Ethinyl Estradiol 3-0.02 mg per tablet Take 1 tablet by mouth once daily. [place]-3 Fatty Acids (OMEGA 3) 550 mg ORAL Cap Take one(1) tablet daily. No current facility-administered medications for this visit. Psychiatric Medication Issues: No change from previous appointment DIAGNOSIS: Diagnosis: Generalized Anxiety Disorder Anorexia Treatment Modality/Interventions: Cognitive Behavioral TREATMENT ASSESSMENT/PROGRESS: Stable TREATMENT PLAN/GOALS: Continue in therapy focusing on affect management, cope with trauma triggers in healthy ways. Next appointment: 2 weeks Sanchez Wood PSYD PROGRESS Observed: 05/23/2017 Status: COMPLETED Source: [place] 8:29 AM [facility] REPOSITORY [facility] ID: [id number] Author: Kasi Melara) JULY Reynodls Service: (none) Author Type: Nurse Practitioner Type: Progress Notes Filed: 05/23/2017 8:50 AM Note Text: Chief Complaint Patient presents with: Weight Check HPI Marlene Carballo is a 51 year old female who presents here today for Above Complaints. Patient presents to the office for a weight check. Has been under the care of Dr. Sanchez Mccullough. Has a history of restrictive eating pattern. Weight is stable. Had some difficulty with the holidays. Denies any restrictive behaviors. Meals has been consistent. Portions have been adequate. Wellbutrin has been assisting with her mood. She has thought to about going off of it, but does not want to in the winter. Neck pain has been well controlled. Does occasionally using TENS unit, also will use (2) tabs of ibuprofen one to two times per. No chest pain, shortness of breath, palpitations. No fevers or chills. Past medical history, appointments, medications, allergies reviewed. Previous Medical History PAST MEDICAL HISTORY Diagnosis Date - Anorexia nervosa, restricting type - Anxiety - Ascending aorta dilation (HCC) 3.5 cm - Cervical disc disease C6-7 - Eating disorder, unspecified - Esophageal reflux - Lung nodule right - Major depressive disorder, recurrent episode, mild (HCC) - PTSD (post-traumatic stress disorder) - Snoring Previous Surgical History PAST SURGICAL HISTORY Procedure Laterality Date - LAMINECTOMY,CERVICAL 03/14/12 Laminectomy, cervical, diskectomy with fusion. - LAPAROSCOPIC CHOLEYCYSTECTOMY 1996 Cholecystectomy, lap - LIGATE FALLOPIAN TUBE 2001 Tubal ligation - REPAIR UMBILICAL NICA,5+Y/O,REDUC 06/11/2007 Simple Family History FAMILY HISTORY Problem Relation Age of Onset - Hypertension Mother - Cancer Maternal Grandmother Stomach - Cancer Paternal Grandmother COPD - Alcohol/Drug Maternal Grandfather - Ischemic Heart Disease Maternal Grandfather - Hypertension Maternal Grandfather - Hypertension Brother - Lung cancer [OTHER] Paternal Grandfather - pancreatic ca [OTHER] Paternal Grandfather 4 MGM siblings and patient's cousins. Patient Allergies ALLERGIES No Known Allergies Current Medications Current Outpatient Prescriptions on File Prior to Visit: Swab (NO-STING SKIN-PREP) swab 1 application once daily as needed (prior to attaching TENS unit pads). buPROPion XL (WELLBUTRIN XL) 300 mg 24 hr tablet Take 1 tablet by mouth once daily. TENS unit and electrodes cmpk Use as instructed. Drospirenone-Ethinyl Estradiol 3-0.02 mg per tablet Take 1 tablet by mouth once daily. [place]-3 Fatty Acids (OMEGA 3) 550 mg ORAL Cap Take one(1) tablet daily. No current facility-administered medications on file prior to visit. Social History Social History Marital status: Spouse name: Isabelle Years of education: Number of children: 4 Occupational History Occupation Employer Comment [employer]* [employer]* Social History Main Topics Smoking status: Never Smoker Smokeless status: Never Used Alcohol use: No Drug use: No Sexual activity: Yes Partners with: Male REVIEW OF SYSTEMS: as above ? Reviewed relevant PMHx, PSHx, Social Hx, current medications and allergies. EXAM: BP 100/60 Pulse 88 Temp 36.6 ?C (97.8 ?F) (Tympanic) Resp 20 Wt 58.1 kg (128 lb) BMI 22.32 kg/m2 General Appearance: Well appearing, alert, in no acute distress, well-hydrated, well nourished.. Lungs: Lungs clear to auscultation. No wheezing, rhonchi, rales. Heart: RRR without murmur, gallop, or rubs. No ectopy. Health Maintenance List HPV EVERY 5 YEARS due on 10/27/1997 TETANUS due on 10/13/2012 MAMMOGRAM due on 07/09/2015 PAP EVERY 5 YEARS due on 06/27/2018 DIABETES SCREEN due on 03/21/2020 LIPID SCREEN due on 02/01/2021 INFLUENZA Completed Data reviewed Component Latest Ref Rng AND Units 03/21/2017 Protein, Total 6.3 - 8.0 g/dL 7.4 Albumin 3.9 - 4.9 g/dL 4.2 Calcium 8.5 - 10.2 mg/dL 9.4 Bilirubin, Total 0.2 - 1.3 mg/dL 0.2 Alkaline Phosphatase 32 - 117 U/L 39 AST 13 - 35 U/L 18 Glucose 74 - 99 mg/dL 82 BUN 7 - 21 mg/dL 13 Creatinine 0.58 - 0.96 mg/dL 0.82 Sodium 136 - 144 mmol/L 140 Potassium 3.7 - 5.1 mmol/L 4.5 Chloride 97 - 105 mmol/L 102 CO2 22 - 30 mmol/L 25 Anion Gap 9 - 18 mmol/L 13 ALT 7 - 38 U/L 11 eGFR- >60 eGFR-All Other Races . >60 Phosphorus 2.7 - 4.8 mg/dL 3.5 Magnesium 1.7 - 2.3 mg/dL 2.1 ASSESSMENT/PLAN: 1. Anorexia nervosa, restricting type - ICD9: 307.1, ICD10: F50.01 (primary diagnosis) - Weight is stable. - Discussed importance of continuing to not skip meals. - Discussed lab results of recent blood work that was completed. It was a goal of hers to get it completed. - Continue following with Dr. Mccullough. Has appointments scheduled. - Discussed making follow up in 3 months instead of 2 months, patient would like to keep every 2 months. 2. Cervicalgia - ICD9: 723.1, ICD10: M54.2 - Stable, continue use of TENS, prn use of ibuprofen. Follow up in 2 months. Sooner if problems arise. Kasi Reynolds CNP PROGRESS Observed: 05/22/2017 Status: COMPLETED Source: [place] 6:28 PM [facility] REPOSIT[facility] HNO ID: [id number] Author: Sanchez Mccullough Service: (none) Author Type: Psychologist Type: Progress Notes Filed: 05/27/2017 10:15 AM Note Text: [facility] Progress Note Marlene Carballo 05/15/2017 [id number] Provider: Sanchez Wood PSYD CPT Code: 30608 Psychotherapy 38-52 minutes Time: Approximately 45 minutes was spent in therapy. Parties Present: Patient Patient Presentation/Concerns: Marlene indicated eating more normally. She stated trying to maintain this behavior until she is weighed again. She met with Andrew, her trauma therapist, yesterday. When talking about early trauma, the eating disorder symptoms/thoughts become stronger to cope (save the day.) Discussed other ways of coping. Mental Status: Mood: neutral Affect: mood-congruent Thoughts/Associations:goal directed Suicidal/Homicidal Ideation: None expressed or evidenced Other Observations: None Therapy Focus Mood/affect regulation MEDICATIONS: Per medical record: Current Outpatient Prescriptions: Swab (NO-STING SKIN-PREP) swab 1 application once daily as needed (prior to attaching TENS unit pads). buPROPion XL (WELLBUTRIN XL) 300 mg 24 hr tablet Take 1 tablet by mouth once daily. TENS unit and electrodes cmpk Use as instructed. Drospirenone-Ethinyl Estradiol 3-0.02 mg per tablet Take 1 tablet by mouth once daily. [place]-3 Fatty Acids (OMEGA 3) 550 mg ORAL Cap Take one(1) tablet daily. No current facility-administered medications for this visit. Psychiatric Medication Issues: No change from previous appointment DIAGNOSIS: Diagnosis: Generalized Anxiety Disorder PTSD Anorexia Treatment Modality/Interventions: Cognitive Behavioral TREATMENT ASSESSMENT/PROGRESS: Stable TREATMENT PLAN/GOALS: Continue in therapy focusing on affect management. CBT for eating disorders. Next appointment: 2 weeks Sanchez Wood PSYD ALLERGIES ALLERGIES DATE TYPE / CODE NAME / CODE REACTION SEVERITY SOURCE 04/28/2018 Drug No Known Unknown [facility] Allergy/416 Allergies/[id number] [facility] 552137(SNOM 0388(RXNORM) Repository ED CT) Drug NO KNOWN [facility] Class/32424 ALLERGIES Other [place] 1003(SNOMED Repository CT) [id number] NO KNOWN [facility]ository ENCOUNTERS ENCOUNTERS ADMIT/DISCHARGE ACCOUNT NUMBER ADMITTING ENCOUNTER LOCATION SOURCE CLASS 05/08/2018/05/08/19 [id number] Ambulatory [address] [place] Repository 05/08/2018/05/08/19 [id number] Ambulatory [address] [place] Repository 05/06/2018/05/06/19 [id number] Ambulatory [address] Other [place] Repository 05/06/2018/05/06/19 [id number] Ambulatory [address] MEDICAL Repository CENTERBuildi ng:AGPSYHWW 05/05/2018/05/05/19 [id number] Ambulatory [address] [place] Repository 05/05/2018/05/06/19 [id number] Ambulatory [address] [place] Repository 05/01/2018/05/08/19 [id number] Ambulatory [address] [place] Repository 04/30/2018/04/30/19 [id number] Ambulatory [facility] [address] [place] [address] ding:ENRoom: Repository AC10 04/25/2018 [id number] Ambulatory [facility] Repository 04/24/2018 [id number] Ambulatory [facility] MEDICAL Repository CENTERBuildi ng:AGPSYHWW 04/23/2018/04/29/19 [id number] Ambulatory [address] [place] Repository 04/14/2018/04/16/19 [id number] Ambulatory [address] [place] Repository 04/10/2018/04/11/20 [id number] Ambulatory [address] Main [place] Repository 04/03/2018/04/22/19 [id number] Ambulatory [place] [facility] Main [place] Repository 04/03/2018/04/03/20 [id number] Ambulatory [place] [facility] [place] Repository 03/27/2018/04/03/20 [id number] Ambulatory [place] [facility] [place] Repository 03/20/2018/03/21/20 [id number] Ambulatory [place] [facility] [place] Repository 03/14/2018/04/22/19 [id number] [facility] [place] Repository 02/20/2018/02/21/20 [id number] Amb[facility] [place] Repository 02/13/2018/02/19/20 [id number] Amb[facility] [place] Repository 02/10/2018/02/12/20 [id number] Amb[facility] [place] Repository 01/23/2018/01/28/20 [id number] Amb[facility] [place] Repository 01/16/2018/01/23/20 [id number] Ambulatory [facility] [place] Repository 01/08/2018/01/22/20 [id number] Ambulatory [facility] [place] Repository 01/01/2018/01/02/20 [id number] Ambulatory [facility] [place] Repository 12/26/2017/12/27/19 [id number] Ambulatory [facility] [place] Repository 12/19/2017/12/27/19 [id number] Ambulatory [facility] [place] Repository 12/12/2017/12/13/19 [id number] Ambulatory [facility] Other [place] Repository 12/12/2017/12/13/19 [id number] Ambulatory [address] MEDICAL Repository CENTERBuildi ng:AGPSYHWW 12/11/2017/12/27/19 [id number] Ambulatory [facility] [place] Repository 12/09/2017/12/11/19 [id number] Ambulatory [facility] [place] Repository 12/05/2017/12/13/19 [id number] Ambulatory [facility] [place] Repository 11/27/2017/12/06/19 [id number] Ambulatory [facility] [place] Repository 11/20/2017/12/05/19 [id number] Ambulatory [facility] [place] Repository 11/06/2017/11/14/19 [id number] Ambulatory [facility] [place] Repository 10/30/2017/11/08/19 [id number] Ambulatory [facility] [place] Repository 10/24/2017/10/31/19 [id number] Ambulatory [facility] [place] Repository 10/07/2017/10/08/19 [id number] Ambulatory [facility] [place] Repository 10/07/2017/10/08/19 [id number] Ambulatory [facility] [place] Repository 10/07/2017/10/10/19 [id number] [facility] [place] Repository 10/03/2017/10/08/19 [id number] [facility] [place] Repository 09/25/2017/10/04/19 [id number] [facility] [place] Repository 09/18/2017/09/26/19 [id number] [facility] [place] Repository 09/14/2017 [id number] Ambulatory [facility] ding:OPBI Repository 09/12/2017/09/20/19 [id number] [facility] [place] Repository 09/04/2017/09/11/19 [id number] [facility] [place] Repository 08/29/2017/09/07/19 [id number] [facility] [place] Repository 08/22/2017/08/29/19 [id number] [facility] [place] Repository 08/15/2017/08/29/19 [id number] [facility] [place] Repository 08/07/2017/08/23/19 [id number] [facility] [place] Repository 08/02/2017/08/06/19 [id number] [facility] [place] Repository 07/30/2017/08/15/19 [id number] [facility] [place] Repository 07/25/2017/07/26/19 [id number] [facility] [place] Repository 07/25/2017/07/26/19 [id number] Ambulatory [facility] Pereyra [address] [place] [address] MEDICAL Repository CENTERBuildi ng:AGPSYHWW 07/03/2017/07/12/19 [id number] [facility] [place] Repository 06/19/2017/07/03/19 [id number] [facility] [place] Repository 06/06/2017/06/14/19 [id number] [facility] [place] Repository 05/23/2017/05/23/19 [id number] [facility] [place] Repository 05/15/2017/05/27/19 [id number] [facility] [place] Repository PAYERS PAYERS ENCOUNTER GUARANTOR PAYER SUBSCRIBER SOURCE 05/06/2018 MARLENE Primary ISABELLE R [facility] YOUNGDOB: Insurance:BLUE CARD YOUNGDOB: Health System S PPOPolicy Number: [id number] Repository SCHOOL [id number] [facility], Date: [place] [address]Rip: () 04/30/2018 ISABELLE CARBALLO[address] S Primary ISABELLE YOUNGDOB: [employer] Insurance:ANTHEMPolic [id number], y Number: [place] [id number]: [id number] Repository Date:8608-05-11MM [address] () [id number] [place] [address]HK: 04/30/2018 Secondary NOT GIVENUNK [employer] Insurance:SELF PAY [facility] Number: Effective Repository Date:2018-04-17 04/25/2018 Marlene B Primary Isabelle R [facility] Health YoungDOB: Insurance:Blue YoungDOB: System S CrossPolicy Number: [id number] Repository School Effective Date: [place] [address] 04/24/2018 MARLENE Primary ISABELLE R [facility] YOUNGDOB: Insurance:BLUE CARD YOUNGDOB: Health System S PPOPolicy Number: [id number] Repository SCHOOL [id number] [place] [address]Odw: () 12/12/2017 MARLENE Primary ISABELLE R [facility] YOUNGDOB: Insurance:BLUE CARD YOUNGDOB: Health System S PPOPolicy Number: [id number] Repository SCHOOL [id number] [place], Date: [place] [address]Wpo: (HP) 09/14/2017 Isabelle Carballo54 S Primary Isabelle YoungDOB: [employer] Insurance:ANTHEMPolic [id number] [facility], y Number: [place] [id number]: [id number] Repository Date:[id number] () [id number] [address]UH: 09/14/2017 Secondary NOT GIVENUNK [place] Insurance:SELF PAY [facility] Number: Effective Repository Date:2017-08-26 07/25/2017 MARLENE Pereyra YOUNGDOB: Insurance:BLUE CARD [facility] [id number] S PPOPolicy Number: [id number] [facility] [id number] [facility], Date: [place] [address]Wmm: ()
== END 2018-04-30 15:15 | disposition home or self-care (01) ==
LOC: EN 11:39 → AC 11:40
PROVIDERS: Family Provider Family Medicine; PCP Family Medicine; Referring Provider Surgery; Visit Provider Surgery
PROC: 0DJD8ZZ Inspection of Lower Intestinal Tract, Via Natural or Artificial Opening Endoscopic (ICD-10-PCS; CPT 45378; principal; 2018-04-30 12:55)
DX: K29.50 Unspecified chronic gastritis without bleeding (principal); D12.5 Benign neoplasm of sigmoid colon; K59.00 Constipation, unspecified; Z80.0 Family history of malignant neoplasm of digestive organs; F41.9 Anxiety disorder, unspecified; F32.9 Major depressive disorder, single episode, unspecified; F43.10 Post-traumatic stress disorder, unspecified; I49.3 Ventricular premature depolarization; M50.923 Unspecified cervical disc disorder at C6-C7 level; Z86.2 Personal history of diseases of the blood and blood-forming organs and certain disorders involving the immune mechanism; Z90.49 Acquired absence of other specified parts of digestive tract; Z79.899 Other long term (current) drug therapy
CPT/HCPCS: 43239; 45385; 88305; 88342; J7120

== ENCOUNTER → 2018-10-13 | Outpatient (CLI) | payer BC, SELFPAY ==
--- NOTE | 2018-10-13 10:22 | BI_ITS ---
MAMMOGRAPHY - BILATERAL SCREENING REASON FOR EXAM: Female, 52 years old. Routine annual screening examination. PERTINENT HISTORY: Non-contributory. TECHNIQUE: Digital bilateral breast sera (3D mammographic acquisition) in the CC and MLO projections. 2-D mediolateral oblique (MLO) and craniocaudad (CC) views of both breasts were obtained. CAD: Full Field Digital Mammography with Computer Added Detection was performed. COMPARISON: Comparison is made with prior study dated September 14, 2017. FINDINGS: Breast Composition: There are scattered areas of fibroglandular density. There are no dominant masses or suspicious calcifications. No other significant abnormalities are identified. There has been no significant change since the prior study. BI/SCREEN MAMM (CAD) W/SERA BILAT IMPRESSION: Stable bilateral screening mammogram. Yearly follow-up mammogram recommended. (A) ASSESSMENT CATEGORY: BIRADS Category 1: Negative. A letter regarding these results will be sent to the patient by the facility within 30 days. Approximately 10% of breast cancers are not detected by mammography. A normal mammogram should not delay biopsy of a clinically suspicious abnormality. [id number] Electronically Signed: Ramy Hernandez, at 14:01 EDT , Service support ,
== END | disposition home or self-care (01) ==
LOC: OPBI 10:20
PROVIDERS: Family Provider Family Medicine; PCP Family Medicine; Referring Provider Obstetrics & Gynecology; Visit Provider Obstetrics & Gynecology
DX: Z12.31 Encounter for screening mammogram for malignant neoplasm of breast (principal)
CPT/HCPCS: 77063; 77067